=== PATIENT | female | born 1940 | race Caucasian/White ===

== ENCOUNTER → 2018-02-04 11:09 | Outpatient (CLI) | payer BC, SELFPAY ==
--- NOTE | 2018-02-04 | DI.MRI.S_ITS ---
PROCEDURE: MR SHOULDER LT WO CON INDICATIONS: LEFT SHOULDER ROTATOR CUFF INPINGEMENT SYNDROME TECHNIQUE: Noncontrast oblique coronal T2 fast spin echo with fat saturation, oblique sagittal T1 spin echo and T2 fast spin echo with fat saturation, axial T1 spin echo and T2 fast spin echo with fat saturation through the shoulder. COMPARISON: [facility], MR, SHOULDER WITHOUT CONTRAST, 10/30/2017, 13:04. FINDINGS: Image quality: Excellent. Rotator cuff: There is high-grade intrasubstance tearing of the anterior, mid, and posterior supraspinatus tendon extending from the humeral insertion site to the musculotendinous junction. Mild supraspinatus atrophy is present. Small scattered partial-thickness intrasubstance tears of the infraspinatus tendon anteriorly and posteriorly are present. Teres minor is intact. Subscapularis tendon demonstrates low-grade partial-thickness articular surface tears. Bones and bursae: No bone marrow contusions or fractures. No cyst formation within the bony glenoid is present. Moderate periarticular osteophyte formation at the glenohumeral joint is present. There is moderate acromioclavicular joint degeneration. The acromion demonstrates conventional anatomy, without an os acromiale. No pathologic subacromial-subdeltoid or subcoracoid bursal fluid is present. Capsule and soft tissues: Diffuse glenoid labral tearing is present. The long head of the biceps tendon demonstrates normal location and morphology. The rotator interval appears normal, without fibrosis. The coracohumeral ligament is normal in thickness. IMPRESSION: 1. Diffuse high-grade tearing of the supraspinatus tendon, associated with mild supraspinous atrophy. 2. Low-grade partial-thickness tears of the subscapularis and infraspinatus tendons. 3. Acromioclavicular joint osteoarthritis. 4. Glenohumeral joint osteoarthritis associated with diffuse glenoid labral tearing. Dictated by: Kay Garcia M.D. on 02/04/2018 at 13:04 Approved by: Kay Garcia M.D. on 02/04/2018 at 13:13
== END ==
PROVIDERS: PCP Family Medicine; Visit Provider Family Medicine
DX: M75.42 Impingement syndrome of left shoulder (principal); S46.812A Strain of other muscles, fascia and tendons at shoulder and upper arm level, left arm, initial encounter; M19.012 Primary osteoarthritis, left shoulder
CPT/HCPCS: 73221

== ENCOUNTER → 2019-07-29 12:11 | Outpatient (CLI) | payer BC, SELFPAY ==
--- NOTE | 2019-07-29 | DI.MRI.S_ITS ---
PROCEDURE: MR HEAD/BRAIN WO/W CON INDICATIONS: Trigeminal neuralgia TECHNIQUE: Noncontrast sagittal T1 spin echo, axial T2 fast spin echo, axial FLAIR, axial gradient echo, axial diffusion and ADC through the brain. Axial/sagittal/coronal 3-D CISS, thin-slice axial T1 spin echo with fat saturation through the skull base. After the administration of contrast, axial and coronal thin-slice T1 spin echo with fat saturation through the skull base, axial T1 spin echo with fat saturation through the brain. COMPARISON: None. FINDINGS: Image quality: Excellent. Trigeminal nerves: Cisternal segments of the trigeminal nerves are normal in appearance. No vascular loops noted adjacent to the cisternal segments of the trigeminal nerves. Trigeminal nerves have normal appearance and Meckel's cave. Cavernous sinus demonstrates normal postcontrast enhancement. No abnormal mass or abnormal postcontrast enhancement identified along the expected course of the trigeminal nerve divisions. CSF spaces: Ventricles are normal in size and shape. No extra-axial fluid collections. Basal cisterns are patent. Brain: No intracranial bleeds or mass effects. There is moderate, diffuse cerebral volume loss. There are mild periventricular and subcortical white matter chronic microvascular ischemic changes. No abnormal GRE weighted artifact identified in the brain parenchyma. No abnormal intracranial enhancement. Diffusion weighted images show no acute ischemic insults. Hernandez-white matter interface is intact. Brainstem is normal. Normal intravascular flow voids are present. Skull and face: Calvarial marrow signal is normal. Orbits appear normal. Sinuses: Mucosal thickening is noted in the maxillary sinuses bilaterally. The mastoids appear clear. IMPRESSION: 1. Trigeminal nerves and trigeminal nerve divisions are normal in appearance. No abnormal mass or suspicious postcontrast enhancement identified along the trigeminal nerves or the course of the trigeminal nerve divisions. 2. No abnormal intracranial mass or suspicious postcontrast enhancement. 3. Moderate, diffuse cerebral volume loss. 4. Mild periventricular and subcortical white matter chronic microvascular ischemic change. 5. Bilateral maxillary sinus mucosal thickening. Dictated by: Stacey Carter MD, PhD on 07/29/2019 at 15:59 Approved by: Stacey Carter MD, PhD on 07/29/2019 at 16:13
== END ==
PROVIDERS: PCP Family Medicine; Visit Provider Family Medicine
DX: G50.0 Trigeminal neuralgia (principal)
CPT/HCPCS: 70553; A9579

== ENCOUNTER → 2019-08-12 12:32 | Outpatient (CLI) | payer BC, SELFPAY ==
--- NOTE | 2019-08-12 | DI.MRI.S_ITS ---
PROCEDURE: MR CERVICAL SPINE WO CON INDICATIONS: Stricture of artery TECHNIQUE: Noncontrast sagittal T1 spin echo and T2 fast spin echo, sagittal STIR, foraminal oblique sagittal T2 fast spin echo, and axial gradient echo or T2 fast spin echo through the cervical spine. COMPARISON: None. FINDINGS: Image quality: Excellent. Alignment and Curvature: Loss of normal cervical lordosis. Mild grade 1 anterolisthesis of C3 on C4, C4 on C5, and C7 on T1. There is mild grade 1 retrolisthesis of C5 on C6. Bone Marrow: Marrow demonstrates normal overall signal. Mild reactive signal within the endplates adjacent to the C3-C4, C4-C5, C5-C6, C6-C7, and C7-T1 intervertebral discs. Spinal Cord: Visualized spinal cord has normal size and signal. No cerebellar tonsillar herniation. Paraspinous Soft Tissues: No paravertebral masses. Prevertebral soft tissues are normal in thickness. C2-C3: Moderate disc height loss and desiccation. Mild diffuse disc bulge. Mild facet hypertrophy bilaterally. Mild canal stenosis. Mild bilateral foraminal stenosis. C3-C4: Moderate disc height loss and desiccation. Mild diffuse disc bulge. Mild facet and uncovertebral hypertrophy bilaterally. Mild canal stenosis. Moderate bilateral foraminal stenosis. C4-C5: Mild disc height loss and desiccation. Mild diffuse disc bulge. Mild facet and uncovertebral hypertrophy bilaterally. Mild canal stenosis. Mild bilateral foraminal stenosis. C5-C6: Moderate disc height loss and desiccation. Mild diffuse disc bulge superimposed left far lateral broad-based protrusion. Mild facet and uncovertebral hypertrophy bilaterally. Moderate canal stenosis. Moderate right and severe left foraminal stenosis. Left C6 nerve root compression. C6-C7: Moderate disc height loss and desiccation. Mild diffuse disc bulge. Mild facet and uncovertebral hypertrophy bilaterally. Mild canal stenosis. Moderate left and mild right foraminal stenosis. C7-T1: Moderate disc height loss and desiccation. Mild diffuse disc bulge. Mild facet and uncovertebral hypertrophy bilaterally. Mild canal stenosis. Mild bilateral foraminal stenosis. IMPRESSION: 1. Multilevel degenerative disc and facet disease, as well as uncovertebral hypertrophy. 2. Multilevel canal stenoses, worst at C5-C6 where there is moderate canal stenosis. 3. Multilevel foraminal stenoses, worst on the left at C5-C6 where there is associated intraforaminal nerve root compression. Recommend correlation with clinical symptoms to ascertain relevance of this finding. Dictated by: Kay Garcia M.D. on 08/12/2019 at 13:21 Approved by: Kay Garcia M.D. on 08/12/2019 at 13:25
== END ==
PROVIDERS: PCP Family Medicine; Visit Provider Otolaryngology
DX: I77.1 Stricture of artery (principal); R42 Dizziness and giddiness; M50.31 Other cervical disc degeneration, high cervical region; M48.02 Spinal stenosis, cervical region
CPT/HCPCS: 72141

== ENCOUNTER → 2020-04-11 09:31 | Outpatient (CLI) | payer BC, SELFPAY ==
--- NOTE | 2020-04-11 09:34 | DI.RAD.S_ITS ---
PROCEDURE: XR CHEST 2V INDICATIONS: COUGH TECHNIQUE: 2 views of the chest were acquired. COMPARISON: [facility], , CHEST 2 VIEW, 10/30/2013, 12:27. FINDINGS: Surgical changes and devices: None. Lungs and pleura: Lungs are clear. No pleural effusions or pneumothorax. Mediastinum: Mediastinal contours are normal. Heart size is normal. Bones and chest wall: No suspicious bony abnormalities. Age-appropriate bony degenerative changes are seen. Accentuated thoracic kyphosis is seen. Soft tissues appear unremarkable. IMPRESSION: Unremarkable chest plain film study for age. Dictated by: Rell Oliver M.D. on 04/11/2020 at 9:19 Approved by: Rell Oliver M.D. on 04/11/2020 at 9:19
== END ==
PROVIDERS: PCP Family Medicine; Referring Provider Family Medicine; Visit Provider Family Medicine
DX: R05 Cough (principal)
CPT/HCPCS: 71046

== ENCOUNTER → 2020-11-03 08:57 | Outpatient (CLI) | payer BC, SELFPAY ==
[2020-11-03 10:18] LABS: Add Manual Diff / Slide Review NO; Basophils Absolute Auto 100 /uL (0-100); Basophils Percent Auto 1.5 % (0-2); Eosinophils Absolute Auto 600 /uL (0-450); Eosinophils Percent Auto 8.2 % (2-4); Hematocrit 41.5 % (36-46); Hemoglobin 14.2 g/dL (12.0-16.0); Lymphocytes Absolute Auto 2700 /uL (1100-4500); Lymphocytes Percent Auto 37.5 % (25-40); Mean Corpuscular HGB Conc 34.2 % (30-36); Mean Corpuscular Hemoglobin 31.3 PG (26-34); Mean Corpuscular Volume 91.5 fL (80-100); Monocytes Absolute Auto 500 /uL (0-900); Monocytes Percent Auto 7.3 % (3-14); Neutrophils Absolute Auto 3300 /uL (1500-7000); Neutrophils Percent Auto 45.5 % (50-75); Platelet Count 294 X10^3/uL (150-400); Red Blood Cell Count 4.53 X10^6/uL (4.0-5.2); Red Cell Distribution Width 13.2 % (11.6-14.8); White Blood Cell Count 7.2 X10^3/uL (4.5-11.0)
[2020-11-03 11:19] LABS: BUN Creatinine Ratio 15.2 (6-22); Blood Urea Nitrogen 10 mg/dL (7-17); Calcium 9.8 mg/dL (8.4-10.2); Carbon Dioxide 26 mmol/L (22-32); Chloride 99 mmol/L (98-107); Estimated Glomerular Filt Rate > 60.0 mL/min (>60); Glucose 82 mg/dL (80-110); Potassium 4.6 mmol/L (3.4-5.1); Sodium 133 mmol/L (137-145)
[2020-11-03 11:24] LABS: HEMOLYSIS 83 (0-50)
[2020-11-03 14:28] LABS: Hemoglobin A1C% w Est Avg Glu 5.1 % (4.0-6.0)
== END ==
PROVIDERS: PCP Family Medicine; Referring Provider Orthopaedic Surgery; Visit Provider Orthopaedic Surgery
DX: Z01.818 Encounter for other preprocedural examination (principal); M25.561 Pain in right knee; R73.9 Hyperglycemia, unspecified; Z01.812 Encounter for preprocedural laboratory examination
CPT/HCPCS: 36415; 80048; 83036; 85025; 93005

== ENCOUNTER 2020-11-07 11:40 | Day surgery (SDC) | payer BC, SELFPAY ==
[2020-11-07] VITALS (22 sets, daily range): BP systolic 68–134; BP diastolic 32–77; PULSE 43–86; RESP 8–20; TEMP 35.3–37.1; O2SAT 92–100; BMI 26.5
--- NOTE | 2020-11-07 12:00 | DI.RAD.S_ITS ---
PROCEDURE: XR KNEE RT 1TO2V INDICATIONS: post operative right knee TECHNIQUE: 2 view(s) of the knee acquired. COMPARISON: None. FINDINGS: Bones: Patient is status post knee joint arthroplasty. Hardware components are in expected positions. Visualized bony structures are intact. Soft tissues: Overlying postoperative changes are noted. IMPRESSION: Expected postoperative appearance Dictated by: Angus Landon M.D. on 11/07/2020 at 16:45 Approved by: Angus Landon M.D. on 11/07/2020 at 16:46
[2020-11-07] MEDS: PREGABALIN 75 MG CAPSULE PO (12:21)
[2020-11-07] MEDS: ACETAMINOPHEN 325 MG TABLET 975 MG PO (12:21)
[2020-11-07] MEDS: MELOXICAM 7.5 MG TABLET 15 MG PO (12:22)
--- NOTE | 2020-11-07 12:59 | PM.PREOP ---
Pre-operative Note COVID-19 COVID-19 status: Negative Result date/Date tested (Pos, Neg/Pending): 11/05/20 Interval Note History & Physical reviewed/Exam performed by Physician: Yes Changes to H&P: No
[2020-11-07] MEDS: CEFAZOLIN 2 GM/100 ML FROZ.PIGGY IV (14:10)
--- NOTE | 2020-11-07 14:34 | SUR.OPER ---
Supine on padded OR bed. Pillow under head, arms secured on padded armboards <90 degree abduction. Safety belt across torso. Non-operative leg secured with tape over blanket over lower leg. Operative leg secured in DeMayo/Bentley positioner. Foam padded brace at thigh of operative leg.
[2020-11-07] MEDS: MORPHINE 4 MG/ML INJ INJ (14:44)
[2020-11-07] MEDS: BUPIVACAINE 0.5% W/ EPI (PF) 30 ML VIAL INJ (14:46)
[2020-11-07] MEDS: SODIUM CHLORIDE 0.9% FLUSH 10 ML IV (14:47)
[2020-11-07] MEDS: BUPIVACAINE LIPOSOME 266 MG/20 ML VIAL INJ (14:47)
[2020-11-07] MEDS: TRANEXAMIC ACID 1,000 MG VIAL 1000 MG INJ ×2 (14:49→15:11)
--- NOTE | 2020-11-07 15:48 | PM.OP.1 ---
Operative Date/Time/Diagnoses Date of procedure: 11/07/20 Time of procedure: 15:48 Pre-op diagnosis: Right knee osteoarthritis Post-op diagnosis: same Procedure & Clinicians Procedure: Right total knee replacement Same procedure as scheduled: Yes Indications: The patient has had progressively worsening right knee pain with radiographic changes consistent with arthritis. Non-operative management has failed and the patient has requested total knee replacement. The risks, benefits and alternatives to surgery were discussed with the patient prior to proceeding. Risks discussed included, but were not limited to, failure to relieve pain, stiffness, infection, nerve damage, deep venous thrombosis, pulmonary embolism, stroke, coma, heart attack, permanent paralysis and , as well as the potential need for eventual revision of the prosthetic. Surgeon: Nash Gregorio [employer] Rater: Doug Miller Anesthesia Type: General, Spinal and Local Operative Notes Findings: Severe tricompartmental osteoarthritis with large osteophytes. Closure Type: primary Specimen(s): none sent Prosthetic devices, grafts, tissues, transplants, or devices: Implants used in this procedure were manufactured by the [employer] and [employer] and included the BCS II Journey total knee replacement with a size 4 right cobalt chromium femur, a size 3 right non porous tibial base plate, a 9 mm cross-linked polyethylene insert and a 32 mm oval Hodan II patella. Applied: implant(s) Estimated Blood Loss (mL): 25 Blood products transfused: none Tourniquet time (min): 51 Procedure in detail: The patient was seen in the pre-operative area, where the patient identified the right knee as the operative site and this was marked with my initials. The patient received pre-operative antibiotics, and was taken to the operating room and placed on the operative table in the supine position. After satisfactory anesthesia, a clinique counter manager out was performed. The right leg was encircled with a tourniquet about the proximal thigh, and the leg was prepared from the toes to the tourniquet with ChloroPrep in the usual fashion and draped through sterile drapes. The leg was elevated and exsanguinated with Eschmark bandage and the tourniquet inflated to [250] mmHg pressure. The knee was approached through an approximately 18 cm incision centered over the patella and carried into the knee through a medial parapatellar arthrotomy. The anterior osteophytes and soft tissues were removed. The rotational landmarks of [place]'s line and the transepicondylar axis were marked on the femur with electrocautery, and intramedullary guide holes for the femur and tibia were created. The distal femoral cut was made in 6 degrees of valgus using the intramedullary guide at the primary cut setting. The proximal tibial cut was then made using the intramedullary guide, taking 9 mm of bone off the less involved side. The extension gap was checked and the rotation of the femoral component confirmed with the gap balancing system. The anterior, posterior and chamfer cuts were then made. The posterior osteophytes and soft tissues were then removed. The posterior capsule was injected with part of a mixture of 50 ml 0.25% Marcaine mixed with 20 ml Exparel and 4 mg of morphine for post-operative pain control. The remainder of this mixture was injected into the capsule and subcutaneous tissues during cement curing. The tibia was prepared with the rotation set by an extra medullary guide. Trial tibial and femoral components were then placed and the intercondylar notch cut through the femoral trial. Range of motion was [], with good stability throughout the range. The patella was then cut to accommodate the patellar prosthetic. There was no need for a lateral release. The trials were then removed, and the femoral hole plugged with a bone plug. The bone was prepared with pulsatile lavage, and dried with a sponge. Cement was applied and the final prosthetics placed. Excess cement was removed during and after cement curing. After confirming there was no extruded cement posteriorly, the final tibial insert was placed. The knee was copiously irrigated and the tourniquet deflated. Hemostasis was obtained. The capsule was closed with interrupted # 2 polyester suture. The subcutaneous layer was closed with 3-0 Vicryl, and the skin with a running 3-0 V-Lock suture and Dermabond. An Aquacel Ag dressing was applied and the patient was taken to recovery having tolerated the procedure well. Complications: none Post-operative Condition: stable Disposition: PACU Plan for aftercare: The patient will be maintained on a standard total knee replacement protocol with weight bearing as tolerated. The patient will receive aspirin and sequential compression devices for DVT prophylaxis. The patient will be discharged home when safe for the home environment.
[2020-11-07] MEDS: LACTATED RINGERS 1,000 ML 100 ML IV ×2 (16:15→18:18)
--- NOTE | 2020-11-07 17:25 | SUR.PHASEI ---
Heart rate on admission in the 70's. At 1612, HR in the 40's with following BP 60's. Pt pale, c/o nausea. Dr Nava to bedside. Pt given a total of [address] Nava with return to baseline VS and nausea subsided. Please see EKG strips. Dr Nava aware of EKG changes. No new orders at this time. Pt denies SOB, chest pain, dizziness. Report given to WILL Patrick. Pt transferred to [facility]. VS on arrival to room.
[2020-11-07] MEDS: hydrOXYzine pamoate 25 MG CAPSULE PO (19:06)
[2020-11-07] MEDS: ONDANSETRON 4 MG/2 ML INJ IV (20:20)
[2020-11-07] MEDS: ACETAMINOPHEN 325 MG TABLET 650 MG PO (20:28)
[2020-11-07] MEDS: DOCUSATE 100 MG CAPSULE PO (20:29)
[2020-11-07] MEDS: ASPIRIN EC 81 MG TABLET PO (20:29)
[2020-11-07] MEDS: PANTOPRAZOLE 40 MG TABLET PO (20:29)
[2020-11-07] MEDS: diphenhydrAMINE 25 MG TABLET PO (20:51)
--- NOTE | 2020-11-07 22:12 | PC.NURSE ---
Addendum entered by Celina Heart R.N. 11/07/20 22:47: Patient voided 350cc this shift on bedpan. Original Note: Evening Shift Note Patient A&O, VSS, RA through out shift. At 1855 BP 88/52, 1902 BP 87/49 all other VSS, patient dizzy and itchy w/ mild nausea, no hives through out body. Patient R side lying w/ bed elevated 30 degrees, patient also pale in appearance. Patient repositioned supine with legs elevated on pillow. BP retaken after repositioning and at 1906 104/65, all other VSS, patient pink in appearance. MD Mota paged d/t previous hypotensive episode in recovery. New order for PRN Benadryl, no other new orders. Will continue to monitor and update assistant shift supervisor nurse. At 2207 patient bladder scanned and volume of 401. Patient currently on bedpan d/t to hypotensive episode. Will continue to monitor and straight cath in necessary per protocol.
[2020-11-08] MEDS: hydrOXYzine pamoate 25 MG CAPSULE PO ×2 (00:56→09:26)
--- NOTE | 2020-11-08 01:37 | PC.NURSE ---
2336: patient is alert and oriented. States she is seeing double which she states has improved since reports earlier was seeing 4 of everything. Breath sounds CTA with RA sat of 98%. HRR. BP trending low and, per evening RNMD was made aware. BP is currently 99/60 and patient states she does have some dizziness/ lightheadedness which has been present since I woke up. Denies nausea. BT hypoactive but patient states she has passed flatus. Was able to void on bedpan toward end of evening shift; denies dysuria. Turning self in bed. Due to low BP has not yet been out of bed so gait not assessed. Aquacel dressing covered with isrrael wrap to right knee is CDI. Denies pain but agreeable to having ice packs placed. States she has some numbness in left foot but was present pre-op. Feet cool to touch but has good sensation. Complains of itching and has had both Vistaril and Benadryl so lotion applied. Fall risk score at present time is low since patient has not yet been out of bed. Wearing bilateral calf SCD's.
[2020-11-08] MEDS: diphenhydrAMINE 25 MG TABLET PO (02:45)
[2020-11-08] MEDS: LACTATED RINGERS 1,000 ML 100 ML IV (02:46)
[2020-11-08 05:02] VITALS: BP 141/83; PULSE 63; RESP 16; TEMP 37; O2SAT 97
[2020-11-08 05:21] LABS: Hematocrit 30.9 % (36-46); Hemoglobin 10.4 g/dL (12.0-16.0)
--- NOTE | 2020-11-08 07:40 | PM.DS.1 ---
History of Present Illness History of Present Illness Date Patient Seen: 11/08/20 Time Patient Seen: 07:40 Chief complaint: OPB Narrative: Please refer to previously documented HPI and chart. Discharge Providers Provider Discharge Date: 11/08/20 Primary care physician: Roseann Dietrich MD Consults: 11/07/20 17:55 Consult to Discharge Planning Routine Comment: Consult to Physical Therapy Evaluate & Treat Comment: Physician Instructions: postop TKA protocol Discharge provider: Doug Miller PA-C Summary Hospital Course Discharge Diagnosis: Right knee osteoarthritis Status post right total knee arthroplasty Hospital Course: 80 year-old male who is appropriately consented for the above listed procedure and presented to OR undergoing procedure without difficulty or complication admitted to the hospital for rehabilitation overnight without issue. At the time of discharge the patient was able to mobilize appropriately with PT/OT. Pain was controlled with oral analgesics and ASA 81 mg PO BID. The patient was able to void without difficulty and appropriately discharge after favorable evaluation. He denied any significant fever, chills, chest pain, shortness of breath, intractable pain or related weakness numbness or tingling. The patient verbalized understanding all postoperative care instructions. Status at Discharge Cognitive/behavioral status at discharge: oriented Functional status at discharge: uses cane/walker Overall status at discharge: patient is progressing back to baseline Time Spent with Patient Time spent: Less than 30 minutes Exam Vital Signs (past 8 hours): - 11/07/20 23:41 11/08/20 05:02 Temperature 98.8 F 98.6 F Pulse Rate 71 63 Respiratory Rate 20 16 Blood Pressure 99/60 141/83 H Pulse Oximetry 98 97 Oxygen Delivery Method Room Air Oxygen Flow Rate 0 Narrative Exam Narrative: Lying in bed, no apparent distress, alert and oriented x3. Calves soft, compressible and nontender bilaterally. Distal fact did right lower extremity is functional with Nicole and plantar flexion and neurovascularly intact with gross sensation and 2+ pulses. The wound is clean dry and intact. Objective Labs Result Diagrams: 11/08/20 04:40 Labs: Laboratory Results - last 24 hr 11/08/20 04:40 Hgb 10.4 L Hct 30.9 L [facility] Medical History (Updated 11/02/20 @ 13:15 by Emma Stephens RN) Constipation Hearing loss in left ear Heartburn Insomnia Primary osteoarthritis of right knee Trigeminal neuralgia of left side of face (~11/2019) Surgical History (Updated 11/02/20 @ 13:17 by Emma Stephens RN) H/O bursectomy H/O repair of rotator cuff History of cholecystectomy History of hysterectomy History of knee surgery Social History household members: family Smoking Status: Former smoker alcohol intake: never Discharge Assessment & Plan Assessment and Plan Assessment: Right knee osteoarthritis Status post total right knee arthroplasty Plan of Treatment: The patient will be maintained on a standard total knee replacement protocol with weight bearing as tolerated. The patient will receive aspirin for DVT prophylaxis. The patient will be discharged home when safe for the home environment and follow-up for re-evaluation clinic in 2 weeks. Discharge Plan Discharge Plan Patient Disposition: Home Provider Discharge Comment: After PT/OT Discharge orders & Medications Discharge Orders: Discharge (Order); Ordered 11/08/20 Ordered By: Doug Miller Prescriptions: New aspirin 81 mg Tablet,Delayed Release (Dr/Ec) 81 mg PO BID Qty: 60 RF: 0 oxycodone 5 mg Tablet 5 mg PO Q4-5H PRN (Reason: Pain, Moderate (4-6)) Qty: 60 RF: 0 Continued omeprazole 40 mg Capsule,Delayed Release(Dr/Ec) 40 mg PO BID RF: 0 ferrous sulfate [Iron (ferrous sulfate)] 325 mg (65 mg iron) Tablet 325 mg PO Q OTHER DAY RF: 0 docusate sodium [Stool Softener] 100 mg Capsule 100 mg PO DAILY RF: 0 hydroxyzine HCl 25 mg Tablet 25 - 50 mg PO Q4H PRN (Reason: Itching) RF: 0 polyethylene glycol 3350 [Miralax] 17 gram/dose Powder 17 g PO DAILY RF: 0 duloxetine 30 mg Capsule,Delayed Release(Dr/Ec) 30 mg PO DAILY RF: 0 melatonin 10 mg Capsule 10 mg PO BEDTIME RF: 0 Follow up/Referrals: Roseann Dietrich MD [Primary Care Provider] - Nash Gregorio MD [Physician] - (2 weeks ) Diet/Activity/Treatments Diet: Diet as Tolerated Activity: The patient will be maintained on a standard total knee replacement protocol with weight bearing as tolerated. Cold/Heat Therapy: Ice 20 min every hour as tolerated Skin/Wound/Dressing Care Report to your healthcare provider any signs of infection, such as:: chills, fever, night sweats, increased pain, unusual drainage and unusual redness Dressing: Call if soiled or saturated. Visit Report/Discharge Packet Instructions: DI for Knee Replacement, Oxycodone Stand Alone Forms: Surgery Discharge Discharge Data Primary Care Provider: Roseann Dietrich Attending Provider: Nash Gregorio
[2020-11-08] MEDS: DOCUSATE 100 MG CAPSULE PO (08:03)
[2020-11-08] MEDS: ASPIRIN EC 81 MG TABLET PO (08:03)
[2020-11-08] MEDS: DULOXETINE 30 MG CAPSULE PO (08:03)
[2020-11-08] MEDS: ACETAMINOPHEN 325 MG TABLET 650 MG PO (08:03)
[2020-11-08] MEDS: PANTOPRAZOLE 40 MG TABLET PO (08:03)
[2020-11-08 08:07] VITALS: BP 104/50; PULSE 75; RESP 16; TEMP 37.1; O2SAT 95
--- NOTE | 2020-11-08 09:10 | CM.DANOTE ---
Addendum entered by Ingrid Kraus LPN 11/08/20 09:20: Met with pt as planned. Introduced self and role. Pt was just going out into the vizcaino with PT Dalia. She was using a fww and Dalia stated should would likely need this rather that using her own 4ww and she requested order for same. Pt agreeble to this in case she needs it. Dalia stated that an afternoon PT session would be advisable. Pt confirms her 29 year old granddaughter Yohana, who has been staying with her for 15 months and taking care of me will be helping her after d/c. Pt also confirms she has Medicare A in addition to her [employer] insurance. Original Note: Discharge Planning/Care Management DCP: assessment: case received, EMR reviewed. See that PT will see pt for first time today. Pt is a 80 year old female who admitted yesterday for a scheduled R TKA: surgeon: Dr. Gregorio. PCP: Shelbie Dietrich Payer: [facility] Admission status: in review. A d/c order is in place but anticipate this is pending PT clearance. Will discuss in Team Rounds and check in now with pt. She lives on [address]. Likely will need [facility] priority board: [facility] can facilitate this. CM Discharge Assessment Start: 11/08/20 09:09 Freq: Status: Active Protocol: Document 11/08/20 09:10 ITV (Rec: 11/08/20 09:10 IT [id number]) Discharge Planning Assessment Advance Directives? No History Provided By Medical Record Prior Living Arrangements House Household Members family Is patient alert and oriented? Yes Pre-Anesthesia Assessment Start: 11/02/20 09:51 Freq: Status: Complete Protocol: Document 11/02/20 09:51 J (Rec: 11/02/20 09:52 [facility] [id number]) Pre-Anesthesia Assessment Preferred Name Edrie E-Dree Patient Information Reviewed Via Phone Assessment Assessment Completed With Patient Diagnostic Results BMP/CMP,CBC,EKG,Other Comment Covid Primary Care Provider Roseann Dietrich Seen Specialist in Last 12 Months Yes Specialist Seen Orthopedist,Urologist,Other Comment GI - Yasmin Torres; Uro - Britany Gomez Primary Language Kittitian Preferred Language Kittitian Butter Wrapper Required No Height 160.02 cm Hearing Ability Hard of Hearing Visual Impairment No Limitations Dentition Type Teeth, Natural Present,Dental Implants Barriers to Learning Auditory Other Aids No Hx Anesthesia Reactions No Hx Family Anesthesia Reaction No Hx Malignant Hyperthermia No Hx Blood Transfusions No Hx Blood Transfusion Reaction No Anesthesia Review Requested No Cad Draftsman No alcohol intake never Smoking Status Former smoker Has it been 2 weeks or less since No patient quit smoking how long ago did patient quit smoking 1979 Substance Use Type does not use Pain Present Pain Reported Comment Right knee, back Musculoskeletal Symptoms Abnormal Gait,Back Pain, Difficulty Walking,Joint Pain, Joint Stiffness,Joint Swelling ,Limited Range of Motion,Neck Pain History of Falling (Recent or History of Yes ) Comment twice in past year Patient is completely paralyzed or No completely immobile Ambulatory Aid None/bed rest/nurse assist Gait/Transferring Impaired Mental Status Oriented to own ability Is patient on oxygen? No Does patient have SANTIZO/SOB No Hx Sleep Apnea No CPAP/BIPAP use not prescribed Will Bring CPAP/BIPAP DOS No Currently Taking a Beta Matias No Can You Climb a Flight of Stairs Without Yes SOB Hx Chest Pain No Hx SOB No Hx Syncope or Dizziness No Anti-Coagulant Therapy No Has a Ems Driver No Cardiac Testing Yes: Stress - was on statin 10 years ago, no problem since Hx Pacemaker/ICD No Cardiac Clearance Received Not Applicable Diet Type At Home Regular dysphagia No Gastrointestinal Symptoms Abdominal Pain,Constipation, Reflux Comment Lots of fresh produce; abd pain when constipated Bladder Pattern Nocturia Urinary Catheter Present No Hx Urinary Self Catheterization No Diabetes No Patient No Lactating No Hx Drug Resistant Organism No Presence of External or Internal Medical No Devices Have you had any close contact with No someone diagnosed with COVID-19? Are you experiencing any of these No symptoms symptoms? Evaluation/Screening for possible COVID- Yes 19 infection completed? Comment Muscle pain/weakness since Covid shot on 10/24/20; Covid test 11/04/20 [place] Marital Status Lives With family Prior Living Arrangements House Number of Floors (Floors) Two Floors Number of Stairs To Enter/Railing? Able to stay on main level post-op Has a ramp Support System Family Does the Patient Have Assistance After Yes Surgery Patient Discharge Plan Description Return Home Comment Granddaughter staying with her , son and daughter will be there at times Feels Safe in Current Environment Yes Been Physically Hurt or Threatened By a No Person in Current Environment Do you have thoughts of harming yourself None or others? Are you currently considering suicide? No Do you have a plan to hurt yourself or No Plan others? Do You Have Any Spiritual Beliefs That No May Affect Your HC Choices? Do You Have Any Cultural Practices That No May Affect Your HC Choices? Who Can We Speak to About Patient's Care Family & Friends Identifying Code for Release of Patient Declined Information Health Care Proxy/Next of Kin Granddaughter - Yohana Madrigal Health Care Proxy Emergency Contact Name Granddaughter - Yohana Madrigal Emergency Contact Advance Directives? No Power of Laborer [place] House No PAC Instructions Assistance for 24 hours post- op,Do not shave/clip surgical site,Durable medical equipment ,Medications to take/avoid, Nasal antibiotic,No ETOH/ petroleum product on skin DOS, NPO,Post-op transportation,Pre -op antibiotic,Pre-surgical wash,Sensory aids,Sturdy shoes /comfortable clothes,Do not bring valuables and remove jewelry
[2020-11-08] MEDS: OXYCODONE IR 5 MG TABLET PO (09:26)
[2020-11-08] MEDS: polyethylene glycoL 3350 17 GM POWD.PACK PO (09:26)
--- NOTE | 2020-11-08 09:35 | PT.IIE ---
Current Diagnoses Unilateral primary osteoarthritis, right knee (11/07/20) Surgery Performed Operation Date: 11/07/20 13:15 Actual Procedures p Total Knee Arthroplasty(Right) - Nash Gregorio MD Surgical History (Last Updated 11/02/20 @ 13:17 by Emma Stephens, RN) H/O bursectomy H/O repair of rotator cuff History of cholecystectomy History of hysterectomy History of knee surgery Medical History (Last Updated 11/02/20 @ 13:15 by Emma Stephens, RN) Constipation Hearing loss in left ear Heartburn Insomnia Primary osteoarthritis of right knee Trigeminal neuralgia of left side of face (~11/2019) Physical Therapy Inpatient Evaluation/Re-Eval M1 PT/OT-IP Prior Functional Status Start: 11/08/20 08:34 Freq: NEEDED Status: Active Protocol: Document 11/08/20 09:35 AW (Rec: 11/08/20 10:29 AW [id number]) Medical Review Prior Functional Status Medical History Reviewed Yes Communication WNL. Pt is an effective verbal communicator. Mobility and Gait Pt used a 4WW for much of the past year but has not used any device for the past month. She notes no particular time or distance limit to her walking or standing. Activities of Daily Living and IADL's Pt has required some assist to get in and out of the bathtub . She is otherwise independent with ADL's. She lives with her granddaughter who provides some assist with IADL's and showers. Social History Household Members family Living Arrangements House Number of Floors (Floors) Two Floors Number of Stairs To Enter/Railing? Pt has a ramped entry and stays on the main level. Home Environment High Toilet,Tub/Shower,Ramp, Bidet Home Equipment Four Wheel Walker,Quad Cane, Shower Seat without Backrest, Hand Held Shower Employment Status Retired Additional Social History Comment Pt has an adjustable bed. She uses a door to steady herself getting on and off the toilet. She lives on [address] with her granddaughter, Kia, who took two weeks off work to assist after surgery. Pt will be picked up by her friend, Leticia. M2 PT-IP Current Condition Start: 11/08/20 08:34 Freq: NEEDED Status: Active Protocol: Document 11/08/20 09:35 AW (Rec: 03/16/21 10:29 AW [id number]) Physical Therapy Current Condition Current Condition Evaluation Date 11/08/20 Treatment Diagnosis s/p R TKA Onset Date 11/07/20 Weight Bearing Status Weight Bearing Status Weight Bear as Tolerated M3 PT-IP Subjective Start: 11/08/20 08:34 Freq: NEEDED Status: Active Protocol: Document 11/08/20 09:35 AW (Rec: 11/08/20 10:29 AW [id number]) Subjective Physical Therapy Visit Type Type Initial Evaluation Visit Start Time 08:47 Visit Stop Time 09:35 Total Visit Minutes 48 Number of ARTIFICIAL PEARL MAKER Visits 0 Physical Therapy Visit Comments Patient Comments Pt is willing to participate with PT Patient Goals Pt wants to be on the [address] [place] [id number]. Therapy Pain Assessment Pain When Pain Assessed During Mobility Pain Present Pain Present Pain Reported Location R knee Intensity 7 Scale Used 4/10 at rest Pain Management Techniques Apply Cold,Distraction,Timing of Activity with Medications M4 PT-IP Mobility and Gait Start: 11/08/20 08:34 Freq: NEEDED Status: Active Protocol: Document 11/08/20 09:35 AW (Rec: 11/08/20 10:29 AW [id number]) PT-Bed Mobility Assessment Supine to Sit Supine to Sit Standby Assistance Sit to Supine Sit to Supine Standby Assistance Scooting Scooting to Edge of Bed Standby Assistance PT-Transfer Assessment Sit to and From Stand Sit to and from Stand Standby Assistance,Contact Guard Assistance,1 Person Assistance,Use of Upper Extremities Equipment Transfer Assistive Device Gait Belt,Front Wheeled Walker Orthotic/Prosthetic Devices or Brace: No Transfers Transfer Destination Chair,Bedside Commode Transfer Technique Stand Step Pivot Transfer Ability Level of Assist Standby Assistance,Use of Upper Extremities Comments Mobility Comments Pt was sitting EOB as PT arrived. She transferred sit < > supine SBA and then stood from the bed CGA with FWW which was her first time OOB since surgery. She ambulated to the bathroom where she transferred to and from the commode SBA and cues for RLE placement. BSC is similar height to toilet at home. Pt then stood SBA and ambulated with FWW SBA to the sink. She completed handwashing with good balance. She ambulated 110 feet total in the vizcaino and then transferred to the bedside chair SBA. Pt was left with call light and all needs in reach. LEATHER SHAVER provided fresh ice pack. Gait Assessment Gait Gait Assistance Required: Standby Assistance,Contact Guard Assist Distance (Feet) 110 Able to Maintain Weight Bearing Status Yes During Gait Assistive Devices Assistive Device Gait Belt,Front Wheeled Walker Orthotic/Prosthetic Devices or Brace: No Gait Deviations General Gait Pattern Antalgic,Decreased Stride Length,Decreased Feet Clearance,Flexed Trunk,Step-to Gait Factors Limiting Gait Function Factors Limiting Gait Function Decreased Activity Tolerance, Decreased Strength,Limited Range of Motion,Pain,Poor Balance Comments Gait Comments Pt required CGA with FWW first 40 feet and then no more than SBA as she gained confidence with the FWW. Stair Climbing Assessment Comments Stair Climbing Comments Not assessed. No stairs at home. PT-Balance Assessment Sitting Balance and Reactions Static Sitting Balance Ability Normal Dynamic Sitting Balance Ability Normal Standing Balance and Reactions Static Standing Balance Ability Good Dynamic Standing Balance Ability Good Device Used FWW M5 PT-IP Objective Assessments Start: 11/08/20 08:34 Freq: NEEDED Status: Active Protocol: Document 11/08/20 09:35 AW (Rec: 11/08/20 10:29 AW [id number]) Orientation Orientation/Cognition Level of Alertness Alert Orientation Name,Date,Day of Week,Place, Situation Language Function Ability No Deficits Noted Safety Awareness Understands Safety Issues Memory Description No Deficits Noted Gross Range of Motion Lower Extremity ROM Assessment Right Impaired Strength Lower Extremity Strength Assessment Right Impaired Hip 4-/5 Knee 3/5 Comments Strength Comments LLE grossly 4/5 Sensation Assessment Sensation Gross Sensation WNL Muscle Tone Muscle Tone WNL Yes M6 PT-IP Treatment Start: 11/08/20 08:34 Freq: NEEDED Status: Active Protocol: Document 11/08/20 09:35 AW (Rec: 11/08/20 10:29 AW [id number]) Physical Therapy Treatment Exercises Exercises Ankle Pumps,Quad Sets,Heel Slides,Passive Knee Extension Hang,Seated Knee Flexion/ Extension Knee ROM Measurement In sitting ~ 5-100 Education Education Provided Weight Bearing Status,Post-Op Packet,Safety Equipment Issued Equipment Type and Company youth-sized FWW from [employer] Other Treatments Other Treatment Performed Provided education on WB status, safe use of FWW, and recommendation for FWW at least until evaluated by outpatient PT. Pt agreed and PT dispensed and sized FWW. M7 PT-IP Assessment and Plan Start: 11/08/20 08:34 Freq: NEEDED Status: Active Protocol: Document 11/08/20 09:35 AW (Rec: 11/08/20 10:29 AW [id number]) PT Summary Assessment and Plan Potential Rehabilitation Potential Good Status of Condition at Evaluation Stable Summary Impairments Pain,ROM,Strength,Balance,Bed Mobility,Transfers,Gait, Activity Tolerance Assessment Summary Janny is a 80 yo woman seen for PT evaluation on POD1 following R TKA. She is modified independent at baseline with use of 4WW for most mobility. On evaluation, pt required CGA initially and then SBA as she gained confidence with FWW. Pt lives with her granddaughter, Kia, who has taken time off work to assist. She is safe to discharge when medically stable. Outpatient PT is already scheduled. Goals Bed Mobility Goal Independent Transfer Goal Standby Assistance,Front Wheeled Walker Gait Goal Standby Assistance,Front Wheel Walker Gait Distance 150 Days to Meet Goals 2 Frequency of Treatment Frequency Of Treatment Twice a Day Treatment Plan Physical Therapy Treatment Plan Bed Mobility Training,Transfer Training,Gait Training, Therapeutic Exercise,Balance Retraining,Post Op Education, Discharge Planning,Hot or Cold Pack Other Recommendations and Next Treatment gait training with FWW Focus Recommendations To Nursing Amount of Assist Needed 1 Person Assist Discharge Recommendations PT Discharge Recommendations Home with Assistance, Outpatient PT Equipment Needed for Home Before FWW - already dispensed Discharge Transportation Needs at Discharge Private Vehicle
--- NOTE | 2020-11-08 10:36 | PC.NURSE ---
Reviewed d/c packet and educational materials with pt. Reviewed medication regimen, next dose due, purpose/route/side effects. Reviewed post op knee teaching with emphasis on s/s post op wound infx. Instructed pt to notify MD if dsg is soiled/saturated. Instructed pt to call and schedule a post op appt within 2 weeks of today. Pt verbalizes understanding. Pain was well managed with PO oxy and vistaril. She was given a written rx for oxycodone as [place] PIV removed with cath tip intact. Pt was assisted to transfer to w/c and all belongings were gathered and sent with pt at 1040. Pt left in no distress.
== END 2020-11-08 10:40 | disposition home or self-care (01) ==
LOC: OR 11:44 → AC 11:44
PROVIDERS: PCP Family Medicine; Referring Provider Orthopaedic Surgery; Visit Provider Orthopaedic Surgery
PROC: 0SRC0JZ Replacement of Right Knee Joint with Synthetic Substitute, Open Approach (ICD-10-PCS; CPT 27447; principal; 2020-11-07 13:15)
DX: M17.11 Unilateral primary osteoarthritis, right knee (principal); K21.9 Gastro-esophageal reflux disease without esophagitis
CPT/HCPCS: 27447; 36415; 73560; 85014; 85018; 94762; 97116; 97161; C1776; C9290; J0690; J1100; J2250; J2270; J2274; J2405; J2704

== ENCOUNTER 2020-11-11 16:03 | Observation (INO) | payer BC, SELFPAY ==
[2020-11-07 19:08] VITALS: BMI 26.5
[2020-11-11] VITALS (17 sets, daily range): BP systolic 103–155; BP diastolic 55–66; PULSE 49–79; RESP 12–25; TEMP 36.5–36.7; O2SAT 94–98; BMI 28.0
--- NOTE | 2020-11-11 | DI.CT.S_ITS ---
PROCEDURE: CT ABDOMEN PELVIS W CON INDICATIONS: RECENT SURGERY, SYNCOPE, ABDOMINAL PAIN TECHNIQUE: After the administration of intravenous contrast, 5 mm thick sections acquired from the diaphragm to the symphysis. 5 mm coronal and sagittal reformats were acquired. For radiation dose reduction, the following was used: automated exposure control, adjustment of mA and/or kV according to patient size. COMPARISON: None. FINDINGS: Image quality: Excellent. ABDOMEN: Lung bases: Mild bibasilar linear scarring/atelectasis are seen. Heart size is normal. Solid organs: Liver is normal in size and enhancement. Gallbladder is surgically absent. Mild intrahepatic biliary ductal dilatation and common bile duct dilatation is seen with distal common bile duct measures up to 11 mm in diameter . Pancreas enhances normally. Spleen is normal in size and enhancement. No adrenal nodules. Kidneys demonstrate normal size and enhancement, without hydronephrosis. Peritoneum and bowel: Bowel loops demonstrate normal wall thickness and caliber. No free fluid or air. Moderate fecal stasis in the colon is seen with fecal matter distending rectum. Sigmoid diverticulosis is seen, no CT evidence of acute diverticulitis. No abscess collection. Nodes and vessels: No retroperitoneal or mesenteric adenopathy by size criteria. Aorta and inferior vena cava are normal in size. Miscellaneous: No ventral hernias. PELVIS: Genitourinary: Bladder wall thickness is normal. Miscellaneous: No inguinal hernias or adenopathy. Bones: No suspicious bony lesions. No vertebral body compression fractures. IMPRESSION: 1. Suggestion of mild constipation and moderate fecal impaction in the rectum. No abnormal bowel wall thickening. No free fluid or free air. No abscess collection. 2. Prior cholecystectomy . Mild intrahepatic biliary ductal dilatation and prominence of common bile duct most likely represent postsurgical dilatation of biliary ducts. Dictated by: Trenton Santiago M.D. on 11/11/2020 at 18:30 Approved by: Trenton Santiago M.D. on 11/11/2020 at 18:33
--- NOTE | 2020-11-11 17:06 | DI.RAD.S_ITS ---
PROCEDURE: XR ACUTE ABDOMEN SERIES INDICATIONS: recent surgery, abd pain, constipation TECHNIQUE: One view chest and two views of the abdomen were acquired. COMPARISON: None. FINDINGS: Surgical changes and devices: None. Chest: Lungs are clear. Heart size is normal. No pleural effusions. No pneumoperitoneum. Abdomen: A few mildly air distended small bowel loops are noted in upper to mid abdomen with a few air-fluid levels. Significant fecal stasis throughout the colon is seen extending to the rectum. No suspicious calcifications. Visualized solid organ contours appear normal. Bones: No suspicious bony lesions. IMPRESSION: Finding is consistent with constipation and fecal impaction. No gross free air. No acute cardiopulmonary pathology. Dictated by: Trenton Santiago M.D. on 11/11/2020 at 17:45 Approved by: Trenton Santiago M.D. on 11/11/2020 at 17:46
[2020-11-11] MEDS: SODIUM CHLORIDE 0.9% 1,000 ML 150 ML IV (17:16)
--- NOTE | 2020-11-11 17:20 | ED.SYNCOPE ---
HPI - Syncope <CHARLES Sanchez - Last Filed: 11/11/20 20:58> General Chief Complaint: Abdominal Pain Stated Complaint: total knee replacement-no BM for days Time Seen by Provider: 11/11/20 16:20 Source: patient Mode of arrival: EMS Limitations: no limitations History of Present Illness HPI narrative: This is a 80 year old female former smoker, who has past medical history significant for right total knee replacement 5 days ago 4 days ago on 11/06/[address] Gregorio presents to ED by air ambulance from [facility] with chief complain of no bowel movements for 6 days and abdominal discomfort. Patient had experience near-syncope while walking to the bathroom when [facility] was at the patient's home with symptoms of weakness, dizziness, and cold sweats. Patient states she had not received any IV medications from [facility] at that time. Patient has been taking oxycodone 5 mg q.4 hours along Tylenol and Motrin according to patient's granddaughter Yohana (over the phone). He had taken 1 dose of MiraLax today has been taking stool softener at least twice a day daily. Patient denies fever, chills, vomiting but nausea and slightly decreased appetite. Patient has history of constipation but usually has bowel movements daily. Patient denies known history of bradycardia and has remote history of hysterectomy. Patient states she has been using a walker to ambulate to the bathroom at home. Patient denies breathing short of breath, dyspnea or chest pain. Patient reports intact sensation distally in right foot and is able to move her toes without difficulty. She denies right calf pain. Related Data Home Medications Medication Instructions Recorded Confirmed docusate sodium [Stool Softener] 100 mg PO DAILY 11/02/20 11/11/20 duloxetine 30 mg PO DAILY 11/02/20 11/11/20 ferrous sulfate [Iron (ferrous 325 mg PO Q OTHER DAY 11/02/20 11/11/20 sulfate)] hydroxyzine HCl 25 - 50 mg PO Q4H PRN 11/02/20 11/11/20 melatonin 10 mg PO BEDTIME 11/02/20 11/11/20 omeprazole 40 mg PO BID 11/02/20 11/11/20 polyethylene glycol 3350 [Miralax] 17 g PO DAILY 11/02/20 11/11/20 Previous Rx's Medication Instructions Recorded aspirin 81 mg PO BID #60 tab 11/08/20 oxycodone 5 mg PO Q4-5H PRN #60 tab 11/08/20 Allergies Allergy/AdvReac Type Severity Reaction Status Date / Time Phenothiazines Allergy Severe THROAT Verified 11/07/20 12:09 [PHENOTHIAZINES] SWELLS SHUT codeine [CODEINE] Allergy Intermediate ITCHING-OK Verified 11/07/20 12:09 if takes benadryl with it latex Allergy Facial Verified 11/07/20 12:09 swelling Review of Systems <CHARLES Sanchez - Last Filed: 11/11/20 20:58> Review of Systems Narrative: General: Denies fever, chills, (+) fatigue, malaise, sweats. HEENT: Denies sinus pain, ear pain, sore throat, difficulty swallowing, (+) dizziness. Respiratory: Denies dyspnea, cough, wheezing, hemoptysis, sputum. Cardiovascular: Denies chest pain, palpitations, orthopnea, edema. Gastrointestinal: See HPI : Denies dysuria, frequency, incontinence, hematuria, urinary retention. Musculoskeletal: See HPI Skin: Denies rash, skin lesions, or other. Neurologic: Denies (+) weakness, headache, numbness, change in speech, confusion, seizures, incoordination. Psychiatric: No concerning psychosocial issues. 12-point review of systems is negative except for those stated above. Patient History <CHARLES Sanchez - Last Filed: 11/11/20 20:58> Medical History (Updated 11/11/20 @ 22:23 by CHARLES Mane) Constipation Depression Hearing loss in left ear Heartburn Insomnia Primary osteoarthritis of right knee Trigeminal neuralgia of left side of face (~11/2019) Surgical History (Updated 11/11/20 @ 22:29 by CHARLES Mane) H/O bursectomy H/O repair of rotator cuff History of cholecystectomy History of hysterectomy History of knee surgery Family History (Updated 11/11/20 @ 22:04 by CHARLES Mane) Mother Old age Father Myocardial infarction Social History household members: family Smoking Status: Former smoker alcohol intake: never Smoking Status: Former smoker Substance Use Type: does not use Exam <Tye CHARLES Michelle - Last Filed: 11/11/20 20:58> Narrative Exam Narrative: GEN: Alert, oriented x 3, well appearing and nourished, and in no acute distress. Head: Normal cephalic, atraumatic. No scalp or temporal tenderness, palpable mass or rash. EYES: Pupils are equal, round, and reactive to light and accommodation. Extraocular muscles are intact bilaterally. There is no subconjunctival hemorrhage, exudate and sclera non-icteric. ENT: Hearing grossly intact. Airway patent. Neck: Trachea in midline. No JVD, non-tender without lymphadenopathy. No masses or thyroid megaly. Supple, non-tender and no meningeal signs. CARDIAC: Normal regular rate and rhythm without murmurs, gallops, or rubs. No chest wall tenderness. No peripheral edema, cyanosis or pallor. Capillary refill is less than 2 seconds. RESPIRATORY: Lungs are clear to auscultate bilaterally. No cough, wheezes, rales, or rhonchi. No stridor, respiratory distress, increase work of breathing, or accessary muscle used. ABD: Abdomen soft, tender to palpate in right lower, left lower, epigastric region. No guarding. Bowel sounds are normal in all 4 quadrants. There is no palpable masses or organomegaly. EXT: Right knee surgical site covered with post-op dressing and acewrap. Ecchymosis distal to surgical site on the anterior barrow. No loss of sensation, effusion or edema to bilateral leg. Pedal pulse in right foot intact with brisk cap refill. SKIN: Warm, dry, pale. No erythema, lesions or rash over visible areas. BACK: Nontender without deformity or crepitance. No flank tenderness. NEUROLOGICAL: Alert and oriented to place, time and person. Sensation and motor function intact bilaterally. No facial droops, dysphasia. PSYCHIATRIC: Good judgement and reason, without hallucinations, abnormal affect or abnormal behaviors during the examination. Patient is not suicidal. Initial Vital Signs Initial Vital Signs: Vital Signs Temperature 97.7 F 11/11/20 16:07 Pulse Rate 51 L 11/11/20 16:07 Respiratory Rate 12 11/11/20 16:07 Blood Pressure 139/64 11/11/20 16:07 Pulse Oximetry 97 11/11/20 16:07 <Da Garcia DO - Last Filed: 11/12/20 07:36> Initial Vital Signs Initial Vital Signs: Vital Signs Temperature 97.7 F 11/11/20 16:07 Pulse Rate 51 L 11/11/20 16:07 Respiratory Rate 12 11/11/20 16:07 Blood Pressure 139/64 11/11/20 16:07 Pulse Oximetry 97 11/11/20 16:07 Scores <Tye LockeSirishaCHARLES Dallas - Last Filed: 11/11/20 20:58> GCS [place] coma scale eye opening: Spontaneous [place] coma scale verbal response: Orientated Dianelys coma scale motor response: Obey commands Dianelys coma scale total score: 15 HEART Score Heart Score history: Moderately Suspicious Heart Score EKG: Non-Specific repolarization disturbance Heart Score Age: > or = 65 years old Heart Score risk factors: 1-2 risk factors Heart Score troponin: < or = to normal limit Heart Score Total: 5 PERC Score Age greater than or equal to 50 years: Yes Heart rate greater than or equal to 100 bpm: No Room Air O2 Sat less than 95%: No Unilateral leg swelling: No Recent trauma or surgery: Yes Hemoptysis: No Prior PE or DVT: No Hormone Use: No Total PERC Score: 2 Wells' Criteria for PE Clinical signs and symptoms of DVT: No PE is #1 Dx or equally likely: Yes Heart rate > 100: No Immobilization at least 3 days or surg in previous 4 weeks: Yes History of PE or DVT: No Hemoptysis: No Malignancy w/Treatment within 6 months or palliative: No Wells' PE Score total: 4.5 Course <CHARLES Sanchez - Last Filed: 11/11/20 20:58> Orders Ordered: Acetaminophen (Acetaminophen 325 Mg Tablet) 650 mg PO Q4HR PRN PRN Reason: Fever/Mild Pain (1-3) Hydrocodone Bitart/Acetaminophen (Hydrocodone/Acet 5/325 Tablet) 1 tab PO Q4HR PRN PRN Reason: Pain, Moderate (4-6) Last Admin: 11/12/20 04:25 Dose: 1 tab Documented by: ORACIO Aspirin (Aspirin Ec 81 Mg Tablet) 81 mg PO BID RUTH Last Admin: 11/11/20 21:13 Dose: 81 mg Documented by: INDIRA Bisacodyl (Bisacodyl 10 Mg Supp) 10 mg [place] DAILY PRN PRN Reason: Constipation Diphenhydramine HCl (Diphenhydramine 25 Mg Tablet) 25 mg PO Q4H PRN PRN Reason: Itching Duloxetine HCl (Duloxetine 30 Mg Capsule) 30 mg PO DAILY [facility] Ferrous Sulfate (Ferrous Sulfate 325 Mg Tablet) 325 mg PO Q2D@0900 [facility] Sodium Chloride (Normal Saline 0.9%) 1,000 mls @ 100 mls/hr IV CONT [facility] Last Admin: 11/12/20 05:48 Dose: 100 mls/hr Documented by: Infusion: 11/12/20 05:48 Dose: 100 mls/hr Documented by: Admin: 11/11/20 21:14 Dose: 100 mls/hr Documented by: INDIRA Melatonin (Melatonin 3 Mg Tablet) 9 mg PO BEDTIME [facility] Last Admin: 11/11/20 21:13 Dose: 9 mg Documented by: INDIRA Naloxone HCl (Naloxone 0.4 Mg/Ml Vial) 0.2 mg IV Q2MIN PRN PRN Reason: Opiate Reversal Ondansetron HCl (Ondansetron 4 Mg/2 Ml Inj) 4 mg IV Q6HR PRN PRN Reason: Nausea And Vomiting Pantoprazole Sodium (Pantoprazole 40 Mg Tablet) 40 mg PO 0700 [facility] Last Admin: 11/12/20 06:40 Dose: 40 mg Documented by: ORACIO Polyethylene Glycol (Polyethylene Glycol 3350 17 Gm Powd.Pack) 17 gm PO DAILY [facility] Sennosides (Sennosides 8.6 Mg Tablet) 17.2 mg PO BID [facility] Last Admin: 11/11/20 22:36 Dose: 17.2 mg Documented by: GPEREZ Sodium Biphosphate/Sodium Phosphate (Fleets Enema) 1 each WA PRN PRN PRN Reason: Constipation Discontinued Medications Docusate Sodium (Docusate 100 Mg Capsule) 100 mg PO BID [facility] Last Admin: 11/11/20 21:13 Dose: 100 mg Documented by: INDIRA Sodium Chloride (Normal Saline 0.9%) 1,000 mls @ 150 mls/hr IV CONT [facility] Last Infusion: 11/11/20 19:45 Dose: 0 mls/hr Documented by: Admin: 11/11/20 17:16 Dose: 150 mls/hr Documented by: PERCY Mineral Oil (Mineral Oil 1 Each Enema) 1 each WA NOW ONE Stop: 11/11/20 19:47 Last Admin: 11/11/20 21:16 Dose: Not Given Documented by: INDIRA Morphine Sulfate (Morphine 4 Mg/Ml Inj) 4 mg IV NOW ONE Stop: 11/11/20 18:34 Last Admin: 11/11/20 18:39 Dose: 4 mg Documented by: PERCY Sodium Biphosphate/Sodium Phosphate (Fleets Enema) 1 each WA NOW ONE Stop: 11/11/20 18:55 Last Admin: 11/11/20 19:48 Dose: Not Given Documented by: GISELE Reevaluation(s) Reevaluation #1: Rectal exam appreciated soft stool high in rectum which unable to break into pieces or to extricate. Enema ordered. Time: 19:13 Consultations Consultation #1: Dr. Mon consulted with CT finding and HPI, he reviewed the images and recommended enema for constipation but no SBO or other acute findings. Time: 18:45 Consultation #2: Dr. Louise consulted, he recommended monitor patient overnight for bradycardia and symptomatic bradycardia. No pacemaker is require the patient's heart rate decreased to 30's and he suggested different analgesics since oxycodone can cause bradycardia and prolonged QT. He recommended TSH check as well. Time: 19:05 Consultation #3: Hospitalist MOOK Landon kindly accepted patient's care under observation for symptomatic bradycardia to continue with cardiac monitoring overnight and plan to change pain management with other medication or decreasing frequency with oxycodone. Time: 19:40 Vital Signs Vital signs: Vital Signs - 8 hr 11/11/20 16:07 11/11/20 16:09 11/11/20 16:22 Temperature 97.7 F Pulse Rate 51 L 49 L Respiratory Rate 12 18 Blood Pressure 139/64 139/64 Pulse Oximetry 97 98 11/11/20 16:30 11/11/20 17:00 11/11/20 17:35 Temperature Pulse Rate 54 L 79 55 L Respiratory Rate 17 16 25 H Blood Pressure Pulse Oximetry 97 96 11/11/20 17:53 11/11/20 18:00 11/11/20 18:30 Temperature Pulse Rate 50 L 49 L 52 L Respiratory Rate 15 15 15 Blood Pressure 142/66 H 140/63 Pulse Oximetry 97 97 95 11/11/20 18:31 11/11/20 19:00 11/11/20 19:01 Temperature Pulse Rate 52 L 50 L 50 L Respiratory Rate 12 13 13 Blood Pressure 155/64 H 117/57 L Pulse Oximetry 95 94 94 11/11/20 19:30 11/11/20 19:31 Temperature Pulse Rate 50 L 50 L Respiratory Rate 14 13 Blood Pressure 125/60 Pulse Oximetry 97 96 <Da Jose, DO - Last Filed: 11/12/20 07:36> Orders Ordered: Acetaminophen (Acetaminophen 325 Mg Tablet) 650 mg PO Q4HR PRN PRN Reason: Fever/Mild Pain (1-3) Hydrocodone Bitart/Acetaminophen (Hydrocodone/Acet 5/325 Tablet) 1 tab PO Q4HR PRN PRN Reason: Pain, Moderate (4-6) Last Admin: 11/12/20 04:25 Dose: 1 tab Documented by: ORACIO Aspirin (Aspirin Ec 81 Mg Tablet) 81 mg PO BID [facility] Last Admin: 11/11/20 21:13 Dose: 81 mg Documented by: INDIRA Bisacodyl (Bisacodyl 10 Mg Supp) 10 mg [place] DAILY PRN PRN Reason: Constipation Diphenhydramine HCl (Diphenhydramine 25 Mg Tablet) 25 mg PO Q4H PRN PRN Reason: Itching Duloxetine HCl (Duloxetine 30 Mg Capsule) 30 mg PO DAILY [facility] Ferrous Sulfate (Ferrous Sulfate 325 Mg Tablet) 325 mg PO Q2D@0900 [facility] Sodium Chloride (Normal Saline 0.9%) 1,000 mls @ 100 mls/hr IV CONT [facility] Last Admin: 11/12/20 05:48 Dose: 100 mls/hr Documented by: Infusion: 11/12/20 05:48 Dose: 100 mls/hr Documented by: Admin: 11/11/20 21:14 Dose: 100 mls/hr Documented by: INDIRA Melatonin (Melatonin 3 Mg Tablet) 9 mg PO BEDTIME [facility] Last Admin: 11/11/20 21:13 Dose: 9 mg Documented by: INDIRA Naloxone HCl (Naloxone 0.4 Mg/Ml Vial) 0.2 mg IV Q2MIN PRN PRN Reason: Opiate Reversal Ondansetron HCl (Ondansetron 4 Mg/2 Ml Inj) 4 mg IV Q6HR PRN PRN Reason: Nausea And Vomiting Pantoprazole Sodium (Pantoprazole 40 Mg Tablet) 40 mg PO 0700 [facility] Last Admin: 11/12/20 06:40 Dose: 40 mg Documented by: ORACIO Polyethylene Glycol (Polyethylene Glycol 3350 17 Gm Powd.Pack) 17 gm PO DAILY [facility] Sennosides (Sennosides 8.6 Mg Tablet) 17.2 mg PO BID [facility] Last Admin: 11/11/20 22:36 Dose: 17.2 mg Documented by: GPEREZ Sodium Biphosphate/Sodium Phosphate (Fleets Enema) 1 each [place] PRN PRN PRN Reason: Constipation Discontinued Medications Docusate Sodium (Docusate 100 Mg Capsule) 100 mg PO BID [facility] Last Admin: 11/11/20 21:13 Dose: 100 mg Documented by: INDIRA Sodium Chloride (Normal Saline 0.9%) 1,000 mls @ 150 mls/hr IV CONT [facility] Last Infusion: 11/11/20 19:45 Dose: 0 mls/hr Documented by: Admin: 11/11/20 17:16 Dose: 150 mls/hr Documented by: PERCY Mineral Oil (Mineral Oil 1 Each Enema) 1 each WA NOW ONE Stop: 11/11/20 19:47 Last Admin: 11/11/20 21:16 Dose: Not Given Documented by: INDIRA Morphine Sulfate (Morphine 4 Mg/Ml Inj) 4 mg IV NOW ONE Stop: 11/11/20 18:34 Last Admin: 11/11/20 18:39 Dose: 4 mg Documented by: PERCY Sodium Biphosphate/Sodium Phosphate (Fleets Enema) 1 each WA NOW ONE Stop: 11/11/20 18:55 Last Admin: 11/11/20 19:48 Dose: Not Given Documented by: GISELE Vital Signs Vital signs: Vital Signs - 8 hr 11/11/20 16:07 11/11/20 16:09 11/11/20 16:22 Temperature 97.7 F Pulse Rate 51 L 49 L Respiratory Rate 12 18 Blood Pressure 139/64 139/64 Pulse Oximetry 97 98 11/11/20 16:30 11/11/20 17:00 11/11/20 17:35 Temperature Pulse Rate 54 L 79 55 L Respiratory Rate 17 16 25 H Blood Pressure Pulse Oximetry 97 96 11/11/20 17:53 11/11/20 18:00 11/11/20 18:30 Temperature Pulse Rate 50 L 49 L 52 L Respiratory Rate 15 15 15 Blood Pressure 142/66 H 140/63 Pulse Oximetry 97 97 95 11/11/20 18:31 11/11/20 19:00 11/11/20 19:01 Temperature Pulse Rate 52 L 50 L 50 L Respiratory Rate 12 13 13 Blood Pressure 155/64 H 117/57 L Pulse Oximetry 95 94 94 11/11/20 19:30 11/11/20 19:31 Temperature Pulse Rate 50 L 50 L Respiratory Rate 14 13 Blood Pressure 125/60 Pulse Oximetry 97 96 MDM - Syncope <Tye MichelleVIVEKP - Last Filed: 11/11/20 20:58> Differential Diagnosis Differential diagnosis: Likely vasovagal syncope Medical Records Attestation: I reviewed the patient's medical records. Lab Data Attestation: I reviewed the patient's lab results. Result diagrams: 11/12/20 06:30 11/12/20 06:30 Labs: Lab Results 11/11/20 11/11/20 11/11/20 Range/Units 17:19 17:19 17:19 WBC 9.6 (4.5-11.0) X10^3/uL RBC 3.36 L (4.0-5.2) X10^6/uL Hgb 10.5 L (12.0-16.0) g/dL Hct 30.8 L (36-46) % MCV 91.9 (80-100) fL MCH 31.3 (26-34) PG MCHC 34.0 (30-36) % RDW 13.0 (11.6-14.8) % Plt Count 293 (150-400) X10^3/uL Neut % (Auto) 70.7 (50-75) % Lymph % (Auto) 16.7 L (25-40) % [place] % (Auto) 8.4 (3-14) % Eos % (Auto) 3.6 (2-4) % Baso % (Auto) 0.6 (0-2) % Neut # (Auto) 6800 (0844-5063) /uL Lymph # (Auto) 1600 (1481-9729) /uL [place] # (Auto) 800 (0-900) /uL Eos # (Auto) 300 (0-450) /uL Baso # (Auto) 100 (0-100) /uL PT 11.8 (10.1-12.7) SECONDS INR 1.0 (0.9-1.3) APTT 36 (26.4-36.2) SECONDS Sodium 131 L (137-145) mmol/L Potassium 4.4 (3.4-5.1) mmol/L Chloride 97 L (98-107) mmol/L Carbon Dioxide 27 (22-32) mmol/L BUN 12 (7-17) mg/dL Creatinine 0.74 (0.52-1.04) mg/dL Estimated GFR > 60.0 (>60) mL/min BUN/Creatinine Ratio 16.2 (6-22) Glucose 93 (80-110) mg/dL Calcium 9.0 (8.4-10.2) mg/dL Magnesium (1.6-2.3) mg/dL Total Bilirubin 0.8 (0.2-1.3) mg/dL AST 36 (14-36) IU/L ALT 35 H (<35) IU/L Alkaline Phosphatase 123 (38-126) U/L Total Creatine Kinase 99 (30-135) U/L CK-MB (CK-2) TNP CK-MB (CK-2) Rel Index TNP Troponin I < 0.012 (0.01-0.034) ng/mL Total Protein 6.3 (6.3-8.2) g/dL Albumin 3.5 (3.5-5.0) g/dL Globulin 2.8 (1.7-4.1) g/dL Albumin/Globulin Ratio 1.3 (1.0-2.8) Lipase 15 L (23-300) U/L TSH (0.47-4.68) uIU/mL SARS-CoV-2 (PCR) (Negative) 11/11/20 11/11/20 11/11/20 Range/Units 17:19 17:19 18:42 WBC (4.5-11.0) X10^3/uL RBC (4.0-5.2) X10^6/uL Hgb (12.0-16.0) g/dL Hct (36-46) % MCV (80-100) fL MCH (26-34) PG MCHC (30-36) % RDW (11.6-14.8) % Plt Count (150-400) X10^3/uL Neut % (Auto) (50-75) % Lymph % (Auto) (25-40) % [place] % (Auto) (3-14) % Eos % (Auto) (2-4) % Baso % (Auto) (0-2) % Neut # (Auto) (3822-5667) /uL Lymph # (Auto) (3248-8091) /uL [place] # (Auto) (0-900) /uL Eos # (Auto) (0-450) /uL Baso # (Auto) (0-100) /uL PT (10.1-12.7) SECONDS INR (0.9-1.3) APTT (26.4-36.2) SECONDS Sodium (137-145) mmol/L Potassium (3.4-5.1) mmol/L Chloride (98-107) mmol/L Carbon Dioxide (22-32) mmol/L BUN (7-17) mg/dL Creatinine (0.52-1.04) mg/dL Estimated GFR (>60) mL/min BUN/Creatinine Ratio (6-22) Glucose (80-110) mg/dL Calcium (8.4-10.2) mg/dL Magnesium 1.8 (1.6-2.3) mg/dL Total Bilirubin (0.2-1.3) mg/dL AST (14-36) IU/L ALT (<35) IU/L Alkaline Phosphatase (38-126) U/L Total Creatine Kinase (30-135) U/L CK-MB (CK-2) CK-MB (CK-2) Rel Index Troponin I (0.01-0.034) ng/mL Total Protein (6.3-8.2) g/dL Albumin (3.5-5.0) g/dL Globulin (1.7-4.1) g/dL Albumin/Globulin Ratio (1.0-2.8) Lipase (23-300) U/L TSH 2.96 (0.47-4.68) uIU/mL SARS-CoV-2 (PCR) Negative (Negative) Urine Dip Bedside Urine Glucose Negative Bedside Urine Bilirubin - Negative Bedside Urine Ketone - Negative Urine Specific [place] 1.015 Bedside Urine Occult Blood - Negative Bedside Urine pH 6 Bedside Urine Protein - Negative Bedside Urine Urobilinogen - Negative Bedside Urine Nitrite - Negative Bedside Urine Leukocytes - Negative Esterase Imaging Data XR-AAS: Radiologist's Impression: [address] [id number] ReportSigned Patient: Janny Madrigal LMR#: [id number]: [id number]:[id number]/Sex: 80 / FDate of Service: 11/11/20Loc: EDAccession Number: [id number] Procedure: XR acute abdomen series Ordering Provider: Tye Michelle PROCEDURE: XR ACUTE ABDOMEN SERIES INDICATIONS: recent surgery, abd pain, constipation TECHNIQUE: One view chest and two views of the abdomen were acquired. COMPARISON: None. FINDINGS: Surgical changes and devices: None. Chest: Lungs are clear. Heart size is normal. No pleural effusions. No pneumoperitoneum. Abdomen: A few mildly air distended small bowel loops are noted in upper to mid abdomen with a few air-fluid levels. Significant fecal stasis throughout the colon is seen extending to the rectum. No suspicious calcifications. Visualized solid organ contours appear normal. Bones: No suspicious bony lesions. IMPRESSION: Finding is consistent with constipation and fecal impaction. No gross free air. No acute cardiopulmonary pathology. Dictated by: Trenton Santiago M.D. on 11/11/2020 at 17:45 Approved by: Trenton Santiago M.D. on 11/11/2020 at 17:46 CT-PE: Radiologist's Impression: [address] [id number] Scan ReportSigned Patient: Janny Madrigal LMR#: [id number]: [id number]/Sex: 80 / FDate of Service: 11/11/20Loc: EDAccession Number: [id number] Procedure: CT angio chest PE protocol Ordering Provider: Tye Michelle [employer] PROCEDURE: CT ANGIO CHEST PE PROTOCOL INDICATIONS: recent surgery, near syncope, abd pain, r/o PE and abd etiol TECHNIQUE: After the administration of intravenous contrast, 2 mm thick sections acquired from the pulmonary apices to the posterior costophrenic angles. 3-dimensional maximum intensity projection (MIP) coronal and sagittal reformats were then acquired through the thorax. For radiation dose reduction, the following was used: automated exposure control, adjustment of mA and/or kV according to patient size. COMPARISON: None. FINDINGS: Image quality: Excellent. Pulmonary arteries: Pulmonary arteries are normal in size, and demonstrate no intraluminal filling defects to suggest central pulmonary embolism. Lungs and pleura: There is [id number] centrilobular emphysema with scattered interstitial thickening throughout periphery of bilateral lung garcia suggestive of chronic interstitial lung parenchymal disease and pulmonary fibrosis. Linear scarring/atelectasis in posterior and lateral aspect of bilateral mid to lower lung zones are seen. No acute airspace opacity. No pleural effusions or pneumothorax. Central and peripheral airways are patent. Mediastinum: Heart size is normal, without pericardial effusion. Mildly prominent mediastinal lymph nodes are seen measures up to 1.1 cm in short axis diameter in right paratracheal space and up to 9 mm in short axis diameter in subcarinal space. Mild atherosclerotic calcifications are noted in coronary vessels and thoracic aorta. Thoracic aorta is normal in caliber and enhancement. Esophagus is normal in caliber, with a small hiatal hernia. Bones and chest wall: No suspicious bony lesions. No acute compression fracture or spondylolisthesis in thoracic spine. Mild degenerative disc disease throughout thoracic spine is seen. Thyroid gland is within normal limits No axillary or supraclavicular adenopathy. Abdomen: Visualized upper abdominal solid organs appear normal in the early arterial phase of enhancement. IMPRESSION: 1. No evidence of pulmonary embolism. No thoracic aortic aneurysm or dissection. 2. Ynef-wi-wfgxhjsw centrilobular emphysema and chronic interstitial lung disease with suggestion of interstitial pulmonary fibrosis. Scarring/atelectasis also noted in posterior lateral periphery of bilateral mid to lower lung zones. No acute airspace opacity. No pleural effusion or pneumothorax. Airway is patent. 3. Mildly prominent mediastinal lymph nodes and may represent mild reactive inflammatory lymphadenopathy. 4. Small hiatal hernia. Dictated by: Trenton Santiago M.D. on 11/11/2020 at 18:25 Approved by: Trenton Santiago M.D. on 11/11/2020 at 18:30 CT-Abd/pelvis: Radiologist's Impression: [address] [id number] Scan ReportSigned Patient: Janny Madrigal LMR#: [id number]: [id number]:[id number]/Sex: 80 / FDate of Service: 11/11/20Loc: EDAccession Number: [id number] Procedure: CT abdomen pelvis w con Ordering Provider: Tye Michelle PROCEDURE: CT ABDOMEN PELVIS W CON INDICATIONS: RECENT SURGERY, SYNCOPE, ABDOMINAL PAIN TECHNIQUE: After the administration of intravenous contrast, 5 mm thick sections acquired from the diaphragm to the symphysis. 5 mm coronal and sagittal reformats were acquired. For radiation dose reduction, the following was used: automated exposure control, adjustment of mA and/or kV according to patient size. COMPARISON: None. FINDINGS: Image quality: Excellent. ABDOMEN: Lung bases: Mild bibasilar linear scarring/atelectasis are seen. Heart size is normal. Solid organs: Liver is normal in size and enhancement. Gallbladder is surgically absent. Mild intrahepatic biliary ductal dilatation and common bile duct dilatation is seen with distal common bile duct measures up to 11 mm in diameter . Pancreas enhances normally. Spleen is normal in size and enhancement. No adrenal nodules. Kidneys demonstrate normal size and enhancement, without hydronephrosis. Peritoneum and bowel: Bowel loops demonstrate normal wall thickness and caliber. No free fluid or air. Moderate fecal stasis in the colon is seen with fecal matter distending rectum. Sigmoid diverticulosis is seen, no CT evidence of acute diverticulitis. No abscess collection. Nodes and vessels: No retroperitoneal or mesenteric adenopathy by size criteria. Aorta and inferior vena cava are normal in size. Miscellaneous: No ventral hernias. PELVIS: Genitourinary: Bladder wall thickness is normal. Miscellaneous: No inguinal hernias or adenopathy. Bones: No suspicious bony lesions. No vertebral body compression fractures. IMPRESSION: 1. Suggestion of mild constipation and moderate fecal impaction in the rectum. No abnormal bowel wall thickening. No free fluid or free air. No abscess collection. 2. Prior cholecystectomy . Mild intrahepatic biliary ductal dilatation and prominence of common bile duct most likely represent postsurgical dilatation of biliary ducts. Dictated by: Trenton Santiago M.D. on 11/11/2020 at 18:30 Approved by: Trenton Santiago M.D. on 11/11/2020 at 18:33 ECG Data Attestation: I personally reviewed and interpreted this ECG as follows: Prior ECG tracings: available for review Interpretation: Sinus bradycardia with first-degree AV block and right bundle branch block rate at 50. Left axis deviation WA interval 212, QRS duration 122, QT/QTc 546/[address] changes Septal infarct age undetermined Previous EKG on 11/03/2020-sinus rhythm with first-degree AV block and right bundle-branch block rate at 71. MDM Narrative Medical decision making narrative: This is a 80 year female who has past medical history significant for hiatal hernia, constipation, depression, right knee total replacement 4 days ago presents to ED from [facility] via air ambulance with chief of constipation for 6 days and near-syncope with lightheadedness, dizziness, weakness while she was ambulating to bathroom this afternoon. According to air medics, noted to have bradycardia. Patient has no known bradycardia except a couple of times during hospitalization according to granddaughter. Patient denies short of breath but discomfort in chest and abdomen with nausea. EKG shows sinus bradycardia rate in 50 with first-degree AV block, right bundle-branch block, prolonged QTC of 497. Abdomen was tender to palpate in bilateral lower and epigastric region. Concerned for bowel obstruction given patient has a history of hysterectomy, AAS ordered and cardiac work up initiated. X-ray test shows a few mildly air distended small bowel loops in upper and mid abdomen with a few air-fluid level and indications for constipation and fecal impaction. Heart score 5 and Well's criteria for PE score 4.5 and PERC score 2 with recent surgery and age. Preceded with PE CT test and abdomen/pelvis CT test which were negative for acute findings. Consulted Dr. Louise (crozer operator) and he recommended change pain management from oxycodone the this could cause prolonged QT and bradycardia. CT abdomen/pelvis shows mild constipation and moderate fecal impaction at the rectum. Rectal exam appreciated soft stool in uppper rectum which was unable to removed by digitally. No indications for bowel obstructions. Cardiac enzymes were negative. Anemic with H/H of 10.5/30.8 which is the patient's post-op baseline. Previous H/H preoperatively 14.2/41.5. No leukocytosis. Normal platelet count and coag results. Mild hyponatremia of 131 and chloride of 97. Normal kidney function and liver function test. Normal lipase. Normal magnesium of 1.8. Normal TSH. Patient's pain managed with IV morphine while in ED. patient received gentle IV hydration with normal saline in ED. Fleet enema ordered in ED. Discussed patient's case with hospitalist MOOK Landon and she kindly accepted the patient's care. <Da Gracia, DO - Last Filed: 11/12/20 07:36> Lab Data Labs: Lab Results 11/11/20 11/11/20 11/11/20 Range/Units 17:19 17:19 17:19 WBC 9.6 (4.5-11.0) X10^3/uL RBC 3.36 L (4.0-5.2) X10^6/uL Hgb 10.5 L (12.0-16.0) g/dL Hct 30.8 L (36-46) % MCV 91.9 (80-100) fL MCH 31.3 (26-34) PG MCHC 34.0 (30-36) % RDW 13.0 (11.6-14.8) % Plt Count 293 (150-400) X10^3/uL Neut % (Auto) 70.7 (50-75) % Lymph % (Auto) 16.7 L (25-40) % [place] % (Auto) 8.4 (3-14) % Eos % (Auto) 3.6 (2-4) % Baso % (Auto) 0.6 (0-2) % Neut # (Auto) 6800 (2012-3587) /uL Lymph # (Auto) 1600 (9804-8143) /uL [place] # (Auto) 800 (0-900) /uL Eos # (Auto) 300 (0-450) /uL Baso # (Auto) 100 (0-100) /uL PT 11.8 (10.1-12.7) SECONDS INR 1.0 (0.9-1.3) APTT 36 (26.4-36.2) SECONDS Sodium 131 L (137-145) mmol/L Potassium 4.4 (3.4-5.1) mmol/L Chloride 97 L (98-107) mmol/L Carbon Dioxide 27 (22-32) mmol/L BUN 12 (7-17) mg/dL Creatinine 0.74 (0.52-1.04) mg/dL Estimated GFR > 60.0 (>60) mL/min BUN/Creatinine Ratio 16.2 (6-22) Glucose 93 (80-110) mg/dL Calcium 9.0 (8.4-10.2) mg/dL Magnesium (1.6-2.3) mg/dL Total Bilirubin 0.8 (0.2-1.3) mg/dL AST 36 (14-36) IU/L ALT 35 H (<35) IU/L Alkaline Phosphatase 123 (38-126) U/L Total Creatine Kinase 99 (30-135) U/L CK-MB (CK-2) TNP CK-MB (CK-2) Rel Index TNP Troponin I < 0.012 (0.01-0.034) ng/mL Total Protein 6.3 (6.3-8.2) g/dL Albumin 3.5 (3.5-5.0) g/dL Globulin 2.8 (1.7-4.1) g/dL Albumin/Globulin Ratio 1.3 (1.0-2.8) Lipase 15 L (23-300) U/L TSH (0.47-4.68) uIU/mL SARS-CoV-2 (PCR) (Negative) 11/11/20 11/11/20 11/11/20 Range/Units 17:19 17:19 18:42 WBC (4.5-11.0) X10^3/uL RBC (4.0-5.2) X10^6/uL Hgb (12.0-16.0) g/dL Hct (36-46) % MCV (80-100) fL MCH (26-34) PG MCHC (30-36) % RDW (11.6-14.8) % Plt Count (150-400) X10^3/uL Neut % (Auto) (50-75) % Lymph % (Auto) (25-40) % [place] % (Auto) (3-14) % Eos % (Auto) (2-4) % Baso % (Auto) (0-2) % Neut # (Auto) (3931-3766) /uL Lymph # (Auto) (3497-0709) /uL [place] # (Auto) (0-900) /uL Eos # (Auto) (0-450) /uL Baso # (Auto) (0-100) /uL PT (10.1-12.7) SECONDS INR (0.9-1.3) APTT (26.4-36.2) SECONDS Sodium (137-145) mmol/L Potassium (3.4-5.1) mmol/L Chloride (98-107) mmol/L Carbon Dioxide (22-32) mmol/L BUN (7-17) mg/dL Creatinine (0.52-1.04) mg/dL Estimated GFR (>60) mL/min BUN/Creatinine Ratio (6-22) Glucose (80-110) mg/dL Calcium (8.4-10.2) mg/dL Magnesium 1.8 (1.6-2.3) mg/dL Total Bilirubin (0.2-1.3) mg/dL AST (14-36) IU/L ALT (<35) IU/L Alkaline Phosphatase (38-126) U/L Total Creatine Kinase (30-135) U/L CK-MB (CK-2) CK-MB (CK-2) Rel Index Troponin I (0.01-0.034) ng/mL Total Protein (6.3-8.2) g/dL Albumin (3.5-5.0) g/dL Globulin (1.7-4.1) g/dL Albumin/Globulin Ratio (1.0-2.8) Lipase (23-300) U/L TSH 2.96 (0.47-4.68) uIU/mL SARS-CoV-2 (PCR) Negative (Negative) Urine Dip Bedside Urine Glucose Negative Bedside Urine Bilirubin - Negative Bedside Urine Ketone - Negative Urine Specific [place] 1.015 Bedside Urine Occult Blood - Negative Bedside Urine pH 6 Bedside Urine Protein - Negative Bedside Urine Urobilinogen - Negative Bedside Urine Nitrite - Negative Bedside Urine Leukocytes - Negative Esterase Discharge Plan Departure Patient Disposition: Admitted as Observation Clinical Impression: Symptomatic bradycardia, Constipation due to opioid therapy Admit Date/Time: 11/11/20 19:40 Admit Provider: Eusebia Landon <Da Garcia, DO - Last Filed: 11/12/20 07:36> Cosign ED Attending Cosignature Attestation: Dr Garcia Co-Sign Statement: I was available for consultation during this patient's emergency department visit. This chart is signed by myself for administrative purposes only. I did not have direct contact with this patient during this visit. They were seen independently by the APC.
[2020-11-11 17:25] LABS: Add Manual Diff / Slide Review NO; Basophils Absolute Auto 100 /uL (0-100); Basophils Percent Auto 0.6 % (0-2); Eosinophils Absolute Auto 300 /uL (0-450); Eosinophils Percent Auto 3.6 % (2-4); Hematocrit 30.8 % (36-46); Hemoglobin 10.5 g/dL (12.0-16.0); Lymphocytes Absolute Auto 1600 /uL (1100-4500); Lymphocytes Percent Auto 16.7 % (25-40); Mean Corpuscular Hemoglobin 31.3 PG (26-34); Mean Corpuscular Volume 91.9 fL (80-100); Monocytes Absolute Auto 800 /uL (0-900); Monocytes Percent Auto 8.4 % (3-14); Neutrophils Absolute Auto 6800 /uL (1500-7000); Neutrophils Percent Auto 70.7 % (50-75); Platelet Count 293 X10^3/uL (150-400); Red Blood Cell Count 3.36 X10^6/uL (4.0-5.2); White Blood Cell Count 9.6 X10^3/uL (4.5-11.0)
[2020-11-11 17:35] LABS: Prothrombin Time 11.8 SECONDS (10.1-12.7)
[2020-11-11 17:38] LABS: PTT Partial Thromboplastin Tim 36 SECONDS (26.4-36.2)
[2020-11-11 17:40] LABS: Alanine Aminotransferase 35 IU/L (<35); Albumin 3.5 g/dL (3.5-5.0); Albumin Globulin Ratio 1.3 (1.0-2.8); Alkaline Phosphatase 123 U/L (38-126); Aspartate Aminotransferase 36 IU/L (14-36); BUN Creatinine Ratio 16.2 (6-22); Bilirubin Total 0.8 mg/dL (0.2-1.3); Blood Urea Nitrogen 12 mg/dL (7-17); Carbon Dioxide 27 mmol/L (22-32); Chloride 97 mmol/L (98-107); Creatine Kinase 99 U/L (30-135); Estimated Glomerular Filt Rate > 60.0 mL/min (>60); Globulin 2.8 g/dL (1.7-4.1); Glucose 93 mg/dL (80-110); HEMOLYSIS < 15 (0-50); Lipase 15 U/L (23-300); Potassium 4.4 mmol/L (3.4-5.1); Sodium 131 mmol/L (137-145); Total Protein 6.3 g/dL (6.3-8.2)
[2020-11-11 17:51] LABS: Troponin I < 0.012 ng/mL (0.01-0.034)
--- NOTE | 2020-11-11 17:51 | DI.CT.S_ITS ---
PROCEDURE: CT ANGIO CHEST PE PROTOCOL INDICATIONS: recent surgery, near syncope, abd pain, r/o PE and abd etiol TECHNIQUE: After the administration of intravenous contrast, 2 mm thick sections acquired from the pulmonary apices to the posterior costophrenic angles. 3-dimensional maximum intensity projection (MIP) coronal and sagittal reformats were then acquired through the thorax. For radiation dose reduction, the following was used: automated exposure control, adjustment of mA and/or kV according to patient size. COMPARISON: None. FINDINGS: Image quality: Excellent. Pulmonary arteries: Pulmonary arteries are normal in size, and demonstrate no intraluminal filling defects to suggest central pulmonary embolism. Lungs and pleura: There is [id number] centrilobular emphysema with scattered interstitial thickening throughout periphery of bilateral lung garcia suggestive of chronic interstitial lung parenchymal disease and pulmonary fibrosis. Linear scarring/atelectasis in posterior and lateral aspect of bilateral mid to lower lung zones are seen. No acute airspace opacity. No pleural effusions or pneumothorax. Central and peripheral airways are patent. Mediastinum: Heart size is normal, without pericardial effusion. Mildly prominent mediastinal lymph nodes are seen measures up to 1.1 cm in short axis diameter in right paratracheal space and up to 9 mm in short axis diameter in subcarinal space. Mild atherosclerotic calcifications are noted in coronary vessels and thoracic aorta. Thoracic aorta is normal in caliber and enhancement. Esophagus is normal in caliber, with a small hiatal hernia. Bones and chest wall: No suspicious bony lesions. No acute compression fracture or spondylolisthesis in thoracic spine. Mild degenerative disc disease throughout thoracic spine is seen. Thyroid gland is within normal limits No axillary or supraclavicular adenopathy. Abdomen: Visualized upper abdominal solid organs appear normal in the early arterial phase of enhancement. IMPRESSION: 1. No evidence of pulmonary embolism. No thoracic aortic aneurysm or dissection. 2. [id number] centrilobular emphysema and chronic interstitial lung disease with suggestion of interstitial pulmonary fibrosis. Scarring/atelectasis also noted in posterior lateral periphery of bilateral mid to lower lung zones. No acute airspace opacity. No pleural effusion or pneumothorax. Airway is patent. 3. Mildly prominent mediastinal lymph nodes and may represent mild reactive inflammatory lymphadenopathy. 4. Small hiatal hernia. Dictated by: Trenton Santiago M.D. on 11/11/2020 at 18:25 Approved by: Trenton Santiago M.D. on 11/11/2020 at 18:30
[2020-11-11] MEDS: MORPHINE 4 MG/ML INJ IV (18:39)
[2020-11-11 19:08] LABS: COVID19 -Nasal RAPID Negative (Negative)
[2020-11-11 19:31] LABS: Magnesium 1.8 mg/dL (1.6-2.3)
[2020-11-11 20:02] LABS: TSH w/ Reflex to FT4 2.96 uIU/mL (0.47-4.68)
--- NOTE | 2020-11-11 20:15 | PC.NURSE ---
Admit note: Received patient from ED, awake, alert, and oriented. Up OOB to BSC with 1 PA FWW to void upon arrival. Aquacel to right knee with Acewrap. Large bruise to inner mid right thigh, healing. IVF started on arrival and placed on Tele. Patient states feeling mild dizziness at rest and worse with movement. Oriented to room, environment, and plan of care. High fall risk precautions initiated. Call light within reach.
[2020-11-11] MEDS: DOCUSATE 100 MG CAPSULE PO (21:13)
[2020-11-11] MEDS: ASPIRIN EC 81 MG TABLET PO (21:13)
[2020-11-11] MEDS: MELATONIN 3 MG TABLET 9 MG PO (21:13)
[2020-11-11] MEDS: SODIUM CHLORIDE 0.9% 1,000 ML 100 ML IV (21:14)
--- NOTE | 2020-11-11 21:36 | PM.HP.1 ---
History of Present Illness History of Present Illness Date Patient Seen: 11/11/20 Time Patient Seen: 20:30 Chief complaint: total knee replacement-no BM for days Narrative: Janny Madrigal is a 80 y.o. female who just underwent left sided total knee replacement on this past SaturdayNovember 07. She lives over on [address] [place] [address] and was at home and attempting to ambulate with her walker and became quite lightheaded. She also has not had a bowel movement since being discharged from the hospital this past Saturday. She takes a stool softener as well as oxycodone q.4 hours, Tylenol, and Motrin. She states she has been a little bit nauseous and not really eating much. She denies abdominal pain, dysuria, chest pain or shortness of breath. She has a stated history of nocturnal urticaria. Emergency department requested that we place her under observation for symptomatic bradycardia as her heart rate has been in the 40s and 50s. Patient is afebrile, blood pressure 130/57 heart rate is 52, respiratory rate 17, oxygen saturation 96% on room air she weighs 69.4 kg with a BMI of 28. She is mildly anemic at 10.5 and 30.8, mildly hyponatremic at 1:31 a.m. with a chloride of 97, COVID-19 PCR is negative. Abdominal KUB indicated fecal obstipation, CT angio of the chest ruled out PE. Nilo, her granddaughter is her caregiver and informed me she has a diagnosis of depression, memory impairment since taking pain medications, had previously been taking gabapentin for trigeminal neuralgia, but discontinued it earlier this year. Patient History Medical History (Updated 11/11/20 @ 22:23 by CHARLES Mane) Constipation Depression Hearing loss in left ear Heartburn Insomnia Primary osteoarthritis of right knee Trigeminal neuralgia of left side of face (~11/2019) Surgical History (Updated 11/11/20 @ 22:29 by CHARLES Mane) H/O bursectomy H/O repair of rotator cuff History of cholecystectomy History of hysterectomy History of knee surgery Family & Social History Family History (Updated 11/11/20 @ 22:03 by CHARLES Mane) Mother Old age Father Myocardial infarction Social History: household members family Safety & Behavioral: Feels Safe in Current Yes Environment Been Physically Hurt or No Threatened By a Person Tobacco & Substance use: Smoking Status Former smoker quit 1979 alcohol intake quit 2018 Substance Use Type does not use Meds Home Medications and Allergies Home Medications Medication Instructions Recorded Confirmed Type docusate sodium [Stool Softener] 100 mg PO DAILY 11/02/20 11/11/20 History duloxetine 30 mg PO DAILY 11/02/20 11/11/20 History ferrous sulfate [Iron (ferrous 325 mg PO Q OTHER DAY 11/02/20 11/11/20 History sulfate)] hydroxyzine HCl 25 - 50 mg PO Q4H PRN 11/02/20 11/11/20 History melatonin 10 mg PO BEDTIME 11/02/20 11/11/20 History omeprazole 40 mg PO BID 11/02/20 11/11/20 History polyethylene glycol 3350 [Miralax] 17 g PO DAILY 11/02/20 11/11/20 History aspirin 81 mg PO BID #60 tab 11/08/20 11/11/20 Rx oxycodone 5 mg PO Q4-5H PRN #60 tab 11/08/20 11/11/20 Rx Allergies Allergy/AdvReac Type Severity Reaction Status Date / Time Phenothiazines Allergy Severe THROAT Verified 11/07/20 12:09 [PHENOTHIAZINES] SWELLS SHUT codeine [CODEINE] Allergy Intermediate ITCHING-OK Verified 11/07/20 12:09 if takes benadryl with it latex Allergy Facial Verified 11/07/20 12:09 swelling Review of Systems Review of Systems ROS: Yes All systems reviewed with the patient and are negative except as otherwise documented Exam Vital Signs (past 8 hours): - 11/11/20 16:07 11/11/20 16:09 11/11/20 16:22 Temperature 97.7 F Pulse Rate 51 L 49 L Respiratory Rate 12 18 Blood Pressure 139/64 139/64 Pulse Oximetry 97 98 11/11/20 16:30 11/11/20 17:00 11/11/20 17:35 Temperature Pulse Rate 54 L 79 55 L Respiratory Rate 17 16 25 H Blood Pressure Pulse Oximetry 97 96 11/11/20 17:53 11/11/20 18:00 11/11/20 18:30 Temperature Pulse Rate 50 L 49 L 52 L Respiratory Rate 15 15 15 Blood Pressure 142/66 H 140/63 Pulse Oximetry 97 97 95 11/11/20 18:31 11/11/20 19:00 11/11/20 19:01 Temperature Pulse Rate 52 L 50 L 50 L Respiratory Rate 12 13 13 Blood Pressure 155/64 H 117/57 L Pulse Oximetry 95 94 94 11/11/20 19:30 11/11/20 19:31 11/11/20 20:46 Temperature 98.1 F Pulse Rate 50 L 50 L 52 L Respiratory Rate 14 13 17 Blood Pressure 125/60 130/57 L Pulse Oximetry 97 96 96 Oxygen Delivery Method Room Air Oxygen Flow Rate 0 Narrative Exam Narrative: Gen: Mildly confused, well-developed 80 y.o. female, lethargic HEENT: normocephalic, atraumatic, conjunctiva clear, sclera non-icteric, oral mucosa dry Neck: supple, full ROM, no JVD, trachea is midline Resp: Lungs CTA, non-labored breathing CV: RRR, no murmur or rubs Abd: soft, non-tender, Hypoactive BTs Skin: no lesions or rashes, dry and intact Neuro: Has difficulty recalling dates, oriented X 2 w/no focal deficits. Soft spoken Speech. Extremities: moves all 4 extremities, is ambulatory, negative Shelly?s sign Psyche: normal mood and affect. Objective Labs Result Diagrams: 11/11/20 17:19 11/11/20 17:19 Labs: Laboratory Results - last 24 hr 11/11/20 11/11/20 11/11/20 17:19 17:19 17:19 WBC 9.6 RBC 3.36 L Hgb 10.5 L Hct 30.8 L MCV 91.9 MCH 31.3 MCHC 34.0 RDW 13.0 Plt Count 293 Neut % (Auto) 70.7 Lymph % (Auto) 16.7 L [place] % (Auto) 8.4 Eos % (Auto) 3.6 Baso % (Auto) 0.6 Neut # (Auto) 6800 Lymph # (Auto) 1600 [place] # (Auto) 800 Eos # (Auto) 300 Baso # (Auto) 100 PT 11.8 INR 1.0 APTT 36 Sodium 131 L Potassium 4.4 Chloride 97 L Carbon Dioxide 27 BUN 12 Creatinine 0.74 Estimated GFR > 60.0 BUN/Creatinine Ratio 16.2 Glucose 93 Calcium 9.0 Magnesium Total Bilirubin 0.8 AST 36 ALT 35 H Alkaline Phosphatase 123 Total Creatine Kinase 99 CK-MB (CK-2) TNP CK-MB (CK-2) Rel Index TNP Troponin I < 0.012 Total Protein 6.3 Albumin 3.5 Globulin 2.8 Albumin/Globulin Ratio 1.3 Lipase 15 L TSH SARS-CoV-2 (PCR) 11/11/20 11/11/20 11/11/20 17:19 17:19 18:42 WBC RBC Hgb Hct MCV MCH MCHC RDW Plt Count Neut % (Auto) Lymph % (Auto) [place] % (Auto) Eos % (Auto) Baso % (Auto) Neut # (Auto) Lymph # (Auto) [place] # (Auto) Eos # (Auto) Baso # (Auto) PT INR APTT Sodium Potassium Chloride Carbon Dioxide BUN Creatinine Estimated GFR BUN/Creatinine Ratio Glucose Calcium Magnesium 1.8 Total Bilirubin AST ALT Alkaline Phosphatase Total Creatine Kinase CK-MB (CK-2) CK-MB (CK-2) Rel Index Troponin I Total Protein Albumin Globulin Albumin/Globulin Ratio Lipase TSH 2.96 SARS-CoV-2 (PCR) Negative Assessment & Plan Assessment & Plan narrative: Janny Madrigal will be placed into observation to treat opioid associated constipation and symptomatic bradycardia. Symptomatic bradycardia, acute and present on admission - Cardiac telemetry - Try to tapor down doses of opioid narcotics for pain relief - Oxycodone to be discontinue in favor or hydrocodone/apap for pain control Right total knee replacement POD #5 - She is anticoagulted on ASA 81 mg po bid - PT is ordered Opioid induced constipation - Mineral oil fleets enema prn - start scheduled Senna - miralax prn Depression - Continue home dose of duloxatine 30 mg po daily - Continue melatonin 9 mg po at bedtime for sleep VTE prophylaxis: Wells risk score: 1.5 she was recently discharged on Asprin 81 mg bid and will continue this and bilateral SCDs Consults: none Patient is observation status as her stay is not likely to exceed 2 midnights. FEN: NS at 100 ml/hour, General diet, BMP and magnesium in the am. Dispo: eventual discharge to home Code Status: Full as discussed with patient and Nilo, her caregiver and granddaughter Scores Wells' Criteria for PE Clinical signs and symptoms of DVT: No PE is #1 Dx or equally likely: No Heart rate > 100: No Immobilization at least 3 days or surg in previous 4 weeks: Yes History of PE or DVT: No Hemoptysis: No Malignancy w/Treatment within 6 months or palliative: No Wells' PE Score total: 1.5 Quality MIPS - Admit Advanced Care Plan / Current Medications Measures: #47 ? Advanced Care Plan Clinician documentation instruction: document at admission. X I confirmed that the patient's Advance Care Plan is present, code status is documented, or surrogate decision maker is listed in the patient?s medical record. If Yes, Stop Here [] The patient?s Advance Care plan is not present because: (select) [MIPS PERFORMANCE EXCEPTION/EXCLUSION] [] I confirmed today that the patient does not wish or was not able to name a surrogate decision maker or provide an Advance Care Plan. [] Hospice care is currently being provided or has been provided this calendar year [] I did NOT confirm today the presence of an Advance Care Plan or surrogate decision maker documented within the patient's medical record. [DOES NOT SATISFY MIPS PERFORMANCE] #130 - Documentation of Current Medications in the Medical Record Clinician documentation instruction: use macro the first time you see a patient. X I have utilized all available immediate resources to obtain, update, or review the patient?s current medications. If Yes, Stop Here [] The patient is not eligible for medication reconciliation; the patient is in an emergent medical situation where delaying treatment would jeopardize the patient?s health. [MIPS PERFORMANCE EXCEPTION/EXCLUSION] [] I did NOT confirm, update or review the patient's current list of medications today. [DOES NOT SATISFY MIPS PERFORMANCE] MIPS - CL Central Venous Catheter Placement Measure: #76 ? Prevention of Central Venous Catheter (CVC) ? Related Bloodstream Infection Clinician documentation instruction: use macro every time you place a central line. [] All elements of Maximal Sterile Barrier Technique, including hand hygiene, skin prep, and sterile ultrasound technique (if used) were followed. [SATISFIES MIPS PERFORMANCE] If Yes, Stop Here [] If ?No?, the medical reason all elements were NOT used for medical reason [] (ex. emergent condition). [] Maximal Sterile Barrier Technique was not followed, no reason provided [DOES NOT SATISFY MIPS PERFORMANCE] MIPS - DC Heart Failure Measures: #5 - Heart Failure (HF): Angiotensin-Converting Enzyme (BASSAM) Inhibitor or Angiotensin Receptor Matias (ARB) Therapy for Left Ventricular Systolic Dysfunction (LVSD) and #8 - Heart Failure (HF): Beta-Matias Therapy for Left Ventricular Systolic Dysfunction (LVSD) Clinician documentation instruction: use macro at every CHF discharge. [] The patient has current or prior documentation of left ventricular ejection fraction (LVEF) less than 40%, or moderate or severely depressed left ventricular systolic function. Answer both: [SATISFIES MIPS PERFORMANCE] [] The patient was prescribed or already taking an Angiotensin-Converting Enzyme (BASSAM) Inhibitor, or Angiotensin Receptor Matias (ARB). [] The patient was prescribed or already taking a beta-matias. If Yes to Both, Stop Here [] Patient not prescribed/taking: [MIPS PERFORMANCE EXCEPTION/EXCLUSION] [] BASSAM or ARB for medical/patient/system reason(s) including [] (ex. allergy, intolerance, contraindication) [] Beta-matias for medical/patient/system reason(s) including [] (ex. allergy, intolerance, contraindication) [] Patient not prescribed/taking: [DOES NOT SATISFY MIPS PERFORMANCE] [] BASSAM or ARB, no reason given [] Beta-matisa, no reason given
[2020-11-11] MEDS: SENNOSIDES 8.6 MG TABLET 17.2 MG PO (22:36)
[2020-11-12] VITALS (7 sets, daily range): BP systolic 124–146; BP diastolic 42–98; PULSE 50–61; RESP 16–17; TEMP 36.4–37.1; O2SAT 93–97
[2020-11-12] MEDS: HYDROCODONE/ACET 5/325 TABLET 1 TAB PO ×4 (04:25→21:00)
[2020-11-12] MEDS: SODIUM CHLORIDE 0.9% 1,000 ML 100 ML IV (05:48)
[2020-11-12] MEDS: PANTOPRAZOLE 40 MG TABLET PO (06:40)
[2020-11-12 06:44] LABS: Add Manual Diff / Slide Review NO; Basophils Absolute Auto 100 /uL (0-100); Basophils Percent Auto 0.8 % (0-2); Eosinophils Absolute Auto 600 /uL (0-450); Eosinophils Percent Auto 6.4 % (2-4); Hematocrit 28.1 % (36-46); Hemoglobin 9.7 g/dL (12.0-16.0); Lymphocytes Absolute Auto 2300 /uL (1100-4500); Lymphocytes Percent Auto 25.8 % (25-40); Mean Corpuscular HGB Conc 34.5 % (30-36); Mean Corpuscular Hemoglobin 31.8 PG (26-34); Mean Corpuscular Volume 92.1 fL (80-100); Monocytes Absolute Auto 1000 /uL (0-900); Monocytes Percent Auto 10.9 % (3-14); Neutrophils Absolute Auto 4900 /uL (1500-7000); Neutrophils Percent Auto 56.1 % (50-75); Platelet Count 275 X10^3/uL (150-400); Red Blood Cell Count 3.04 X10^6/uL (4.0-5.2); Red Cell Distribution Width 13.3 % (11.6-14.8); White Blood Cell Count 8.8 X10^3/uL (4.5-11.0)
[2020-11-12 07:00] LABS: BUN Creatinine Ratio 14.5 (6-22); Blood Urea Nitrogen 9 mg/dL (7-17); Calcium 8.6 mg/dL (8.4-10.2); Carbon Dioxide 22 mmol/L (22-32); Chloride 102 mmol/L (98-107); Estimated Glomerular Filt Rate > 60.0 mL/min (>60); Glucose 98 mg/dL (80-110); HEMOLYSIS < 15 (0-50); Magnesium 1.8 mg/dL (1.6-2.3); Potassium 4.2 mmol/L (3.4-5.1); Sodium 131 mmol/L (137-145)
[2020-11-12] MEDS: SENNOSIDES 8.6 MG TABLET 17.2 MG PO ×2 (08:28→21:00)
[2020-11-12] MEDS: ASPIRIN EC 81 MG TABLET PO ×2 (08:28→21:00)
[2020-11-12] MEDS: DULOXETINE 30 MG CAPSULE PO (08:29)
[2020-11-12] MEDS: polyethylene glycoL 3350 17 GM POWD.PACK PO (08:29)
--- NOTE | 2020-11-12 09:15 | DI.ECHO.S_ITS ---
[facility]---------+ [facility] +---------+ : : [address] : [place] : : : : [id number] : : : : Phone: [phone]+ Echocardiogram Report + + :Name: SHEKHAR ALBA Study Date: 11/13/2020 Height: 62 in : :[facility] ReadingLocation: Weight: 153 lb : : Gender: Female BSA: 1.7 m2 : :: 1940 Age: 80 yrs BP: 106/43 mmHg: :Reason For Study: SYSTOLIC EJECTION MURMUR, BRADYCARDIA : :Ordering Physician: TREVON, : :INDIGO Performed By: Galina Carbone : :Referring: INDIGO LESTER MD : + + Interpretation Summary 1) Normal left ventricular thickness, size, wall motion, and systolic function (EF 60-65%). 2) Normal right ventricular size and function. 3) There is mild aortic stenosis (valve area 1.8cm2, mean gradient 7mmHg, severity ratio 0.64). 4) No prior Echo available for comparison. Procedure: A two-dimensional transthoracic echocardiogram with color flow and Doppler was performed. The study quality was technically adequate. There is no prior echocardiogram noted for this patient. The patient was in sinus bradycardia with heart rates between 49-57 bpm during the exam. Left Ventricle: The left ventricle is normal in size and wall thickness. The ejection fraction is estimated to be 60-65%. Left ventricular systolic function appears normal without focal wall motion abnormalities. Right Ventricle: The right ventricle is normal in size and function. Atria: The left atrium is moderately dilated. Right atrial size is normal. There is no Doppler evidence for an interatrial shunt. Mitral Valve: The mitral valve leaflets appear mildly thickened, but open well. There is mild mitral annular calcification. There is mild mitral regurgitation. Aortic Valve: The aortic valve is trileaflet. The aortic valve opens well. The aortic valve is slightly calcified. There is mild aortic valve sclerosis. There is mild aortic stenosis. There is trace aortic regurgitation. Tricuspid Valve: The tricuspid valve is normal in structure and function. There is mild tricuspid regurgitation. Pulmonary artery pressures cannot be estimated because of the lack of a measurable TR jet velocity but the IVC suggests a CVP of around 3 mmHg. Pulmonic Valve: The pulmonic valve leaflets are thin and pliable; valve motion is normal. There is no pulmonic valvular regurgitation. Great Vessels: The aortic root is normal size. The dimensions of the ascending aorta are normal. The IVC is of normal diameter and collapses greater than 50% with a sniff. This suggests a low right atrial pressure of 3 mm Hg. Pericardium/ Pleura There is no pericardial effusion. There is no pleural effusion. MMode/2D Measurements & Calculations LVIDd: 4.2 cm LVOT diam: 1.9 cm LVIDs: 2.6 cm Ao root diam: 2.7 cm FS: 38.1 % asc Aorta Diam: 2.8 cm EPSS: 0.31 cm Ao Arch Diam (Prox Trans): 2.2 cm IVSd: 1.0 cm LVPWd: 0.70 cm LV colon. diameter/BSA (cm/m^2): 2.5 LV sys. diameter/BSA (cm/m^2): 1.5 LA A2 area: 22.5 cm2 RA long axis: 4.6 cm LA A4 area: 20.7 cm2 RA area: 12.4 cm2 LA length (vol): 5.1 cm RA vol: 28.5 ml LA vol: 77.1 ml RA : 16.7 ml/m2 LA vol index: 45.2 ml/m2 IVC diam: 1.5 cm RVD1 (basal): 3.0 cm TAPSE: 2.3 cm Doppler Measurements & Calculations Ao V2 max: 190.9 cm/sec LVOT Max Garrick: 108.9 cm/sec Ao V2 mean: 123.7 cm/sec LV V1 max P.7 mmHg Ao max P.6 mmHg LV V1 VTI: 26.5 cm Ao mean P.9 mmHg GERMAN(I,D): 1.8 cm2 Ao V2 VTI: 41.7 cm GERMAN(V,D): 1.6 cm2 sev ratio: 0.64 GERMAN indexed to BSA (cm^2/m^2): 1.1 MV E max garrick: 161.1 cm/sec PA pr(Accel): 5.4 mmHg MV A max garrick: 79.5 cm/sec MV E/A: 2.0 Med Peak E' Garrick: 18.4 cm/sec E/E' med: 8.8 Lat Peak E' Garrick: 18.5 cm/sec E/E' lat: 8.7 E/e' average: 8.7 MV dec time: 0.23 sec SVLVOT): 76.2 ml Reading Physician:01:08 PM
--- NOTE | 2020-11-12 10:10 | PT.IIE ---
Surgical History (Last Reviewed 11/11/20 @ 22:02 by CHARLES Mane) H/O bursectomy H/O repair of rotator cuff History of cholecystectomy History of hysterectomy History of knee surgery Medical History (Last Updated 11/11/20 @ 22:19 by CHARLES Mane) Constipation Depression Hearing loss in left ear Heartburn Insomnia Primary osteoarthritis of right knee Trigeminal neuralgia of left side of face (~11/2019) Physical Therapy Inpatient Evaluation/Re-Eval M1 PT/OT-IP Prior Functional Status Start: 11/12/20 11:37 Freq: NEEDED Status: Active Protocol: Document 11/12/20 10:10 AB (Rec: 11/12/20 12:00 AB [id number]) Medical Review Prior Functional Status Medical History Reviewed Yes Communication able to make needs known Mobility and Gait per pt: prior to R TKA: ambulated using FWW for 4 weeks but able to ambulate without AD a few weeks prior to surgery after R TKA: pt d/c'd home but has not been doing much due to c/o not feeling well and has just stayed in bed but able to get up and use the toilet using FWW by herself Social History Household Members family Living Arrangements House Number of Floors (Floors) Two Floors Home Environment High Toilet,Tub/Shower,Ramp Home Equipment Front Wheel Walker,Shower Seat without Backrest,Hand Held Shower,Grab Bars In Shower Additional Social History Comment pt stated that her grand daughter lives with her and assists her but is concerned that she will not assist her as much as she needs pt has an adjustable bed M2 PT-IP Current Condition Start: 11/12/20 11:37 Freq: NEEDED Status: Active Protocol: Document 11/12/20 10:10 AB (Rec: 11/12/20 12:00 AB [id number]) Physical Therapy Current Condition Current Condition Evaluation Date 11/12/20 Treatment Diagnosis bradycardia; R TKA(11/07/20); difficulty in walking Onset Date 11/11/20 M3 PT-IP Subjective Start: 11/12/20 11:37 Freq: NEEDED Status: Active Protocol: Document 11/12/20 10:10 AB (Rec: 11/12/20 12:00 AB [id number]) Subjective Physical Therapy Visit Type Type Initial Evaluation Visit Start Time 10:10 Visit Stop Time 10:51 Total Visit Minutes 41 Number of INSULATION NOZZLEMAN Visits 0 Physical Therapy Visit Comments Patient Comments pt is agreeable to do PT Therapy Pain Assessment Pain When Pain Assessed During Mobility Pain Present Pain Present Pain Reported Location R knee Scale Used pain scale not stated Pain Behaviors Facial Grimacing,Guarding, Wincing Pain Management Techniques Apply Cold,Distraction, Modification of Treatment,Re- positioning,Timing of Activity with Medications M4 PT-IP Mobility and Gait Start: 11/12/20 11:37 Freq: NEEDED Status: Active Protocol: Document 11/12/20 10:10 AB (Rec: 11/12/20 12:00 AB [id number]) PT-Bed Mobility Assessment Supine to Sit Supine to Sit Minimal Assistance,1 Person Assistance Sit to Supine Sit to Supine Standby Assistance PT-Transfer Assessment Sit to and From Stand Sit to and from Stand Contact Guard Assistance,1 Person Assistance,Use of Upper Extremities Equipment Transfer Assistive Device Gait Belt,Front Wheeled Walker Orthotic/Prosthetic Devices or Brace: No Transfers Transfer Destination Chair Transfer Technique ambulated using FWW Transfer Ability Level of Assist Contact Guard Assistance Comments Mobility Comments pt just transferred with nurse from bedside commode to the bed. completed sit to supine SBA. obtained PLOF and home set up. pt agreed to get up again. completed supine to sit min A with RLE. pt was able to sit on EOB SBA. HR resting and with activity 51- 55 bpm. O2 sat 95-97% pt ocmpleted sit to stand CGA and ambulated ~ 5 ft using FWW CGA and agreed to sit up on chair. positioned on chair. call light and table placed within reach. Gait Assessment Gait Gait Assistance Required: Contact Guard Assist Distance (Feet) 5 Assistive Devices Assistive Device Gait Belt,Front Wheeled Walker Orthotic/Prosthetic Devices or Brace: No Gait Deviations General Gait Pattern Antalgic,Decreased Stride Length,Decreased Feet Clearance,Step-to Gait Factors Limiting Gait Function Factors Limiting Gait Function Decreased Activity Tolerance, Decreased Strength,Difficulty Following Directions,Limited Range of Motion,Pain,Poor Balance,Poor Safety Awareness, Respiratory Distress Comments Gait Comments presents with antalgic gait with decrease RLE elevation during ambulation PT-Balance Assessment Sitting Balance and Reactions Static Sitting Balance Ability Good Dynamic Sitting Balance Ability Good Standing Balance and Reactions Static Standing Balance Ability Fair Dynamic Standing Balance Ability Fair Device Used FWW M5 PT-IP Objective Assessments Start: 11/12/20 11:37 Freq: NEEDED Status: Active Protocol: Document 11/12/20 10:10 AB (Rec: 11/12/20 12:00 AB [id number]) Orientation Orientation/Cognition Level of Alertness Alert Orientation Name,Place,Situation Language Function Ability Hard of Hearing Safety Awareness Decreased Safety Awareness Gross Range of Motion Lower Extremity ROM Assessment Right Impaired Impairments R knee flexion: ~ 50 degrees Strength Lower Extremity Strength Assessment Right Impaired Hip 4-/5 Knee 3+/5 Muscle Tone Muscle Tone WNL Yes M6 PT-IP Treatment Start: 11/12/20 11:37 Freq: NEEDED Status: Active Protocol: Document 11/12/20 10:10 AB (Rec: 11/12/20 12:00 AB [id number]) Physical Therapy Treatment Exercises Exercises Heel Slides Education Education Provided Safety M7 PT-IP Assessment and Plan Start: 11/12/20 11:37 Freq: NEEDED Status: Active Protocol: Document 11/12/20 10:10 AB (Rec: 11/12/20 12:00 AB [id number]) PT Summary Assessment and Plan Potential Rehabilitation Potential Good Status of Condition at Evaluation Evolving Summary Impairments Pain,ROM,Strength,Balance, Coordination,Sensation,Tone, Cognition,Bed Mobility, Transfers,Gait,Activity Tolerance Assessment Summary pt requiring CGA to min A and cues with mobility. unable to tolerate much activity due to c/o pain and generalized weakness. pt is concerned about her grand daughter being able to assist her and informed pt regarding caregiver training if needed. will continue to assess progress but at this time will need SNF rehab. Goals Bed Mobility Goal Standby Assistance Transfer Goal Standby Assistance,Front Wheeled Walker Gait Goal Standby Assistance,Front Wheel Walker Gait Distance 100 Other Goals improve ambulation using FWW 200 ft SBA Days to Meet Goals 5 Frequency of Treatment Frequency Of Treatment Twice a Day Treatment Plan Physical Therapy Treatment Plan Bed Mobility Training,Transfer Training,Gait Training, Therapeutic Exercise,Balance Retraining,Post Op Education, Discharge Planning,Hot or Cold Pack,Neuromuscular Re-ed, Coordination Retraining,Manual Therapy Precautions Other Precautions HR Recommendations To Nursing Amount of Assist Needed 1 Person Assist Discharge Recommendations PT Discharge Recommendations Home with 24/7 Assist Available,Home Health,SNF Rehab Other Discharge Recommendations depending on progress: SNF vs home with 24/7 and HHPT Transportation Needs at Discharge Private Vehicle,Wheelchair/ Cabulance
--- NOTE | 2020-11-12 14:10 | CM.DANOTE ---
Patient is a 80 year old female READMIT on 11/11/20 for Dizziness/constipation. Pt has BX FED and MCR A for insurance and her PCP is Dr. Roseann Dietrich. EMR was reviewed. Per MD, pt is a few days out from planned Ortho knee replacement on 11/07/20 and returns with bradycardia and constipation and getting bolus fluids and bowel regimen with possible d/c tomorrow if stable. Per PT, pt seems to have declined in her ambulation since last admission as she had been SBA after knee surgery and recommendation was home with assist and outpt PT. But pt discharged home and states she wasn't feeling well so basically was in bed for 5 days and only up for the bathroom. Pt now only ambulated about 5 feet. PT will complete CG training [facility] tomorrow and this will determine recommendation of home with assist and HH vs SNF. SW met bedside with pt and explained role and pt confirms her preference would be home and she is agreeable to HH. SW discussed that only HH agency that covers [facility] is [facility] and pt is agreeable with SW making HH referral to determine if her insurance is contracted with [facility]. Pt all[facility] as pt feels she could use more assist from [facility] but does not seem to be verbally communicating this to [facility]. Therefore CG training with PT will be helpful in determining [facility]'s ability/willingness to assist pt at d/c. SAMUEL called [facility] with new referral and to determine if they can accept her insurance and they will review clinicals and insurance and confirm if they can accept. SW faxed clinicals and facesheet to review. Plan: SW to follow for pt progress with PT and hopeful CG training with [facility] towards plan of home with HH. SW to follow to confirm [facility] can accept. F2F and orders will be needed if home. BRENNAN El[place] Discharge Planning/Care Management Advanced directive, confirm from FAMILY Start: 11/11/20 20:07 Freq: Q24H Status: Active Protocol: Document 11/11/20 20:08 EM (Rec: 11/11/20 20:09 EM [id number]) Advance Directive, confirm on record Time 20:08 Person contacted Edrie Copy received No CM Discharge Assessment Start: 11/12/20 14:02 Freq: Status: Active Protocol: Document 11/12/20 14:02 BF (Rec: 11/12/20 14:10 BF [id number]) Discharge Planning Assessment Assigned Director Career BRENNAN [place]/Assigned Designee Name edgard Suarez Contact Information [phone] Advance Directives? No Advance Directives on File No History Provided By Patient,Medical Record Has Patient been admitted in last 30 Yes days? Comment Recent admission for planned Ortho surg, readmit after d/c home Prior Living Arrangements House Household Members family Type of transporation used prior to Relies on Others admit Independent with ADL's Yes Is patient alert and oriented? Yes Needs Assistance With Home Chores / Shopping Caregiver for Another No Community Services used prior to Physical Therapy admission: DME Already Rented / Owned FWW / Walker Patient/Family Preference Home with Home Health Barriers to Discharge No Discharge Plan Home with Home Health Transportation Arrangement Malka Muller can transport home and stays with pt for assist. Referrals Initiated Home Health Medicare Choice List Provided Yes SNF/HH Preference [facility] only agency goes to [facility] Has Agency SNF been contacted Yes Whiteboard Updated in Patient Room with Yes name and ext. # of Director Career Review Status In Process Please Provide Date Initial DC 11/12/20 Assessment Was Performed Next Review Type Continued Stay Review
--- NOTE | 2020-11-12 14:37 | PM.PN.1 ---
Subjective Subjective Date Patient Seen: 11/12/20 Time Patient Seen: 11:00 Interval history: Still feels poorly today. Dizzy when getting out of bed. Still constipated, had small lumpy BM this AM. Orthostatics were positive when taken this AM Exam Vital Signs (past 8 hours): - 11/12/20 07:00 11/12/20 07:45 11/12/20 08:00 Temperature 97.5 F L Pulse Rate 61 50 L Respiratory Rate 16 Blood Pressure 146/98 H 131/42 L Pulse Oximetry 93 94 Oxygen Delivery Method Room Air Oxygen Flow Rate 0 Narrative Exam Narrative: Gen: no acute distress HEENT: normocephalic, atraumatic, conjunctiva clear, sclera non-icteric, oral mucosa dry Neck: supple, full ROM, no JVD, trachea is midline Resp: Lungs CTA, non-labored breathing CV: bradycardic, 3/6 systolic ejection murmur Abd: soft, non-tender, Hypoactive BTs Skin: no lesions or rashes, dry and intact Neuro: awake alert and oriented. Soft spoken Speech. Extremities: moves all 4 extremities, is ambulatory, negative Shelly?s sign Psyche: normal mood and affect. Objective Labs Result Diagrams: 11/12/20 06:30 11/12/20 06:30 Labs: Laboratory Results - last 24 hr 11/11/20 11/11/20 11/11/20 17:19 17:19 17:19 WBC 9.6 RBC 3.36 L Hgb 10.5 L Hct 30.8 L MCV 91.9 MCH 31.3 MCHC 34.0 RDW 13.0 Plt Count 293 Neut % (Auto) 70.7 Lymph % (Auto) 16.7 L [place] % (Auto) 8.4 Eos % (Auto) 3.6 Baso % (Auto) 0.6 Neut # (Auto) 6800 Lymph # (Auto) 1600 [place] # (Auto) 800 Eos # (Auto) 300 Baso # (Auto) 100 PT 11.8 INR 1.0 APTT 36 Sodium 131 L Potassium 4.4 Chloride 97 L Carbon Dioxide 27 BUN 12 Creatinine 0.74 Estimated GFR > 60.0 BUN/Creatinine Ratio 16.2 Glucose 93 Calcium 9.0 Magnesium Total Bilirubin 0.8 AST 36 ALT 35 H Alkaline Phosphatase 123 Total Creatine Kinase 99 CK-MB (CK-2) TNP CK-MB (CK-2) Rel Index TNP Troponin I < 0.012 Total Protein 6.3 Albumin 3.5 Globulin 2.8 Albumin/Globulin Ratio 1.3 Lipase 15 L TSH SARS-CoV-2 (PCR) 11/11/20 11/11/20 11/11/20 17:19 17:19 18:42 WBC RBC Hgb Hct MCV MCH MCHC RDW Plt Count Neut % (Auto) Lymph % (Auto) [place] % (Auto) Eos % (Auto) Baso % (Auto) Neut # (Auto) Lymph # (Auto) [place] # (Auto) Eos # (Auto) Baso # (Auto) PT INR APTT Sodium Potassium Chloride Carbon Dioxide BUN Creatinine Estimated GFR BUN/Creatinine Ratio Glucose Calcium Magnesium 1.8 Total Bilirubin AST ALT Alkaline Phosphatase Total Creatine Kinase CK-MB (CK-2) CK-MB (CK-2) Rel Index Troponin I Total Protein Albumin Globulin Albumin/Globulin Ratio Lipase TSH 2.96 SARS-CoV-2 (PCR) Negative 11/12/20 11/12/20 06:30 06:30 WBC 8.8 RBC 3.04 L Hgb 9.7 L Hct 28.1 L MCV 92.1 MCH 31.8 MCHC 34.5 RDW 13.3 Plt Count 275 Neut % (Auto) 56.1 Lymph % (Auto) 25.8 [place] % (Auto) 10.9 Eos % (Auto) 6.4 H Baso % (Auto) 0.8 Neut # (Auto) 4900 Lymph # (Auto) 2300 [place] # (Auto) 1000 H Eos # (Auto) 600 H Baso # (Auto) 100 PT INR APTT Sodium 131 L Potassium 4.2 Chloride 102 Carbon Dioxide 22 BUN 9 Creatinine 0.62 Estimated GFR > 60.0 BUN/Creatinine Ratio 14.5 Glucose 98 Calcium 8.6 Magnesium 1.8 Total Bilirubin AST ALT Alkaline Phosphatase Total Creatine Kinase CK-MB (CK-2) CK-MB (CK-2) Rel Index Troponin I Total Protein Albumin Globulin Albumin/Globulin Ratio Lipase TSH SARS-CoV-2 (PCR) [facility] Medical History (Updated 11/11/20 @ 22:23 by CHARLES Mane) Constipation Depression Hearing loss in left ear Heartburn Insomnia Primary osteoarthritis of right knee Trigeminal neuralgia of left side of face (~11/2019) Surgical History (Updated 11/11/20 @ 22:29 by CHARLES Mane) H/O bursectomy H/O repair of rotator cuff History of cholecystectomy History of hysterectomy History of knee surgery Family History (Updated 11/11/20 @ 22:04 by CHARLES Mane) Mother Old age Father Myocardial infarction Social History household members: family Smoking Status: Former smoker alcohol intake: never Assessment & Plan Assessment & Plan narrative: Sinus bradycardia, acute and present on admission, symptoms of dizziness and lightheaded. TSH negative - Cardiac telemetry - Try to taper down doses of opioid narcotics for pain relief with switch from oxycodone to hydrocodone Orthostatic hypotension, feels dizzy when getting up to ambulate - stopped maintenance fluids and bolused patient, plan for repeat orthostatics Blood loss anemia, from recent surgery - Hgb 9.7 this morning, prior to surgery was 14 - continue to monitor and if drops may need transfusion Systolic ejection murmur - ordered for ECHO also given bradycardia Right total knee replacement POD #5 - She is anticoagulted on ASA 81 mg po bid - PT is ordered Opioid induced constipation - Mineral oil fleets enema prn - start scheduled Senna - miralax, dulcolax prn - encourage ambulation Depression - Continue home dose of duloxatine 30 mg po daily - Continue melatonin 9 mg po at bedtime for sleep VTE prophylaxis: Wells risk score: 1.5 she was recently discharged on Asprin 81 mg bid and will continue this and left leg SCDs Consults: none Patient is observation status as her stay is not likely to exceed 2 midnights. FEN: General diet. Dispo: eventual discharge to home, possible HH PT pending eval Code Status: Full as previously discussed with patient Quality MIPS - Admit Advanced Care Plan / Current Medications Measures: #47 ? Advanced Care Plan Clinician documentation instruction: document at admission. [] I confirmed that the patient's Advance Care Plan is present, code status is documented, or surrogate decision maker is listed in the patient?s medical record. [SATISFIES MIPS PERFORMANCE] If Yes, Stop Here [] The patient?s Advance Care plan is not present because: (select) [MIPS PERFORMANCE EXCEPTION/EXCLUSION] [] I confirmed today that the patient does not wish or was not able to name a surrogate decision maker or provide an Advance Care Plan. [] Hospice care is currently being provided or has been provided this calendar year [] I did NOT confirm today the presence of an Advance Care Plan or surrogate decision maker documented within the patient's medical record. [DOES NOT SATISFY MIPS PERFORMANCE] #130 - Documentation of Current Medications in the Medical Record Clinician documentation instruction: use macro the first time you see a patient. [] I have utilized all available immediate resources to obtain, update, or review the patient?s current medications. [SATISFIES MIPS PERFORMANCE] If Yes, Stop Here [] The patient is not eligible for medication reconciliation; the patient is in an emergent medical situation where delaying treatment would jeopardize the patient?s health. [MIPS PERFORMANCE EXCEPTION/EXCLUSION] [] I did NOT confirm, update or review the patient's current list of medications today. [DOES NOT SATISFY MIPS PERFORMANCE] MIPS - CL Central Venous Catheter Placement Measure: #76 ? Prevention of Central Venous Catheter (CVC) ? Related Bloodstream Infection Clinician documentation instruction: use macro every time you place a central line. [] All elements of Maximal Sterile Barrier Technique, including hand hygiene, skin prep, and sterile ultrasound technique (if used) were followed. [SATISFIES MIPS PERFORMANCE] If Yes, Stop Here [] If ?No?, the medical reason all elements were NOT used for medical reason [] (ex. emergent condition). [] Maximal Sterile Barrier Technique was not followed, no reason provided [DOES NOT SATISFY MIPS PERFORMANCE] MIPS - DC Heart Failure Measures: #5 - Heart Failure (HF): Angiotensin-Converting Enzyme (BASSAM) Inhibitor or Angiotensin Receptor Matias (ARB) Therapy for Left Ventricular Systolic Dysfunction (LVSD) and #8 - Heart Failure (HF): Beta-Matias Therapy for Left Ventricular Systolic Dysfunction (LVSD) Clinician documentation instruction: use macro at every CHF discharge. [] The patient has current or prior documentation of left ventricular ejection fraction (LVEF) less than 40%, or moderate or severely depressed left ventricular systolic function. Answer both: [SATISFIES MIPS PERFORMANCE] [] The patient was prescribed or already taking an Angiotensin-Converting Enzyme (BASSAM) Inhibitor, or Angiotensin Receptor Matias (ARB). [] The patient was prescribed or already taking a beta-matias. If Yes to Both, Stop Here [] Patient not prescribed/taking: [MIPS PERFORMANCE EXCEPTION/EXCLUSION] [] BASSAM or ARB for medical/patient/system reason(s) including [] (ex. allergy, intolerance, contraindication) [] Beta-matias for medical/patient/system reason(s) including [] (ex. allergy, intolerance, contraindication) [] Patient not prescribed/taking: [DOES NOT SATISFY MIPS PERFORMANCE] [] BASSAM or ARB, no reason given [] Beta-matias, no reason given
--- NOTE | 2020-11-12 15:18 | PT.IPTN ---
Physical Therapy Treatment Note M2 PT-IP Current Condition Start: 11/12/20 11:37 Freq: NEEDED Status: Active Protocol: Document 11/12/20 10:10 AB (Rec: 11/12/20 12:00 AB [id number]) Physical Therapy Current Condition Current Condition Evaluation Date 11/12/20 Treatment Diagnosis bradycardia; R TKA(11/07/20); difficulty in walking Onset Date 11/11/20 M3 PT-IP Subjective Start: 11/12/20 11:37 Freq: NEEDED Status: Active Protocol: Document 11/12/20 15:18 AB (Rec: 11/12/20 16:09 AB [id number]) Subjective Physical Therapy Visit Type Type Treatment Note Visit Start Time 15:18 Visit Stop Time 15:40 Total Visit Minutes 22 Number of RN EMERGENCY Visits 0 Physical Therapy Visit Comments Patient Comments checked on pt after lunch but refused PT. stated that she has to rest. checked on pt again and pt sitting up on chair. stated that she feels better and agreed to do PT. Therapy Pain Assessment Pain When Pain Assessed During Mobility Pain Present Pain Present Pain Reported Location R knee Scale Used scale not stated Pain Management Techniques Distraction,Modification of Treatment,Re-positioning, Timing of Activity with Medications M4 PT-IP Mobility and Gait Start: 11/12/20 11:37 Freq: NEEDED Status: Active Protocol: Document 11/12/20 15:18 AB (Rec: 11/12/20 16:09 AB [id number]) PT-Transfer Assessment Sit to and From Stand Sit to and from Stand Standby Assistance Equipment Transfer Assistive Device Gait Belt,Front Wheeled Walker Orthotic/Prosthetic Devices or Brace: No Comments Mobility Comments pt completed sit to stand from chair SBA and ambulated in room using FWW SBA ~ 40 ft. presents with antalgic gait with decrease RLE elevation and step length. pt sat on chair to rest. completed heel slides in sitting with 5-10 sec hold on end range of flexion. pt c/o pain with guarding but educated on importance of ROM. pt was able to tolerate activity and agreed to ambulate again after heel slides. completed another 40 ft using FWW SBA. pt requested to rest afterwards. positioned on chair. call light and table placed within reach. educated pt on HEP and to do ROM on R knee later on today and pt agreed. Gait Assessment Gait Gait Assistance Required: Standby Assistance Distance (Feet) 40 Able to Maintain Weight Bearing Status Yes During Gait Assistive Devices Assistive Device Gait Belt,Front Wheeled Walker Orthotic/Prosthetic Devices or Brace: No Gait Deviations General Gait Pattern Antalgic,Decreased Stride Length,Decreased Feet Clearance,Step-to Gait Factors Limiting Gait Function Factors Limiting Gait Function Decreased Activity Tolerance, Decreased Strength,Limited Range of Motion,Pain,Poor Balance,Poor Safety Awareness Comments Gait Comments pls refer to mobility section for details M5 PT-IP Objective Assessments Start: 11/12/20 11:37 Freq: NEEDED Status: Active Protocol: Document 11/12/20 10:10 AB (Rec: 11/12/20 12:00 AB [id number]) Orientation Orientation/Cognition Level of Alertness Alert Orientation Name,Place,Situation Language Function Ability Hard of Hearing Safety Awareness Decreased Safety Awareness Gross Range of Motion Lower Extremity ROM Assessment Right Impaired Impairments R knee flexion: ~ 50 degrees Strength Lower Extremity Strength Assessment Right Impaired Hip 4-/5 Knee 3+/5 Muscle Tone Muscle Tone WNL Yes M6 PT-IP Treatment Start: 11/12/20 11:37 Freq: NEEDED Status: Active Protocol: Document 11/12/20 15:18 AB (Rec: 11/12/20 16:09 AB [id number]) Physical Therapy Treatment Education Education Provided Safety M7 PT-IP Assessment and Plan Start: 11/12/20 11:37 Freq: NEEDED Status: Active Protocol: Document 11/12/20 15:18 AB (Rec: 11/12/20 16:09 AB [id number]) PT Summary Assessment and Plan Potential Rehabilitation Potential Good Summary Impairments Pain,ROM,Strength,Balance, Coordination,Tone,Cognition, Bed Mobility,Transfers,Gait, Activity Tolerance Progress Towards Goals Slow Progress due to Pain,Slow Progress due to Activity Tolerance Assessment Summary pt requiring SBA with mobility but continues to have decrease activity tolerance. pt is worried that her grand daughter might not be able to assist and encourage her to mobilize at home. informed pt that PT can do caregiver training when needed. informed disease case manager regarding pt's concern and also HHPT needed for d/c home. will continue to assess progress. Goals Bed Mobility Goal Standby Assistance Transfer Goal Standby Assistance,Front Wheeled Walker Gait Goal Standby Assistance,Front Wheel Walker Gait Distance 100 Other Goals improve ambulation using FWW 200 ft SBA Days to Meet Goals 5 Frequency of Treatment Frequency Of Treatment Twice a Day Treatment Plan Physical Therapy Treatment Plan Bed Mobility Training,Transfer Training,Gait Training, Therapeutic Exercise,Balance Retraining,Post Op Education, Discharge Planning,Hot or Cold Pack,Neuromuscular Re-ed, Coordination Retraining,Manual Therapy Precautions Other Precautions HR Recommendations To Nursing Amount of Assist Needed 1 Person Assist Discharge Recommendations PT Discharge Recommendations Home with 18/03 Assist Available,Home Health Transportation Needs at Discharge Private Vehicle,Wheelchair/ Cabulance
[2020-11-12] MEDS: BISACODYL 5 MG TABLET PO (21:00)
[2020-11-12] MEDS: MELATONIN 3 MG TABLET 9 MG PO (21:01)
[2020-11-12] MEDS: HYDROCORTISONE 25 MG SUPP PR (21:03)
[2020-11-13 00:20] VITALS: BP 106/43; PULSE 51; RESP 15; TEMP 36.3; O2SAT 96
[2020-11-13 03:20] VITALS: BP 129/59; PULSE 54; RESP 17; TEMP 36.7; O2SAT 94
[2020-11-13] MEDS: PANTOPRAZOLE 40 MG TABLET PO (06:05)
[2020-11-13 06:12] LABS: Hematocrit 27.3 % (36-46); Hemoglobin 9.4 g/dL (12.0-16.0); Mean Corpuscular HGB Conc 34.4 % (30-36); Mean Corpuscular Hemoglobin 31.8 PG (26-34); Mean Corpuscular Volume 92.3 fL (80-100); Platelet Count 301 X10^3/uL (150-400); Red Blood Cell Count 2.95 X10^6/uL (4.0-5.2); Red Cell Distribution Width 13.3 % (11.6-14.8); White Blood Cell Count 8.7 X10^3/uL (4.5-11.0)
[2020-11-13 06:19] LABS: BUN Creatinine Ratio 13.3 (6-22); Blood Urea Nitrogen 8 mg/dL (7-17); Calcium 8.7 mg/dL (8.4-10.2); Carbon Dioxide 25 mmol/L (22-32); Chloride 104 mmol/L (98-107); Estimated Glomerular Filt Rate > 60.0 mL/min (>60); Glucose 111 mg/dL (80-110); HEMOLYSIS < 15 (0-50); Sodium 135 mmol/L (137-145)
[2020-11-13 07:50] VITALS: BP 119/66; PULSE 52; RESP 16; TEMP 36.4; O2SAT 98
[2020-11-13 08:00] VITALS: O2SAT 98
[2020-11-13] MEDS: polyethylene glycoL 3350 17 GM POWD.PACK PO (08:45)
[2020-11-13] MEDS: DULOXETINE 30 MG CAPSULE PO (08:46)
[2020-11-13] MEDS: SENNOSIDES 8.6 MG TABLET 17.2 MG PO (08:46)
[2020-11-13] MEDS: ASPIRIN EC 81 MG TABLET PO (08:46)
[2020-11-13] MEDS: FERROUS SULFATE 325 MG TABLET PO (08:50)
[2020-11-13] MEDS: HYDROCODONE/ACET 5/325 TABLET 1 TAB PO ×2 (09:08→13:33)
--- NOTE | 2020-11-13 10:26 | CM.DPC ---
DCP Discharge Home with HH Per MD, pt is medically stable to d/c home later today with family assist and HH and signed the F2F. Per PT yesterday, recommending CG training prior to d/c and HH. SW met bedside with pt and RN and explained role again and pt confirms that she is agreeable with d/c home today and Dtr (not granddtr like anticipated) would be providing transport home and catching the 1220 ferry to [place] and hoping to get on the 1530 ferry back. SAMUEL discussed benefit of CG training with Dtr and PT and pt agreeable but feels there may not be much time due to ferry schedule. SAMUEL updated PT who will attempt to at least meet bedside with Dtr and pt prior to d/c and hopefully do some CG training. SAMUEL contacted [facility] with update on d/c home today and faxed F2F amd MD orders and will fax d/c summary when available. Plan: Patient to d/c home via Dtr POV today back to [facility] and [facility] referral to start pt to service after discharge. Eliane Gonzalez MSW
[2020-11-13] MEDS: BISACODYL 5 MG TABLET PO (10:32)
--- NOTE | 2020-11-13 12:21 | PT.IPTN ---
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); difficulty in walking Onset Date 11/11/20 M3 PT-IP Subjective Start: 11/12/20 11:37 Freq: NEEDED Status: Active Protocol: Document 11/13/20 11:14 AW (Rec: 11/13/20 12:21 AW [id number]) Subjective Physical Therapy Visit Type Type Treatment Note Visit Start Time 10:47 Visit Stop Time 11:14 Total Visit Minutes 27 Number of CARTRIDGE GAUGER Visits 0 Physical Therapy Visit Comments Patient Comments Pt willing to participate with PT Therapy Pain Assessment Pain When Pain Assessed During Mobility Pain Present Pain Present Pain Reported Location R knee Intensity 12 Scale Used Numeric (0 - 10) Pain Management Techniques Apply Cold,Distraction, Modification of Treatment,Re- positioning,Timing of Activity with Medications M4 PT-IP Mobility and Gait Start: 11/12/20 11:37 Freq: NEEDED Status: Active Protocol: Document 11/13/20 11:14 AW (Rec: 11/13/20 12:21 AW [id number]) PT-Bed Mobility Assessment Supine to Sit Supine to Sit Standby Assistance Scooting Scooting to Edge of Bed Standby Assistance PT-Transfer Assessment Sit to and From Stand Sit to and from Stand Contact Guard Assistance,Use of Upper Extremities Equipment Transfer Assistive Device Gait Belt,Front Wheeled Walker Orthotic/Prosthetic Devices or Brace: No Transfers Transfer Destination Bed,Chair,Toilet Transfer Technique ambulated using FWW Transfer Ability Level of Assist Standby Assistance,Contact Guard Assistance Comments Mobility Comments Pt was lying in the bed as PT arrived. She completed supine to sit SBA and then stood from the bed CGA. She ambulated 15 feet to the toilet and transferred to and from CGA. She then ambulated to the sink and completed handwashing. She donned her mask and walked toward the hallway but needed to turn around and sit on the near side of the bed due to reported 12/10 knee pain vs abdomen pain. After a brief rest period, pt stood [facility] and ambulated to the chair ~15 feet. She sat and was positioned on the chair with ice pack and blankets, call light and all needs in reach. Gait Assessment Gait Gait Assistance Required: Standby Assistance Distance (Feet) 15 Able to Maintain Weight Bearing Status Yes During Gait Assistive Devices Assistive Device Gait Belt,Front Wheeled Walker Orthotic/Prosthetic Devices or Brace: No Gait Deviations General Gait Pattern Antalgic,Decreased Stride Length,Decreased Feet Clearance,Step-to Gait Factors Limiting Gait Function Factors Limiting Gait Function Decreased Activity Tolerance, Decreased Strength,Limited Range of Motion,Pain,Poor Balance,Poor Safety Awareness Comments Gait Comments pls refer to mobility section for details PT-Balance Assessment Sitting Balance and Reactions Static Sitting Balance Ability Good Dynamic Sitting Balance Ability Good Standing Balance and Reactions Static Standing Balance Ability Fair Dynamic Standing Balance Ability Fair Device Used FWW M5 PT-IP Objective Assessments Start: 11/12/20 11:37 Freq: NEEDED Status: Active Protocol: Document 11/12/20 10:10 AB (Rec: 11/12/20 12:00 AB [id number]) Orientation Orientation/Cognition Level of Alertness Alert Orientation Name,Place,Situation Language Function Ability Hard of Hearing Safety Awareness Decreased Safety Awareness Gross Range of Motion Lower Extremity ROM Assessment Right Impaired Impairments R knee flexion: ~ 50 degrees Strength Lower Extremity Strength Assessment Right Impaired Hip 4-/5 Knee 3+/5 Muscle Tone Muscle Tone WNL Yes M6 PT-IP Treatment Start: 11/12/20 11:37 Freq: NEEDED Status: Active Protocol: Document 11/13/20 11:14 AW (Rec: 11/13/20 12:21 AW [id number]) Physical Therapy Treatment Exercises Exercises Seated Knee Flexion/Extension Education Education Provided Safety Other Treatments Other Treatment Performed Discussed level of assist needed for successful transition back to home. M7 PT-IP Assessment and Plan Start: 11/12/20 11:37 Freq: NEEDED Status: Active Protocol: Document 11/13/20 11:14 AW (Rec: 11/13/20 12:21 AW [id number]) PT Summary Assessment and Plan Potential Rehabilitation Potential Good Summary Impairments Pain,ROM,Strength,Balance, Coordination,Tone,Cognition, Bed Mobility,Transfers,Gait, Activity Tolerance Progress Towards Goals Slow Progress due to Pain,Slow Progress due to Activity Tolerance Assessment Summary Pt required SBA to CGA with all mobility this session. She expressed concern about needing more assist than she might have at home. Pt's daughter, Jennifer, will pharmacy picking technician pt this PM. Will conduct training with daughter who will then be able to train pt' s granddaughter who lives with her. Home health will be needed to progress pt's mobility independence. Goals Bed Mobility Goal Standby Assistance Transfer Goal Standby Assistance,Front Wheeled Walker Gait Goal Standby Assistance,Front Wheel Walker Gait Distance 100 Other Goals improve ambulation using FWW 200 ft SBA Days to Meet Goals 5 Frequency of Treatment Frequency Of Treatment Twice a Day Treatment Plan Physical Therapy Treatment Plan Bed Mobility Training,Transfer Training,Gait Training, Therapeutic Exercise,Balance Retraining,Post Op Education, Discharge Planning,Hot or Cold Pack,Neuromuscular Re-ed, Coordination Retraining,Manual Therapy Precautions Other Precautions HR Recommendations To Nursing Amount of Assist Needed Standby Assistance Discharge Recommendations PT Discharge Recommendations Home with 24/ Assist Available,Home Health Transportation Needs at Discharge Private Vehicle,Wheelchair/ Cabulance
[2020-11-13 12:36] VITALS: BP 133/61; PULSE 50; RESP 16; TEMP 36.6; O2SAT 98
--- NOTE | 2020-11-13 13:45 | PT.IPTN ---
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); difficulty in walking Onset Date 11/11/20 M3 PT-IP Subjective Start: 11/12/20 11:37 Freq: NEEDED Status: Discharge Protocol: Document 11/13/20 13:45 AW (Rec: 11/13/20 14:43 AW [id number]) Subjective Physical Therapy Visit Type Type Treatment Note Visit Start Time 13:28 Visit Stop Time 13:45 Total Visit Minutes 17 Number of EXECUTIVE COMMUNICATIONS MANAGER Visits 0 Physical Therapy Visit Comments Patient Comments Pt willing to participate with PT Therapy Pain Assessment Pain When Pain Assessed During Mobility Pain Present Pain Present Pain Reported M4 PT-IP Mobility and Gait Start: 11/12/20 11:37 Freq: NEEDED Status: Discharge Protocol: Document 11/13/20 13:45 AW (Rec: 11/13/20 14:43 AW [id number]) PT-Transfer Assessment Sit to and From Stand Sit to and from Stand Standby Assistance,1 Person Assistance,Use of Upper Extremities Equipment Transfer Assistive Device Gait Belt,Front Wheeled Walker Orthotic/Prosthetic Devices or Brace: No Transfers Transfer Destination Chair,Toilet Transfer Technique ambulated using FWW Transfer Ability Level of Assist Standby Assistance,Contact Guard Assistance Comments Mobility Comments Pt was sitting up in the chair visiting with her daughter as PT arrived. She completed sit to stand SBA and used the FWW to ambulate to the bathroom. Instructed daughter in use of gait belt. Daughter has left side RC injury. Advised daughter she could assist by standing on left side of pt and using her right arm. Daughter assisted with toilet transfer SBA and provided assist as pt ambulated to the sink and back to the chair. Pt moved slowly but safely with FWW. Gait Assessment Gait Gait Assistance Required: Standby Assistance Distance (Feet) 15 Able to Maintain Weight Bearing Status Yes During Gait Assistive Devices Assistive Device Gait Belt,Front Wheeled Walker Orthotic/Prosthetic Devices or Brace: No Gait Deviations General Gait Pattern Antalgic,Decreased Stride Length,Decreased Feet Clearance,Step-to Gait Factors Limiting Gait Function Factors Limiting Gait Function Decreased Activity Tolerance, Decreased Strength,Limited Range of Motion,Pain,Poor Balance,Poor Safety Awareness Comments Gait Comments pls refer to mobility section for details M5 PT-IP Objective Assessments Start: 11/12/20 11:37 Freq: NEEDED Status: Discharge Protocol: Document 11/12/20 10:10 AB (Rec: 11/12/20 12:00 AB [id number]) Orientation Orientation/Cognition Level of Alertness Alert Orientation Name,Place,Situation Language Function Ability Hard of Hearing Safety Awareness Decreased Safety Awareness Gross Range of Motion Lower Extremity ROM Assessment Right Impaired Impairments R knee flexion: ~ 50 degrees Strength Lower Extremity Strength Assessment Right Impaired Hip 4-/5 Knee 3+/5 Muscle Tone Muscle Tone WNL Yes M6 PT-IP Treatment Start: 11/12/20 11:37 Freq: NEEDED Status: Discharge Protocol: Document 11/13/20 13:45 AW (Rec: 11/13/20 14:43 AW [id number]) Physical Therapy Treatment Exercises Exercises Seated Knee Flexion/Extension Education Education Provided Safety Other Treatments Other Treatment Performed Educated pt and her daughter on importance of ROM during initial phase of rehab. Also instructed daughter to provide encouragement for pt to mobilize at home. M7 PT-IP Assessment and Plan Start: 11/12/20 11:37 Freq: NEEDED Status: Discharge Protocol: Document 11/13/20 13:45 AW (Rec: 11/13/20 14:43 AW [id number]) PT Summary Assessment and Plan Potential Rehabilitation Potential Good Summary Impairments Pain,ROM,Strength,Balance, Coordination,Tone,Cognition, Bed Mobility,Transfers,Gait, Activity Tolerance Progress Towards Goals Slow Progress due to Pain,Slow Progress due to Activity Tolerance Assessment Summary Pt's daughter was able to provide appropriate level of assist and cues. Daughter states she will be able to teach pt's granddaughter to provide same. Encouraged pt to vocalize her needs. Pt is safe for discharge home with assist and home health therapy to progress her mobility and strength. Goals Bed Mobility Goal Standby Assistance Transfer Goal Standby Assistance,Front Wheeled Walker Gait Goal Standby Assistance,Front Wheel Walker Gait Distance 100 Other Goals improve ambulation using FWW 200 ft SBA Days to Meet Goals 5 Frequency of Treatment Frequency Of Treatment Twice a Day Treatment Plan Physical Therapy Treatment Plan Bed Mobility Training,Transfer Training,Gait Training, Therapeutic Exercise,Balance Retraining,Post Op Education, Discharge Planning,Hot or Cold Pack,Neuromuscular Re-ed, Coordination Retraining,Manual Therapy Precautions Other Precautions HR Recommendations To Nursing Amount of Assist Needed Standby Assistance Discharge Recommendations PT Discharge Recommendations Home with 18/03 Assist Available,Home Health Transportation Needs at Discharge Private Vehicle,Wheelchair/ Cabulance
--- NOTE | 2020-11-13 13:45 | PM.DS.1 ---
History of Present Illness History of Present Illness Chief complaint: total knee replacement-no BM for days Narrative: Per Eusebia Landon H and P: Janny Madrigal is a 80 y.o. female who just underwent left sided total knee replacement on this past SaturdayNovember 07. She lives over on [address] [facility] and was at home and attempting to ambulate with her walker and became quite lightheaded. She also has not had a bowel movement since being discharged from the hospital this past Saturday. She takes a stool softener as well as oxycodone q.4 hours, Tylenol, and Motrin. She states she has been a little bit nauseous and not really eating much. She denies abdominal pain, dysuria, chest pain or shortness of breath. She has a stated history of nocturnal urticaria. Emergency department requested that we place her under observation for symptomatic bradycardia as her heart rate has been in the 40s and 50s. Patient is afebrile, blood pressure 130/57 heart rate is 52, respiratory rate 17, oxygen saturation 96% on room air she weighs 69.4 kg with a BMI of 28. She is mildly anemic at 10.5 and 30.8, mildly hyponatremic at 1:31 a.m. with a chloride of 97, COVID-19 PCR is negative. Abdominal KUB indicated fecal obstipation, CT angio of the chest ruled out PE. Nilo, her granddaughter is her caregiver and informed me she has a diagnosis of depression, memory impairment since taking pain medications, had previously been taking gabapentin for trigeminal neuralgia, but discontinued it earlier this year. Discharge Providers Provider Date of admission: 11/11/20 19:40 Discharge Date: 11/13/20 Primary care physician: Roseann Dietrich MD Consults: 11/11/20 20:50 Consult to Physical Therapy Evaluate & Treat Comment: Right TKR Physician Instructions: Evaluate and Treat 11/13/20 10:25 Consult to Home Health Routine Comment: knee replacement, constipation Reason For Exam: Set up RN/PT for discharge home today 11/13/20 Discharge provider: Harjeet Augustine MD Summary Hospital Course Discharge Diagnosis: 1. Fecal impaction/constipation 2. Anemia from blood loss from recent orthopedic surgery 3. Sinus Bradycardia 4. Mild aortic stenosis 5. Orthostatic hypotension 6. Depression Hospital Course: Ms. Madrigal was admitted with symptoms of dizziness and lightheadedness. Her hemoglobin after surgery was between 9-10 and prior to surgery earlier in the week was 14. She had no acute bleeding and did not require transfusion. She was noted to be orthostatic hypotension with symptoms which improved with IV fluids. In addition she was noted to have sinus bradycardia. Workup showed normal TSH, no evidence of high degree block or other concerning findings. It was likely that this was related to her opioids used after surgery as she did not have this before. She was also noted to have some symptoms of dizziness while straining and a new systolic ejection murmur. ECHO showed mild aortic stenosis with preserved EF. It is likely that her constipation, low volume status, and aortic stenosis contributed a propensity to vagal while straining. She was encouraged to keep pain under control with medications and then to mobilize to improve her constipation. In addition she was prescribed bowel regimen here, she seemed to respond especially well to miralax. She was recommended sitz baths as well. Discharge time: 35 minutes Status at Discharge Cognitive/behavioral status at discharge: oriented Functional status at discharge: uses cane/walker Overall status at discharge: patient is back to baseline Time Spent with Patient Time spent: Greater than 30 minutes Exam Vital Signs (past 8 hours): - 11/13/20 07:50 11/13/20 08:00 11/13/20 12:36 Temperature 97.5 F L 97.9 F Pulse Rate 52 L 50 L Respiratory Rate 16 16 Blood Pressure 119/66 133/61 Pulse Oximetry 98 98 98 Oxygen Delivery Method Room Air Oxygen Flow Rate 0 Narrative Exam Narrative: Gen: no acute distress HEENT: normocephalic, atraumatic, conjunctiva clear, sclera non-icteric, oral mucosa dry Neck: supple, full ROM, no JVD, trachea is midline Resp: Lungs CTA, non-labored breathing CV: bradycardic, 2/6 systolic ejection murmur Abd: soft, non-tender, Hypoactive BTs Skin: no lesions or rashes, dry and intact Neuro: awake alert and oriented. Soft spoken Speech. Extremities: moves all 4 extremities, is ambulatory, negative Shelly?s sign Psyche: normal mood and affect. Objective Labs Result Diagrams: 11/13/20 05:43 11/13/20 05:43 Labs: Laboratory Results - last 24 hr 11/13/20 11/13/20 05:43 05:43 WBC 8.7 RBC 2.95 L Hgb 9.4 L Hct 27.3 L MCV 92.3 MCH 31.8 MCHC 34.4 RDW 13.3 Plt Count 301 Sodium 135 L Potassium 4.0 Chloride 104 Carbon Dioxide 25 BUN 8 Creatinine 0.60 Estimated GFR > 60.0 BUN/Creatinine Ratio 13.3 Glucose 111 H Calcium 8.7 PFSH Medical History (Updated 11/11/20 @ 22:23 by CHARLES Mane) Constipation Depression Hearing loss in left ear Heartburn Insomnia Primary osteoarthritis of right knee Trigeminal neuralgia of left side of face (~11/2019) Surgical History (Updated 11/11/20 @ 22:29 by CHARLES Mane) H/O bursectomy H/O repair of rotator cuff History of cholecystectomy History of hysterectomy History of knee surgery Family History (Updated 11/11/20 @ 22:04 by CHARLES Mane) Mother Old age Father Myocardial infarction Social History household members: family Smoking Status: Former smoker alcohol intake: never Discharge Plan Discharge Plan Patient Disposition: Home Health Service Provider Discharge Comment: Ms. Madrigal came in with dizziness and constipation. She was found to have a slow heart rate (sinus bradycardia). Her final report for her ECHO showed a normal ejection fraction and mild aortic stenosis. She was given a bowel regimen and was able to use the bathroom more consistently. She will be prescribed a laxative and suppository and should take these daily while on pain medications. She can use daily hydrocortisone cream for rectal discomfort, and she can take warm sitz baths for discomfort as well. She will be referred to get physical therapy at home. She should follow up with her PCP within 2 weeks. Discharge orders & Medications Prescriptions: New sennosides [senna] 8.6 mg Tablet 17.2 mg PO BID Qty: 30 RF: 0 bisacodyl 10 mg suppository 10 mg [place] DAILY PRN (Reason: constipation) Qty: 30 RF: 0 hydrocortisone 1 % cream with perineal applicator 1 applic [place] DAILY Qty: 28.4 RF: 0 Continued omeprazole 40 mg Capsule,Delayed Release(Dr/Ec) 40 mg PO BID RF: 0 ferrous sulfate [Iron (ferrous sulfate)] 325 mg (65 mg iron) Tablet 325 mg PO Q OTHER DAY RF: 0 docusate sodium [Stool Softener] 100 mg Capsule 100 mg PO DAILY RF: 0 hydroxyzine HCl 25 mg Tablet 25 - 50 mg PO Q4H PRN (Reason: Itching) RF: 0 polyethylene glycol 3350 [Miralax] 17 gram/dose Powder 17 g PO DAILY RF: 0 duloxetine 30 mg Capsule,Delayed Release(Dr/Ec) 30 mg PO DAILY RF: 0 melatonin 10 mg Capsule 10 mg PO BEDTIME RF: 0 aspirin 81 mg Tablet,Delayed Release (Dr/Ec) 81 mg PO BID Qty: 60 RF: 0 Changed oxycodone 5 mg Tablet 5 mg PO Q6HR Qty: 60 RF: 0 Follow up/Referrals: Roseann Dietrich MD [Primary Care Provider] - Diet/Activity/Treatments Diet: Diet as Tolerated Visit Report/Discharge Packet Instructions: DI for Prescription Opioid Use, Senna, Bisacodyl Rectal Discharge Data Primary Care Provider: Roseann Dietrich Attending Provider: Eusebia Landon [facility] - Admit Advanced Care Plan / Current Medications Measures: #47 ? Advanced Care Plan Clinician documentation instruction: document at admission. [] I confirmed that the patient's Advance Care Plan is present, code status is documented, or surrogate decision maker is listed in the patient?s medical record. [SATISFIES MIPS PERFORMANCE] If Yes, Stop Here [] The patient?s Advance Care plan is not present because: (select) [MIPS PERFORMANCE EXCEPTION/EXCLUSION] [] I confirmed today that the patient does not wish or was not able to name a surrogate decision maker or provide an Advance Care Plan. [] Hospice care is currently being provided or has been provided this calendar year [] I did NOT confirm today the presence of an Advance Care Plan or surrogate decision maker documented within the patient's medical record. [DOES NOT SATISFY MIPS PERFORMANCE] #130 - Documentation of Current Medications in the Medical Record Clinician documentation instruction: use macro the first time you see a patient. [] I have utilized all available immediate resources to obtain, update, or review the patient?s current medications. [SATISFIES MIPS PERFORMANCE] If Yes, Stop Here [] The patient is not eligible for medication reconciliation; the patient is in an emergent medical situation where delaying treatment would jeopardize the patient?s health. [MIPS PERFORMANCE EXCEPTION/EXCLUSION] [] I did NOT confirm, update or review the patient's current list of medications today. [DOES NOT SATISFY MIPS PERFORMANCE] MIPS - CL Central Venous Catheter Placement Measure: #76 ? Prevention of Central Venous Catheter (CVC) ? Related Bloodstream Infection Clinician documentation instruction: use macro every time you place a central line. [] All elements of Maximal Sterile Barrier Technique, including hand hygiene, skin prep, and sterile ultrasound technique (if used) were followed. [SATISFIES MIPS PERFORMANCE] If Yes, Stop Here [] If ?No?, the medical reason all elements were NOT used for medical reason [] (ex. emergent condition). [] Maximal Sterile Barrier Technique was not followed, no reason provided [DOES NOT SATISFY MIPS PERFORMANCE] MIPS - DC Heart Failure Measures: #5 - Heart Failure (HF): Angiotensin-Converting Enzyme (BASSAM) Inhibitor or Angiotensin Receptor Matias (ARB) Therapy for Left Ventricular Systolic Dysfunction (LVSD) and #8 - Heart Failure (HF): Beta-Matias Therapy for Left Ventricular Systolic Dysfunction (LVSD) Clinician documentation instruction: use macro at every CHF discharge. [] The patient has current or prior documentation of left ventricular ejection fraction (LVEF) less than 40%, or moderate or severely depressed left ventricular systolic function. Answer both: [SATISFIES MIPS PERFORMANCE] [] The patient was prescribed or already taking an Angiotensin-Converting Enzyme (BASSAM) Inhibitor, or Angiotensin Receptor Matias (ARB). [] The patient was prescribed or already taking a beta-matias. If Yes to Both, Stop Here [] Patient not prescribed/taking: [MIPS PERFORMANCE EXCEPTION/EXCLUSION] [] BASSAM or ARB for medical/patient/system reason(s) including [] (ex. allergy, intolerance, contraindication) [] Beta-matias for medical/patient/system reason(s) including [] (ex. allergy, intolerance, contraindication) [] Patient not prescribed/taking: [DOES NOT SATISFY MIPS PERFORMANCE] [] BASSAM or ARB, no reason given [] Beta-matias, no reason given
--- NOTE | 2020-11-13 13:57 | PC.NURSE ---
Discharge instructions given to pt and daughter, discussed- medication use and it's safety, worsening s/s, reasons to seek medical attention, f/u appts, s/s of stroke. Verified personal phone number for provider to contact with echo results, given to PROFILE TRIMMER to input into chart. IV removed, intact, tolerated well. Tele removed, SALON ASSISTANT informed. All questions answered. All belongings packed, pt left via w/c accompanied by daughter and BILLING SUPERVISOR to POV at ER entrance.
== END 2020-11-13 14:01 | disposition home health service (06) ==
LOC: ED 19:34 → AC 19:42
PROVIDERS: Internal Medicine; Admitting Provider Nurse Practitioner Family; Emergency Provider Nurse Practitioner Family; PCP Family Medicine; Referring Provider Nurse Practitioner Family; Visit Provider Nurse Practitioner Family
DX: K56.41 Fecal impaction (principal); Z96.651 Presence of right artificial knee joint; D50.0 Iron deficiency anemia secondary to blood loss (chronic); R00.1 Bradycardia, unspecified; I95.1 Orthostatic hypotension; I35.0 Nonrheumatic aortic (valve) stenosis; F32.9 Major depressive disorder, single episode, unspecified; Z20.822 Contact with and (suspected) exposure to COVID-19
CPT/HCPCS: 36415; 71275; 74022; 74177; 80048; 80053; 81003; 82550; 83690; 83735; 84443; 84484; 85025; 85027; 85610; 85730; 87635; 93005; 93010; 93306; 96361; 96374; 97116; 97162; 97530; 99284; C9803; G0378; J2270; Q9967

== ENCOUNTER 2020-11-18 14:33 | Emergency (ER) | payer BC, SELFPAY ==
[2020-11-11 20:00] VITALS: BMI 28.0
[2020-11-18] VITALS (28 sets, daily range): BP systolic 144–200; BP diastolic 64–112; PULSE 42–60; RESP 11–29; TEMP 36.5; O2SAT 91–100
--- NOTE | 2020-11-18 14:58 | DI.RAD.S_ITS ---
PROCEDURE: XR CHEST 1V INDICATIONS: chest pain TECHNIQUE: One view of the chest was acquired. COMPARISON: [facility], CT, CT ANGIO CHEST PE PROTOCOL, 11/11/2020, 18:05. [facility], CR, XR CHEST 2V, 04/11/2020, 8:45. [facility], CR, CHEST 2 VIEW, 10/30/2013, 12:27. FINDINGS: Surgical changes and devices: None. Lungs and pleura: Mild patchy airspace opacity bilaterally, right greater than left. Emphysematous change. Suspect pulmonary fibrosis. No pleural effusions or pneumothorax. Mediastinum: Mediastinal contours appear normal. Heart size is normal. Bones and chest wall: No suspicious bony lesions. Overlying soft tissues appear unremarkable. IMPRESSION: Mild patchy airspace opacity bilaterally. Findings could be seen in atypical pneumonia. Dictated by: Triston Cabello M.D. on 11/18/2020 at 15:45 Approved by: Triston Cabello M.D. on 11/18/2020 at 15:48
[2020-11-18 16:17] LABS: Add Manual Diff / Slide Review NO; Basophils Absolute Auto 100 /uL (0-100); Basophils Percent Auto 1.2 % (0-2); Eosinophils Absolute Auto 400 /uL (0-450); Hematocrit 29.1 % (36-46); Hemoglobin 9.9 g/dL (12.0-16.0); Lymphocytes Absolute Auto 2700 /uL (1100-4500); Lymphocytes Percent Auto 31.4 % (25-40); Mean Corpuscular HGB Conc 34.1 % (30-36); Mean Corpuscular Hemoglobin 31.9 PG (26-34); Mean Corpuscular Volume 93.4 fL (80-100); Monocytes Absolute Auto 800 /uL (0-900); Monocytes Percent Auto 9.5 % (3-14); Neutrophils Absolute Auto 4600 /uL (1500-7000); Neutrophils Percent Auto 52.9 % (50-75); Platelet Count 476 X10^3/uL (150-400); Red Blood Cell Count 3.11 X10^6/uL (4.0-5.2); Red Cell Distribution Width 14.2 % (11.6-14.8); White Blood Cell Count 8.6 X10^3/uL (4.5-11.0)
[2020-11-18 16:22] LABS: INR 1.1 (0.9-1.3)
[2020-11-18 16:24] LABS: PTT Partial Thromboplastin Tim 38 SECONDS (26.4-36.2)
[2020-11-18 16:31] LABS: Alanine Aminotransferase 14 IU/L (<35); Albumin 3.7 g/dL (3.5-5.0); Albumin Globulin Ratio 1.3 (1.0-2.8); Alkaline Phosphatase 97 U/L (38-126); Aspartate Aminotransferase 25 IU/L (14-36); BUN Creatinine Ratio 13.3 (6-22); Bilirubin Total 0.5 mg/dL (0.2-1.3); Blood Urea Nitrogen 8 mg/dL (7-17); Calcium 9.3 mg/dL (8.4-10.2); Carbon Dioxide 25 mmol/L (22-32); Chloride 105 mmol/L (98-107); Creatine Kinase 35 U/L (30-135); Estimated Glomerular Filt Rate > 60.0 mL/min (>60); Globulin 2.8 g/dL (1.7-4.1); Glucose 80 mg/dL (80-110); HEMOLYSIS < 15 (0-50); Lipase 17 U/L (23-300); Potassium 4.1 mmol/L (3.4-5.1); Sodium 136 mmol/L (137-145); Total Protein 6.5 g/dL (6.3-8.2)
[2020-11-18 16:42] LABS: Troponin I < 0.012 ng/mL (0.01-0.034)
[2020-11-18 18:11] LABS: COVID19 -Nasal RAPID Negative (Negative)
--- NOTE | 2020-11-18 18:20 | ED_ITS ---
HPI - General Adult General Chief complaint: Weakness Stated complaint: heart rate is 'not good',sodium low Time Seen by Provider: 11/18/20 17:04 Source: patient Mode of arrival: Wheelchair Limitations: no limitations History of Present Illness HPI narrative: Patient is a 80-year-old female who approximately 2 weeks ago underwent a right total knee arthroplasty. Since that time she had been readmitted to the hospital for issues with constipation. During hospital stay she was told that her heart rate was low. She had an echocardiogram that was performed. She was instructed that she needed to follow-up with her primary doctor to have a referral to see Cardiology. Since she was discharged from the hospital earlier this week she has felt very fatigued. States that he gets short of breath with exertion. His lightheaded. She has had low sodium in the past and she is concerned about that. She went to see her primary doctor on [facility] who sent her to the emergency department for further evaluation. Related Data Home Medications Medication Instructions Recorded Confirmed docusate sodium [Stool Softener] 100 mg PO DAILY 11/02/20 11/11/20 duloxetine 30 mg PO DAILY 11/02/20 11/11/20 ferrous sulfate [Iron (ferrous 325 mg PO Q OTHER DAY 11/02/20 11/11/20 sulfate)] hydroxyzine HCl 25 - 50 mg PO Q4H PRN 11/02/20 11/11/20 melatonin 10 mg PO BEDTIME 11/02/20 11/11/20 omeprazole 40 mg PO BID 11/02/20 11/11/20 polyethylene glycol 3350 [Miralax] 17 g PO DAILY 11/02/20 11/11/20 Previous Rx's Medication Instructions Recorded aspirin 81 mg PO BID #60 tab 11/08/20 bisacodyl 10 mg NE DAILY PRN #30 ea 11/13/20 hydrocortisone 1 applic NE DAILY #28.4 g 11/13/20 oxycodone 5 mg PO Q6HR #60 tab 11/13/20 sennosides [senna] 17.2 mg PO BID #30 tab 11/13/20 Allergies Allergy/AdvReac Type Severity Reaction Status Date / Time Phenothiazines Allergy Severe THROAT Verified 11/18/20 14:56 [PHENOTHIAZINES] SWELLS SHUT codeine [CODEINE] Allergy Intermediate ITCHING-OK Verified 11/18/20 14:56 if takes benadryl with it latex Allergy Facial Verified 11/18/20 14:56 swelling Review of Systems Constitutional Constitutional: Reports fatigue, Denies fever(s), Reports lethargy, Reports malaise and Reports weakness ENT Ears, Nose, Mouth, and Throat: Reports disequilibrium Cardiovascular Cardiovascular: Denies chest pain, Denies syncope and Reports dyspnea on exertion Comments: Slow heart rate Respiratory Respiratory: Reports dyspnea on exertion Gastrointestinal Gastrointestinal: Reports constipation Musculoskeletal Comments: Right knee pain Integumentary/Breasts Skin/Breast: Denies rash Neurologic Neurologic: Denies syncope, Reports disequilibrium and Reports weakness Endocrine Endocrine: Reports fatigue Hematologic/Lymphatic On Anticoagulants: No Allergic/Immunologic Allergic/Immunologic: Denies urticaria Patient History Medical History Constipation Depression Hearing loss in left ear Heartburn Insomnia Primary osteoarthritis of right knee Trigeminal neuralgia of left side of face (~11/2019) Surgical History (Updated 11/11/20 @ 22:29 by CHARLES Mane) H/O bursectomy H/O repair of rotator cuff History of cholecystectomy History of hysterectomy History of knee surgery Family History (Updated 11/11/20 @ 22:04 by CHARLES Mane) Mother Old age Father Myocardial infarction Social History household members: family Smoking Status: Former smoker alcohol intake: never Smoking Status: Former smoker Substance Use Type: does not use Exam Initial Vital Signs Initial Vital Signs: Vital Signs Temperature 97.7 F 11/18/20 14:54 Pulse Rate 46 L 11/18/20 14:54 Respiratory Rate 16 11/18/20 14:54 Blood Pressure 168/70 H 11/18/20 14:54 Pulse Oximetry 98 11/18/20 14:54 Const General: cooperative and comfortable Limitations: mental status not altered HENMT Head: normal to inspection and normocephalic Resp Effort & Inspection: normal respiratory effort Auscultation: clear to auscultation bilaterally Cardio Rate: bradycardic Rhythm: regular rhythm GI Inspection: non-distended Skin Other: Bruising/ecchymosis around her right knee consistent with her stated history of knee replacement Neuro General: patient alert, patient awake and patient oriented x3 Cognition: normal cognition Speech: speech normal Extrem General: normal to inspection and capillary refill normal Psych Appearance: grossly normal and well kempt Scores GCS Dianelys coma scale eye opening: Spontaneous Dianelys coma scale verbal response: Orientated [place] coma scale motor response: Obey commands Dianelys coma scale total score: 15 Course Orders Ordered: Discontinued Medications Oxycodone/Acetaminophen (Oxycodone/Acetaminophen 5/325 Tablet) 1 tab PO NOW ONE Stop: 11/18/20 18:22 Last Admin: 11/18/20 19:12 Dose: Not Given Documented by: RAFAELTONLisy Oxycodone/Acetaminophen (Oxycodone/Acetaminophen 5/325 Tablet) 1 tab PO NOW ONE Stop: 11/18/20 19:04 Last Admin: 11/18/20 19:05 Dose: 1 tab Documented by: PERCY Oxycodone/Acetaminophen (Oxycodone/Apap 5/325 Prepack) 1 bottle MISC SEEINSTR ONE Stop: 11/18/20 21:45 Last Admin: 11/18/20 21:54 Dose: 1 bottle Documented by: ERNIE Vital Signs Vital signs: Vital Signs - 8 hr 11/18/20 21:27 11/18/20 21:30 Pulse Rate 46 L 47 L Respiratory Rate 22 15 Blood Pressure 144/86 H Pulse Oximetry 97 97 Medical Decision Making Lab Data Lab results reviewed: Yes I reviewed the patient's lab results. Result diagrams: 11/18/20 16:05 11/18/20 16:05 Labs: Lab Results 11/18/20 11/18/20 11/18/20 Range/Units 16:05 16:05 16:05 WBC 8.6 (4.5-11.0) X10^3/uL RBC 3.11 L (4.0-5.2) X10^6/uL Hgb 9.9 L (12.0-16.0) g/dL Hct 29.1 L (36-46) % MCV 93.4 (80-100) fL MCH 31.9 (26-34) PG MCHC 34.1 (30-36) % RDW 14.2 (11.6-14.8) % Plt Count 476 H (150-400) X10^3/uL Neut % (Auto) 52.9 (50-75) % Lymph % (Auto) 31.4 (25-40) % [place] % (Auto) 9.5 (3-14) % Eos % (Auto) 5.0 H (2-4) % Baso % (Auto) 1.2 (0-2) % Neut # (Auto) 4600 (6467-4702) /uL Lymph # (Auto) 2700 (3464-0342) /uL [place] # (Auto) 800 (0-900) /uL Eos # (Auto) 400 (0-450) /uL Baso # (Auto) 100 (0-100) /uL PT 12.0 (10.1-12.7) SECONDS INR 1.1 (0.9-1.3) APTT 38 H (26.4-36.2) SECONDS Sodium 136 L (137-145) mmol/L Potassium 4.1 (3.4-5.1) mmol/L Chloride 105 (98-107) mmol/L Carbon Dioxide 25 (22-32) mmol/L BUN 8 (7-17) mg/dL Creatinine 0.60 (0.52-1.04) mg/dL Estimated GFR > 60.0 (>60) mL/min BUN/Creatinine Ratio 13.3 (6-22) Glucose 80 (80-110) mg/dL Calcium 9.3 (8.4-10.2) mg/dL Total Bilirubin 0.5 (0.2-1.3) mg/dL AST 25 (14-36) IU/L ALT 14 (<35) IU/L Alkaline Phosphatase 97 (38-126) U/L Total Creatine Kinase 35 (30-135) U/L CK-MB (CK-2) TNP CK-MB (CK-2) Rel Index TNP Troponin I < 0.012 (0.01-0.034) ng/mL Total Protein 6.5 (6.3-8.2) g/dL Albumin 3.7 (3.5-5.0) g/dL Globulin 2.8 (1.7-4.1) g/dL Albumin/Globulin Ratio 1.3 (1.0-2.8) Lipase 17 L (23-300) U/L TSH (0.47-4.68) uIU/mL Free T4 (0.78-2.19) ng/dL Free T3 (2.77-5.27) pg/mL SARS-CoV-2 (PCR) (Negative) 11/18/20 11/18/20 11/18/20 Range/Units 16:05 16:05 17:42 WBC (4.5-11.0) X10^3/uL RBC (4.0-5.2) X10^6/uL Hgb (12.0-16.0) g/dL Hct (36-46) % MCV (80-100) fL MCH (26-34) PG MCHC (30-36) % RDW (11.6-14.8) % Plt Count (150-400) X10^3/uL Neut % (Auto) (50-75) % Lymph % (Auto) (25-40) % [place] % (Auto) (3-14) % Eos % (Auto) (2-4) % Baso % (Auto) (0-2) % Neut # (Auto) (4695-9589) /uL Lymph # (Auto) (6637-9015) /uL [place] # (Auto) (0-900) /uL Eos # (Auto) (0-450) /uL Baso # (Auto) (0-100) /uL PT (10.1-12.7) SECONDS INR (0.9-1.3) APTT (26.4-36.2) SECONDS Sodium (137-145) mmol/L Potassium (3.4-5.1) mmol/L Chloride (98-107) mmol/L Carbon Dioxide (22-32) mmol/L BUN (7-17) mg/dL Creatinine (0.52-1.04) mg/dL Estimated GFR (>60) mL/min BUN/Creatinine Ratio (6-22) Glucose (80-110) mg/dL Calcium (8.4-10.2) mg/dL Total Bilirubin (0.2-1.3) mg/dL AST (14-36) IU/L ALT (<35) IU/L Alkaline Phosphatase (38-126) U/L Total Creatine Kinase (30-135) U/L CK-MB (CK-2) CK-MB (CK-2) Rel Index Troponin I (0.01-0.034) ng/mL Total Protein (6.3-8.2) g/dL Albumin (3.5-5.0) g/dL Globulin (1.7-4.1) g/dL Albumin/Globulin Ratio (1.0-2.8) Lipase (23-300) U/L TSH 8.80 H (0.47-4.68) uIU/mL Free T4 1.10 (0.78-2.19) ng/dL Free T3 2.98 (2.77-5.27) pg/mL SARS-CoV-2 (PCR) Negative (Negative) Imaging Data Chest x-ray: Radiologist's Impression: [address] [id number] ReportSigned Patient: Janny Madrigal LMR#: [id number]: [id number]:[id number]/Sex: 80 / FDate of Service: 11/18/20Loc: EDAccession Number: [id number] Procedure: XR chest 1V Ordering Provider: Rubi Garcia D.O. PROCEDURE: XR CHEST 1V INDICATIONS: chest pain TECHNIQUE: One view of the chest was acquired. COMPARISON: [facility], CT, CT ANGIO CHEST PE PROTOCOL, 11/11/2020, 18:05. [facility], CR, XR CHEST 2V, 04/11/2020, 8:45. [facility], CR, CHEST 2 VIEW, 10/30/2013, 12:27. FINDINGS: Surgical changes and devices: None. Lungs and pleura: Mild patchy airspace opacity bilaterally, right greater than left. Emphysematous change. Suspect pulmonary fibrosis. No pleural effusions or pneumothorax. Mediastinum: Mediastinal contours appear normal. Heart size is normal. Bones and chest wall: No suspicious bony lesions. Overlying soft tissues appear unremarkable. IMPRESSION: Mild patchy airspace opacity bilaterally. Findings could be seen in atypical pneumonia. Dictated by: Triston Cabello M.D. on 11/18/2020 at 15:45 Approved by: Triston Cabello M.D. on 11/18/2020 at 15:48 ECG Data Attestation: I personally reviewed and interpreted this ECG as follows: Prior ECG tracings: available for review Interpretation: Sinus bradycardia Ventricular rate of 43 2:1 Mobitz block Normal axis MDM Narrative Medical decision making narrative: Patient is well-appearing. The findings surrounding her right knee are expected for her current postoperative state. She has been on pain medication. The echocardiogram that was performed during her last stay is relatively unremarkable. She was bradycardic during that time. She has had some lightheadedness. Some dyspnea on exertion and generally not feeling very well. Her EKG does show a 2-1 AV block. This could potentially be Mobitz type 1 or type 2. I did discuss the case with Dr. Louise who is on-call for Cardiology. I did send copy the EKG to him who agrees with this. He states that unless the patient is passing out or is on stable cardiology would not consider putting in an emergent pacemaker. Patient is not on any wilman blocking agents but she is on opioid pain medication for her knee surgery which could cause bradycardia. He recommended having her stop this medication to see if it did not improve her symptoms. He stated that patient can be discharged home and follow-up with primary doctor on Saturday for repeat EKG and if her symptoms worsen or continue then she could see Cardiology/electrophysiology as an outpatient. He also recommended checking a thyroid level. This was performed. Her TSH was elevated suggesting a hypothyroidism however her free T4 and free T3 were within normal limits. This is consistent with the subclinical hypothyroidism. This could be adding to her issues. I did discuss this with her and her family at bedside informed that she did need follow-up with her primary doctor regarding this as well. Patient has had issues with constipation and then diarrhea now with constipation again. This is most likely related to her opioid pain medication that she is on. She is in somewhat of a difficult situation given the fact that she is only 2 weeks status post a right total knee replacement and could very well benefit from opioid pain medicine however this could also be causing her other issues as well. She states she cannot take tramadol. She is already taking 325 mg Tylenol 3 times a day. Informed her that she could increase this to 625 mg 3 times a day. Seems that her bradycardia has been happening for some time now. It was noted during her last admission to the hospital which is what prompted the echocardiogram. Given the discussion with Cardiology recommendations are for patient to be discharged home. To try to wean off the opioids as much as possible. To discuss the hypothyroidism with her primary provider and to discuss the bradycardia with her primary provider early next week about a referral to see Cardiology as an outpatient. The patient was given strict return precautions. She and her family did seem somewhat upset with this stating that they thought that she needed admitted to the hospital. He did mention that they were concerned that since she was not admitted to the hospital that insurance would not pay for her visit today. I informed them that unfortunately I had no recommendations regarding this is a did not know the specifics of her insurance plan. Tried to reassure them that had discussions with specialist regarding her symptoms and that they recommended follow-up as an outpatient and I do not think this is unreasonable as well. They were informed that they could return to the emergency department for further evaluation if her symptoms worsen. She was given a prepack of pain medication [place] and she did not have her normal pain medication with her Discharge Plan Departure Patient Disposition: Home Clinical Impression: Bradycardia, Subclinical hypothyroidism Instructions: DI for Bradycardia Activity Restrictions/Additional Instructions: Recommend that you continue all of your medications as directed. You can increase the Tylenol/acetaminophen to 2 tablets (650 mg) 3 times a day. Also recommend that you try your best to decrease your opioid use as this could potentially be causing your low heart rate. On Saturday contact your primary provider for a follow-up. Return to the emergency department for any new or worsening symptoms Prescriptions: No Action omeprazole 40 mg Capsule,Delayed Release(Dr/Ec) 40 mg PO BID RF: 0 ferrous sulfate [Iron (ferrous sulfate)] 325 mg (65 mg iron) Tablet 325 mg PO Q OTHER DAY RF: 0 docusate sodium [Stool Softener] 100 mg Capsule 100 mg PO DAILY RF: 0 hydroxyzine HCl 25 mg Tablet 25 - 50 mg PO Q4H PRN (Reason: Itching) RF: 0 polyethylene glycol 3350 [Miralax] 17 gram/dose Powder 17 g PO DAILY RF: 0 duloxetine 30 mg Capsule,Delayed Release(Dr/Ec) 30 mg PO DAILY RF: 0 melatonin 10 mg Capsule 10 mg PO BEDTIME RF: 0 aspirin 81 mg Tablet,Delayed Release (Dr/Ec) 81 mg PO BID Qty: 60 RF: 0 sennosides [senna] 8.6 mg Tablet 17.2 mg PO BID Qty: 30 RF: 0 bisacodyl 10 mg suppository 10 mg NE DAILY PRN (Reason: constipation) Qty: 30 RF: 0 hydrocortisone 1 % cream with perineal applicator 1 applic NE DAILY Qty: 28.4 RF: 0 oxycodone 5 mg Tablet 5 mg PO Q6HR Qty: 60 RF: 0 Referrals: Roseann Dietrich MD [Primary Care Provider] -
[2020-11-18] MEDS: OXYCODONE/ACETAMINOPHEN 5/325 TABLET 1 TAB PO (19:05)
[2020-11-18 20:15] LABS: Free T3, Triiodothyronine Free 2.98 pg/mL (2.77-5.27)
[2020-11-18] MEDS: OXYCODONE/APAP 5/325 PREPACK 1 BOTTLE MISC (21:54)
== END 2020-11-18 22:11 | disposition home or self-care (01) ==
PROVIDERS: Emergency Medicine; Emergency Provider Emergency Medicine; PCP Family Medicine
DX: E03.9 Hypothyroidism, unspecified (principal); R00.1 Bradycardia, unspecified
CPT/HCPCS: 71045; 80053; 82550; 83690; 84439; 84443; 84481; 84484; 85025; 85610; 85730; 87635; 93005; 93010; 99284; C9803

== ENCOUNTER → 2021-06-30 08:17 | Outpatient (CLI) | payer BC, SELFPAY ==
[2020-11-11 20:00] VITALS: BMI 28.0
[2021-06-30 21:56] LABS: COVID19 - ORCAS (NP or Nasal) Negative (Negative)
== END ==
PROVIDERS: PCP Family Medicine; Visit Provider Physician Assistant Medical
DX: Z20.822 Contact with and (suspected) exposure to COVID-19 (principal)
CPT/HCPCS: U0003

== ENCOUNTER 2021-07-04 09:30 | Inpatient (IN) | payer MEDICARE, BC, SELFPAY ==
[2020-11-11 20:00] VITALS: BMI 28.0
[2021-06-26 12:49] VITALS: BMI 25.0
[2021-07-03] VITALS (16 sets, daily range): BP systolic 66–148; BP diastolic 27–77; PULSE 60–75; RESP 10–19; TEMP 35.7–36.6; O2SAT 92–100; BMI 25.0
--- NOTE | 2021-07-03 06:00 | DI.RAD.S_ITS ---
PROCEDURE: XR KNEE LT 1TO2V INDICATIONS: postop prosthesis placement TECHNIQUE: 2 view(s) of the knee acquired. COMPARISON: [facility], CR, XR KNEE 4+ VIEWS LEFT, 04/13/2021, 14:48. [facility], CR, XR KNEE 4+ VIEWS RIGHT, 03/02/2021, 15:13. [facility], CR, XR KNEE RT 1TO2V, 11/07/2020, 16:06. FINDINGS: Bones: Patient is status post knee joint arthroplasty. Hardware components are in expected positions. Visualized bony structures are intact. Soft tissues: Overlying postoperative changes are noted. IMPRESSION: Expected immediate postoperative appearance of left TKA. Dictated by: Jose A Mei [facility] Interpreted: Trenton Santiago MD on 07/03/2021 at 15:01 Transcribed by: TONG on 07/03/2021 at 15:02 Approved by: Trenton Santiago M.D. on 07/03/2021 at 16:26
[2021-07-03] MEDS: MELOXICAM 7.5 MG TABLET 15 MG PO (09:15)
[2021-07-03] MEDS: CELECOXIB 200 MG CAPSULE PO (09:15)
[2021-07-03] MEDS: ACETAMINOPHEN 325 MG TABLET 975 MG PO (09:15)
[2021-07-03] MEDS: PREGABALIN 75 MG CAPSULE PO (09:16)
--- NOTE | 2021-07-03 10:10 | PM.PREOP ---
Pre-operative Note COVID-19 COVID-19 status: Negative Result date/Date tested (Pos, Neg/Pending): 06/30/21 Interval Note History & Physical reviewed/Exam performed by Physician: Yes Changes to H&P: No
--- NOTE | 2021-07-03 10:35 | PM.OP.1 ---
Operative Date/Time/Diagnoses Date of procedure: 07/03/21 Time of procedure: 13:00 Pre-op diagnosis: Left knee osteoarthritis Post-op diagnosis: same Procedure & Clinicians Procedure: Left total knee replacement Same procedure as scheduled: Yes Indications: The patient has had progressively worsening left knee pain with radiographic changes consistent with arthritis. Non-operative management has failed and the patient has requested total knee replacement. The risks, benefits and alternatives to surgery were discussed with the patient prior to proceeding. Risks discussed included, but were not limited to, failure to relieve pain, stiffness, infection, nerve damage, deep venous thrombosis, pulmonary embolism, stroke, coma, heart attack, permanent paralysis and , as well as the potential need for eventual revision of the prosthetic. Surgeon: Nash Gregorio Assembler Wet Wash: Keegan Tuttle Click Yes if Unassisted: No Anesthesia Type: General, Spinal and Local Operative Notes Findings: Moderately severe lateral compartment osteoarthritis with mild patellofemoral change. Closure Type: primary Specimen(s): none sent Prosthetic devices, grafts, tissues, transplants, or devices: Implants used in this procedure were manufactured by the [employer] and [employer] and included the BCS II Journey total knee replacement with a size 4 cobalt chromium femur, a size 3 non porous tibial base plate, a 9 mm cross-linked tibial insert and a 32 mm oval Hodan II patella. Applied: implant(s) Estimated Blood Loss (mL): 25 Blood products transfused: none Tourniquet time (min): 47 Procedure in detail: The patient was seen in the pre-operative area, where the left knee was identified as the operative site and this was marked with my initials. The patient received pre-operative antibiotics, and was taken to the operating room and placed on the operative table in the supine position. After satisfactory anesthesia, a time study technician out? was performed. The left leg was encircled with a tourniquet about the proximal thigh, and the leg was prepared from the toes to the tourniquet with ChloroPrep in the usual fashion and draped through sterile drapes. The leg was elevated and exsanguinated with Eschmark bandage and the tourniquet inflated to 250 mmHg pressure. The knee was approached through an approximately 15 cm incision centered over the patella and carried into the knee through a medial parapatellar arthrotomy. The anterior osteophytes and soft tissues were removed. The rotational landmarks of [place]'s line and the transepicondylar axis were marked on the femur with electrocautery, and intramedullary guide holes for the femur and tibia were created. The distal femoral cut was made in 6 degrees of valgus using the intramedullary guide at the primary cut setting. The proximal tibial cut was then made using the intramedullary guide, taking 9 mm of bone off the less involved side. The extension gap was checked and the rotation of the femoral component confirmed with the gap balancing blocks. The anterior, posterior and chamfer cuts were then made. The posterior osteophytes and soft tissues were then removed. The posterior capsule was injected with part of a mixture of 60 ml 0.25% Marcaine mixed with 20 ml Exparel and 4 mg of morphine for post-operative pain control. The remainder of this mixture was injected into the capsule and subcutaneous tissues during cement curing. The tibia was prepared with the rotation set by an extra medullary guide. Trial tibial and femoral components were then placed and the intercondylar notch cut through the femoral trial. Range of motion was 0-135 degrees, with good stability throughout the range. The patella was then cut to accommodate the patellar prosthetic. There was no need for a lateral release. The trials were then removed, and the femoral hole plugged with a bone plug. The bone was prepared with pulsatile lavage, and dried with a sponge. Cement was applied and the final prosthetics placed. Excess cement was removed during and after cement curing. After confirming there was no extruded cement posteriorly, the final tibial insert was placed. The knee was copiously irrigated and the tourniquet deflated. Hemostasis was obtained. The capsule was closed with interrupted # 2 polyester sutures. The subcutaneous layer was closed with 3-0 Vicryl, and the skin with a running 3-0 V-Lock suture and Dermabond. An Aquacel Ag dressing was applied and the patient was taken to recovery having tolerated the procedure well. Complications: none Post-operative Condition: stable Disposition: PACU Plan for aftercare: The patient will be maintained on a standard total knee replacement protocol with weight bearing as tolerated. The patient will receive aspirin and sequential compression devices for DVT prophylaxis. The patient will be discharged home when safe for the home environment.
[2021-07-03] MEDS: CEFAZOLIN 1 GM VIAL 2 GM IV (11:35)
[2021-07-03] MEDS: TRANEXAMIC ACID 1,000 MG VIAL 1000 MG INJ ×2 (11:50→12:41)
--- NOTE | 2021-07-03 11:55 | SUR.OPER ---
Supine on padded OR bed. Pillow under head, arms secured on padded armboards <90 degree abduction. Safety belt across torso. Non-operative leg secured with tape over blanket over lower leg. Operative leg secured in DeMayo/Bentley/Nathe positioner. Foam padded brace at thigh of operative leg.
[2021-07-03] MEDS: BUPIVACAINE LIPOSOME 266 MG/20 ML VIAL INJ (12:02)
[2021-07-03] MEDS: MORPHINE 4 MG/ML INJ INJ (12:03)
[2021-07-03] MEDS: BUPIVACAINE 0.25% (PF) 60 ML, EPINEPHrine 0.3 MG INJ (12:04)
[2021-07-03] MEDS: LACTATED RINGERS 1,000 ML 42 ML IV (14:05)
[2021-07-03] MEDS: LACTATED RINGERS 1,000 ML 100 ML IV (14:46)
--- NOTE | 2021-07-03 15:06 | PC.NURSE ---
Patient received from PACU to room 210, oriented to room and call light. Denies pain or other complaint at this time. Aquacel with isrrael wrap and ice packs to left knee, patient able to bend knee and states she feels some sensation of SCD'd on both legs. Monitor for void post op. IV fluids as ordered. Advance diet as tolerated, denies n/v. Call light within reach, bed alarm activated for moderate risk fall precautions. COntinue to monitor
[2021-07-03] MEDS: ACETAMINOPHEN 325 MG TABLET 650 MG PO ×2 (15:19→20:49)
[2021-07-03] MEDS: IBUPROFEN 400 MG TABLET PO ×2 (15:19→20:48)
--- NOTE | 2021-07-03 16:07 | PT-IP ANOTE ---
Met with pt to gather PLOF. She did not have sufficient motor control to conduct evaluation and agreed to work with PT in the morning.
[2021-07-03] MEDS: MELATONIN 3 MG TABLET 9 MG PO (20:48)
[2021-07-03] MEDS: ASPIRIN EC 81 MG TABLET PO (20:48)
[2021-07-03] MEDS: hydrOXYzine pamoate 25 MG CAPSULE PO (20:48)
[2021-07-03] MEDS: GABAPENTIN 100 MG CAPSULE 200 MG PO (20:48)
[2021-07-03] MEDS: DOCUSATE 100 MG CAPSULE PO (20:49)
[2021-07-03] MEDS: PREGABALIN 50 MG CAPSULE PO (20:49)
[2021-07-03] MEDS: OXYCODONE IR 5 MG TABLET PO (20:49)
[2021-07-03] MEDS: polyethylene glycoL 3350 17 GM POWD.PACK PO (20:50)
[2021-07-03] MEDS: diphenhydrAMINE 25 MG TABLET PO (22:23)
[2021-07-04] VITALS (13 sets, daily range): BP systolic 72–162; BP diastolic 31–70; PULSE 68–79; RESP 12–20; TEMP 35.7–36.5; O2SAT 90–100
[2021-07-04] MEDS: IBUPROFEN 400 MG TABLET PO ×6 (00:45→20:20)
[2021-07-04] MEDS: LACTATED RINGERS 1,000 ML 100 ML IV (00:46)
--- NOTE | 2021-07-04 01:20 | PC.NURSE ---
Addendum entered by Nancy Donis R.N. 07/04/21 06:47: Kang in lab called at 0633 to report a critical INR of 8.4. Provider on-call, Dr. Augustine was paged at 0640 and a call was returned at 0645. No new orders given, provider stated it will be addressed in the morning. Charge nurse notified at 0635. Original Note: Late entry: Patient was requesting medication for itching when this RN was giving patient her 2100 medications. Patient was informed that she was getting Vistaril 25mg which should help. Patient stated she still wanted something but was okay with waiting to see if the Vistaril helped. Patient called continued to ask for something for the itching. on call provider, Dr. Sorensen was called at 2145 and telephone orders were given for 25mg Benadryl PO q4-6 hrs PRN for itching. Patient was given 25mg Benadryl at 2223 and lotion was also applied. Patient resting comfortable in bed with call light within reach. At 0045 patient got up to use the bathroom and this RN noticed that her IV site was leaking. The infusion was stopped, cap was changed, and dressing was cleaned and reapplied. Patient tolerated well and IV infusion was restated. No other complaints at this time.
[2021-07-04 05:44] LABS: Hematocrit 33.9 % (36-46); Hemoglobin 11.5 g/dL (12.0-16.0)
[2021-07-04] MEDS: PANTOPRAZOLE DR 20 MG TABLET PO (06:15)
--- NOTE | 2021-07-04 06:49 | PC.NURSE ---
Late entry: Patient was requesting medication for itching when this RN was giving patient her 2100 medications. Patient was informed that she was getting Vistaril 25mg which should help. Patient stated she still wanted something but was okay with waiting to see if the Vistaril helped. Patient called continued to ask for something for the itching. on call provider, Dr. Sorensen was called at 2145 and telephone orders were given for 25mg Benadryl PO q4-6 hrs PRN for itching. Patient was given 25mg Benadryl at 2223 and lotion was also applied. Patient resting comfortable in bed with call light within reach. At 0045 patient got up to use the bathroom and this RN noticed that her IV site was leaking. The infusion was stopped, cap was changed, and dressing was cleaned and reapplied. Patient tolerated well and IV infusion was restated. No other complaints at this time. at 0530 patient was brought IS and was educated on use.
[2021-07-04] MEDS: DOCUSATE 100 MG CAPSULE PO ×2 (08:42→20:20)
[2021-07-04] MEDS: ACETAMINOPHEN 325 MG TABLET 650 MG PO ×3 (08:42→20:19)
[2021-07-04] MEDS: FERROUS SULFATE 325 MG TABLET PO (08:42)
[2021-07-04] MEDS: ASPIRIN EC 81 MG TABLET PO ×2 (08:42→20:20)
[2021-07-04] MEDS: DULOXETINE 30 MG CAPSULE PO (08:42)
--- NOTE | 2021-07-04 08:58 | PM.PNPO.1 ---
Subjective Subjective Date Patient Seen: 07/04/21 Time Patient Seen: 08:58 Interval history: The patient is feeling lightheaded and like she is ?going to pass out this morning.? She is 1 day status post left total knee arthroplasty. She had a previous right total knee arthroplasty in October of 2020 and experienced a bradycardia and had a subsequent pacemaker placed. She had cardiac clearance prior to this current surgery. Exam Vital Signs (past 8 hours): - 07/04/21 05:00 07/04/21 08:31 Temperature 97.6 F 97.1 F L Pulse Rate 79 78 Respiratory Rate 18 12 Blood Pressure 118/58 L 98/52 L Pulse Oximetry 94 93 Oxygen Delivery Method Room Air Oxygen Flow Rate 0 Narrative Exam Narrative: 80-year-old female, sitting upright in her chair. She is alert and oriented x3. She is having difficulty keeping conversation with me. Objective Labs Result Diagrams: 07/04/21 05:25 Labs: Laboratory Results - last 24 hr 07/04/21 05:25 Hgb 11.5 L Hct 33.9 L PFSH Medical History CAD (coronary artery disease) Constipation Depression Diastolic heart failure Family history of dementia Hearing loss in left ear Heartburn HTN (hypertension) Insomnia Pacemaker (11/24/20) Pneumonia (11/24/20) Primary osteoarthritis of right knee Trigeminal neuralgia of left side of face (~11/2019) Surgical History H/O bursectomy H/O repair of rotator cuff History of cholecystectomy History of hysterectomy History of knee surgery 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) Family History Mother Old age Father Myocardial infarction Social History household members: family Smoking Status: Former smoker alcohol intake: current Assessment & Plan Post-op Postoperative Procedures: Procedures Operation Date: 07/03/21 11:15 Actual Procedure Side Surgeon p Total Knee Arthroplasty Left Nash Gregorio MD Postoperative day: 1 Postoperative status narrative: Status post left total knee arthroplasty -possible orthostatic hypotension versus cardiac issues: History of pacemaker, currently feeling like she is ?going to pass out? Postoperative plan narrative: -nursing team leave the patient in bed with her legs elevated -blood pressure was 78/32 and pulse was 74. Current leg getting a bolus -stat EKG and troponin levels were ordered -hospitalist consult ordered -once patient is stabilized and feeling better, mobilize with PT. Weightbearing as tolerated with front wheel walker -continue with current pain management and DVT prophylaxis -DC home once stabilized, likely in 1-2 days
[2021-07-04] MEDS: SODIUM CHLORIDE 0.9% 1,000 ML 1000 ML IV (09:02)
[2021-07-04 09:53] LABS: Alanine Aminotransferase 23 IU/L (<35); Albumin Globulin Ratio 1.3 (1.0-2.8); Alkaline Phosphatase 72 U/L (38-126); Aspartate Aminotransferase 48 IU/L (14-36); BUN Creatinine Ratio 21.5 (6-22); Bilirubin Total 0.6 mg/dL (0.2-1.3); Blood Urea Nitrogen 14 mg/dL (7-17); Calcium 8.1 mg/dL (8.4-10.2); Carbon Dioxide 24 mmol/L (22-32); Chloride 97 mmol/L (98-107); Creatine Kinase 125 U/L (30-135); Estimated Glomerular Filt Rate > 60.0 mL/min (>60); Globulin 2.3 g/dL (1.7-4.1); Glucose 91 mg/dL (80-110); HEMOLYSIS < 15 (0-50); Potassium 4.2 mmol/L (3.4-5.1); Sodium 125 mmol/L (137-145); Total Protein 5.3 g/dL (6.3-8.2)
[2021-07-04 10:05] LABS: Troponin I < 0.012 ng/mL (0.01-0.034)
[2021-07-04 10:08] LABS: CKMB % Relative Index 1.1 % (1.5-5.0); Creatine Kinase MB 1.42 ng/mL (<2.37)
[2021-07-04] MEDS: SODIUM CHLORIDE 1,000 MG TABLET 1000 MG PO (10:37)
--- NOTE | 2021-07-04 11:05 | PT.IIE ---
Current Diagnoses Unilateral primary osteoarthritis, left knee (07/04/21) Surgery Performed Operation Date: 07/03/21 11:15 Actual Procedures p Total Knee Arthroplasty(Left) - Nash Gregorio MD Medical History (Last Reviewed 07/04/21 @ 09:05 by Anabela Lund PA-C) CAD (coronary artery disease) Constipation Depression Diastolic heart failure Family history of dementia Hearing loss in left ear Heartburn HTN (hypertension) Insomnia Pacemaker (11/24/20) Pneumonia (11/24/20) Primary osteoarthritis of right knee Trigeminal neuralgia of left side of face (~11/2019) Physical Therapy Inpatient Evaluation/Re-Eval M1 PT/OT-IP Prior Functional Status Start: 07/03/21 15:33 Freq: NEEDED Status: Active Protocol: Document 07/04/21 11:05 AB (Rec: 07/04/21 12: AB [email or web address]) Medical Review Prior Functional Status Medical History Reviewed Yes Communication Pt is able to make her needs known. Mobility and Gait pt stated that she is modified independent with all mobilities and ambulation without AD. Prior Functional Level (Other details) h/o R TKA october 2020. pt stated that 2 weeks after RTKA , she had pacemaker placement and went to SNF afterwards. Social History Household Members family Living Arrangements House Number of Floors (Floors) Two Floors Number of Stairs To Enter/Railing? pt stays on main level of the house has a ramp to enter Home Environment High Toilet,Tub/Shower,Ramp, Bidet Home Equipment Front Wheel Walker,Four Wheel Walker,Quad Cane,Tub Transfer Bench,Hand Held Shower,Grab Bars In Shower Employment Status Retired Additional Social History Comment Pt has an adjustable bed. She uses a door frame to steady herself getting on and off the toilet. pt also has a bidet. She live on [address] [facility] with her granddaughter, Kia, who is off work through the end of the year and able to assist. M2 PT-IP Current Condition Start: 07/03/21 15:33 Freq: NEEDED Status: Active Protocol: Document 07/04/21 11:05 AB (Rec: 07/04/21 12:21 AB [email or web address]) Physical Therapy Current Condition Current Condition Evaluation Date 07/04/21 Treatment Diagnosis s/p L TKA; difficulty in walking Onset Date 07/03/21 M3 PT-IP Subjective Start: 07/03/21 15:33 Freq: NEEDED Status: Active Protocol: Document 07/04/21 11:05 AB (Rec: 07/04/21 12:21 AB [email or web address]) Subjective Physical Therapy Visit Type Type Initial Evaluation Visit Start Time 11:05 Visit Stop Time 11:52 Total Visit Minutes 47 Number of SPRING PRODUCTION SUPERVISOR Visits 0 Physical Therapy Visit Comments Patient Comments agreeable to do PT Therapy Pain Assessment Pain When Pain Assessed During Mobility Pain Present Pain Present Pain Reported Location Left Knee Intensity 6 Scale Used Numeric (0 - 10) Pain Management Techniques Apply Cold,Modification of Treatment,Re-positioning, Timing of Activity with Medications M4 PT-IP Mobility and Gait Start: 07/03/21 15:33 Freq: NEEDED Status: Active Protocol: Document 07/04/21 11:05 AB (Rec: 07/04/21 12:21 [email or web address]) PT-Bed Mobility Assessment Supine to Sit Supine to Sit Standby Assistance PT-Transfer Assessment Sit to and From Stand Sit to and from Stand Moderate Assistance,1 Person Assistance,Use of Upper Extremities Equipment Transfer Assistive Device Gait Belt,Front Wheeled Walker Orthotic/Prosthetic Devices or Brace: No Transfers Transfer Destination Bedside Commode Transfer Technique Stand Step Pivot Transfer Ability Level of Assist Minimal Assistance,Moderate Assistance,1 Person Assistance ,Use of Upper Extremities Comments Mobility Comments pt with an episode of decrease BP with nurse this morning. BP monitored . BP in supine: 125/62 O2 sat 98 %, UT: 75. pt is sleepy but able to follow directions. pt completed supine to sit SBA. c/o dizziness. BP checked : 121/60. pt continues to c/o dizziness. BP checked after ~ 3 min of sittin/57. pt completed sit to stand mod A and cues and step transfer to bedside commode using FWW mod A and cues. BP checked after tranasfer: 129/58. pt stated that she has low sodium issues from before and stated that feeling of dizziness and weakness right now is the same as when her sodium is low. informed nurse . BP checked again: 107/56. Pt sat on bedside commode a few more minutes. nurse in room. BP prior to standin/91. completed sit to stand from bedside commode min to mod A and cues and was able to ambulate ~ 2 ft to the chair using FWW min to mod A and cues. pt refused ambulation and stated that she just wants to rest for now. positioned pt on chair. call light and table placed within reach. BP checked: 113/58. Gait Assessment Gait Gait Assistance Required: Minimum Assistance,Moderate Assistance,1 Person Assist Distance (Feet) 2 Able to Maintain Weight Bearing Status No During Gait Assistive Devices Assistive Device Gait Belt,Front Wheeled Walker Orthotic/Prosthetic Devices or Brace: No Gait Deviations General Gait Pattern Antalgic,Decreased Stride Length,Decreased Feet Clearance Factors Limiting Gait Function Factors Limiting Gait Function Decreased Activity Tolerance, Decreased Strength,Pain,Poor Balance,Poor Safety Awareness PT-Balance Assessment Sitting Balance and Reactions Static Sitting Balance Ability Good Dynamic Sitting Balance Ability Good Standing Balance and Reactions Static Standing Balance Ability Fair Dynamic Standing Balance Ability Fair Device Used FWW M5 PT-IP Objective Assessments Start: 07/03/21 15:33 Freq: NEEDED Status: Active Protocol: Document 07/04/21 11:05 AB (Rec: 07/04/21 12:21 AB [email or web address]) Orientation Orientation/Cognition Level of Alertness Alert Orientation Name Safety Awareness Decreased Safety Awareness Memory Description Short Term Impaired Gross Range of Motion Lower Extremity ROM Assessment Within Functional Limits Strength Lower Extremity Strength Assessment Left Impaired Hip 4/5 Knee 4-/5 Coordination Assessment Gross Coordination Gross Coordination WNL Sensation Assessment Sensation Gross Sensation WNL Muscle Tone Muscle Tone WNL Yes M6 PT-IP Treatment Start: 07/03/21 15:33 Freq: NEEDED Status: Active Protocol: Document 07/04/21 11:05 AB (Rec: 07/04/21 12:21 AB [email or web address]) Physical Therapy Treatment Education Education Provided Precautions,Weight Bearing Status,Post-Op Packet,Safety M7 PT-IP Assessment and Plan Start: 07/03/21 15:33 Freq: NEEDED Status: Active Protocol: Document 07/04/21 11:05 AB (Rec: 07/04/21 12:21 AB [email or web address]) PT Summary Assessment and Plan Potential Rehabilitation Potential Good Status of Condition at Evaluation Evolving Summary Impairments Pain,ROM,Strength,Balance, Coordination,Sensation,Tone, Cognition,Bed Mobility, Transfers,Gait,Activity Tolerance Assessment Summary pt requiring min to mod A with mobility using FWW. pt presents with decrease activity tolerance affecting mobility with c/o dizziness and fatigue. will conduct caregiver training when appropriate. will continue to assess progress. Goals Bed Mobility Goal Independent Transfer Goal Standby Assistance,Front Wheeled Walker Gait Goal Standby Assistance,Front Wheel Walker Gait Distance 200 Days to Meet Goals 5 Frequency of Treatment Frequency Of Treatment Twice a Day Treatment Plan Physical Therapy Treatment Plan Bed Mobility Training,Transfer Training,Gait Training, Therapeutic Exercise,Balance Retraining,Post Op Education, Discharge Planning,Hot or Cold Pack,Neuromuscular Re-ed, Coordination Retraining,Manual Therapy Weight Bearing Status Weight Bearing Status Weight Bear as Tolerated Allowed Weight Bearing Amount (enter % LLE INDERJIT or #) (%) Recommendations To Nursing Amount of Assist Needed 1 Person Assist Discharge Recommendations PT Discharge Recommendations Home with Assistance, Outpatient PT Transportation Needs at Discharge Private Vehicle
--- NOTE | 2021-07-04 11:22 | PC.NURSE ---
Just before 9am this RN called to room urgently by PAMELA who is with patient whom is reporting dizziness/lightheadedness. Patient was leaning back in chair pale, fatigued and lightheaded with low BP (see vital signs). Anabela ROLON had been at bedside and placed orders while patient lifted via [facility] lift back to bed and placed in trandelenberg. IV bolus orders and given. Labs and EKG ordered and completed. Patient's blood pressure improved with laying down and IV fluid, patient drowsy, fatigued and reports feeling like whole body is a little numb. Hospitalist consult ordered and patient seen by Dr. Augustine. Bed alarm for safety, up with assist only, PT eval when ready with orthostatic Vital sign monitoring. Will continue to monitor.
--- NOTE | 2021-07-04 14:12 | PT.IPTN ---
Current Diagnoses Unilateral primary osteoarthritis, left knee (07/04/21) Surgery Performed Operation Date: 07/03/21 11:15 Actual Procedures p Total Knee Arthroplasty(Left) - Nash Gregorio MD Physical Therapy Treatment Note M2 PT-IP Current Condition Start: 07/03/21 15:33 Freq: NEEDED Status: Active Protocol: Document 07/04/21 11:05 AB (Rec: 07/04/21 12:21 AB [email or web address]) Physical Therapy Current Condition Current Condition Evaluation Date 07/04/21 Treatment Diagnosis s/p L TKA; difficulty in walking Onset Date 07/03/21 M3 PT-IP Subjective Start: 07/03/21 15:33 Freq: NEEDED Status: Active Protocol: Document 07/04/21 14:12 AB (Rec: 07/04/21 15:41 AB [email or web address]) Subjective Physical Therapy Visit Type Type Treatment Note Visit Start Time 14:12 Visit Stop Time 14:36 Total Visit Minutes 24 Number of PRETZEL TWISTING MACHINE OPERATOR Visits 0 Physical Therapy Visit Comments Patient Comments agreed to do PT M4 PT-IP Mobility and Gait Start: 07/03/21 15:33 Freq: NEEDED Status: Active Protocol: Document 07/04/21 14:12 AB (Rec: 07/04/21 15:41 AB [email or web address]) PT-Bed Mobility Assessment Supine to Sit Supine to Sit Standby Assistance Sit to Supine Sit to Supine Standby Assistance PT-Transfer Assessment Sit to and From Stand Sit to and from Stand Contact Guard Assistance, Minimal Assistance,1 Person Assistance Equipment Transfer Assistive Device Gait Belt,Front Wheeled Walker Orthotic/Prosthetic Devices or Brace: No Comments Mobility Comments pt stated that she just got back to the bed but agreed to ambulate with PT but wants to go back to bed afterwards. BP in supine: 127/52. completed supine to sit SBA. pt was able to sit on EOB. stated that she feels she is going to pass out. BP checked in sittin/55. pt completed sit to stand CGA to min A and was able to standing using FWW for support CGA. BP in standin/48. pt was able to stand for 2 more minutes and BP checked again in standin/57. pt agreed to ambulate in room and completed 20 ft using FWW CGA to min A. pt ambulated back to the bed. BP sitting on EOB after ambulation: 107/47. Pt completed sit to supine SBA. positioned pt in bed. call light and table placed within reach. Gait Assessment Gait Gait Assistance Required: Contact Guard Assist,Minimum Assistance Distance (Feet) 20 Able to Maintain Weight Bearing Status Yes During Gait Assistive Devices Assistive Device Gait Belt,Front Wheeled Walker Orthotic/Prosthetic Devices or Brace: No Gait Deviations General Gait Pattern Antalgic,Step-to Gait Factors Limiting Gait Function Factors Limiting Gait Function Decreased Activity Tolerance, Decreased Strength,Limited Range of Motion,Poor Balance M5 PT-IP Objective Assessments Start: 07/03/21 15:33 Freq: NEEDED Status: Active Protocol: Document 07/04/21 11:05 AB (Rec: 07/04/21 12:21 AB [email or web address]) Orientation Orientation/Cognition Level of Alertness Alert Orientation Name Safety Awareness Decreased Safety Awareness Memory Description Short Term Impaired Gross Range of Motion Lower Extremity ROM Assessment Within Functional Limits Strength Lower Extremity Strength Assessment Left Impaired Hip 4/5 Knee 4-/5 Coordination Assessment Gross Coordination Gross Coordination WNL Sensation Assessment Sensation Gross Sensation WNL Muscle Tone Muscle Tone WNL Yes M6 PT-IP Treatment Start: 07/03/21 15:33 Freq: NEEDED Status: Active Protocol: Document 07/04/21 14:12 AB (Rec: 07/04/21 15:41 AB [email or web address]) Physical Therapy Treatment Education Education Provided Safety M7 PT-IP Assessment and Plan Start: 07/03/21 15:33 Freq: NEEDED Status: Active Protocol: Document 07/04/21 14:12 AB (Rec: 07/04/21 15:41 AB [email or web address]) PT Summary Assessment and Plan Potential Rehabilitation Potential Fair Summary Impairments Pain,ROM,Strength,Balance, Coordination,Sensation,Tone, Cognition,Bed Mobility, Transfers,Gait,Activity Tolerance Assessment Summary pt requiring CGA to min A with ambulation using FWW. BP continues to be low and pt still feeling weak. will continue to assess progress and conduct caregiver training when appropriate. Goals Bed Mobility Goal Independent Transfer Goal Standby Assistance,Front Wheeled Walker Gait Goal Standby Assistance,Front Wheel Walker Gait Distance 200 Days to Meet Goals 5 Frequency of Treatment Frequency Of Treatment Twice a Day Treatment Plan Physical Therapy Treatment Plan Bed Mobility Training,Transfer Training,Gait Training, Therapeutic Exercise,Balance Retraining,Post Op Education, Discharge Planning,Hot or Cold Pack,Neuromuscular Re-ed, Coordination Retraining,Manual Therapy Weight Bearing Status Weight Bearing Status Weight Bear as Tolerated Allowed Weight Bearing Amount (enter % LLE INDERJIT or #) (%) Recommendations To Nursing Amount of Assist Needed 1 Person Assist Discharge Recommendations PT Discharge Recommendations Home with Assistance, Outpatient PT Transportation Needs at Discharge Private Vehicle
--- NOTE | 2021-07-04 15:32 | PM.CN ---
History of Present Illness Consult details Date Patient Seen: 07/04/21 Time Patient Seen: 10:00 Chief complaint: Left Total Knee Arthroplasty *OPB* Narrative: Ms. Madrigal is a 80W with PMH CAD, dCHF who was admitted to the hospital for elective L TKA. She underwent this procedure on 07/03 and did well. Today she was out of bed and she felt lightheaded and weak like she would pass out. She felt generalized numbness. No focal weakness. She had no chest pain or shortness of breath. Her blood pressure was in the 70s systolic. She was brought back to bed, with some improveme in her blood pressure. IV bolus was ordered of normal saline. EKG and troponin ordered. Medicine was consulted for symptomatic hypotension Meds Home Medications and Allergies Home Medications Medication Instructions Recorded Confirmed Type docusate sodium 100 mg capsule 100 mg PO DAILY 11/02/20 06/27/21 History (Stool Softener) duloxetine 30 mg capsule,delayed 30 mg PO DAILY 11/02/20 07/03/21 History release ferrous sulfate 325 mg (65 mg 325 mg PO DAILY 11/02/20 06/27/21 History iron) tablet (Iron (ferrous sulfate)) hydroxyzine HCl 25 mg tablet 25 mg PO BEDTIME 11/02/20 07/03/21 History polyethylene glycol 3350 17 17 g PO DAILY PRN 11/02/20 06/27/21 History gram/dose oral powder (Miralax) aspirin 81 mg tablet,delayed 81 mg PO DAILY 06/27/21 07/03/21 History release gabapentin 100 mg tablet 200 mg PO BEDTIME 06/27/21 07/03/21 History melatonin 5 mg tablet 10 mg PO BEDTIME 06/27/21 06/27/21 History omeprazole 20 mg capsule,delayed 20 mg PO DAILY 06/27/21 07/03/21 History release pregabalin 50 mg capsule 50 mg PO BEDTIME 06/27/21 06/27/21 History sodium chloride 1 gram tablet 1,000 mg PO DAILY 06/27/21 07/03/21 History Allergies Allergy/AdvReac Type Severity Reaction Status Date / Time latex Allergy Severe Facial Verified 06/27/21 12:21 swelling Phenothiazines Allergy Severe THROAT Verified 11/18/20 14:56 [PHENOTHIAZINES] SWELLS SHUT prochlorperazine Allergy Severe Throat Verified 02/08/21 10:01 SWELLING tramadol Allergy Severe Throat Verified 06/27/21 12:21 swelling codeine [CODEINE] Allergy Intermediate ITCHING-OK Verified 02/08/21 10:01 if takes benadryl with it iodine Allergy Pt had a Verified 06/27/21 12:22 positive skin test, unsure reaction atorvastatin AdvReac Severe HEADACHE Verified 06/27/21 12:21 losartan AdvReac Severe HEADACHE Verified 06/27/21 12:21 baclofen AdvReac Intermediate DISORIENTATION, Verified 06/27/21 12:21 PARANOIA carbamazepine AdvReac Mild NAUSEA/VOMITING, Verified 06/27/21 12:21 FATIGUE SHELLFISH ALLERGY Allergy Severe Throat Uncoded 06/27/21 12:21 swelling Review of Systems Review of Systems Narrative: 14 systems reviewed and negative aside from what is noted in HPI Exam Vital Signs (past 8 hours): - 07/04/21 08:31 07/04/21 08:58 07/04/21 09:02 Temperature 97.1 F L Pulse Rate 78 68 76 Respiratory Rate 12 Blood Pressure 98/52 L 72/31 L 83/43 L Pulse Oximetry 93 96 94 07/04/21 09:08 07/04/21 09:14 07/04/21 09:24 Temperature Pulse Rate 72 72 73 Respiratory Rate Blood Pressure 87/44 L 95/51 L 91/42 L Pulse Oximetry 90 L 91 99 07/04/21 09:29 07/04/21 13:00 Temperature 96.3 F L Pulse Rate 74 78 Respiratory Rate 20 Blood Pressure 105/51 L 113/58 L Pulse Oximetry 93 100 Oxygen Delivery Method Room Air Oxygen Flow Rate 0 Narrative Exam Narrative: GEN: slightly lethargic HEENT: PERRL, dry mucous membranes NECK: trachea midline, no JVD CV: regular rate and rhythm PULM: clear bilaterally ABD: soft, nontender, nondistended, no organomegaly EXT: warm and well perfused with no edema NEURO: awake, alert, oriented, no focal deficits Objective Labs Result Diagrams: 07/04/21 05:25 07/04/21 Unknown Labs: Laboratory Results - last 24 hr 07/04/21 07/04/21 05:25 Unknown Hgb 11.5 L Hct 33.9 L Sodium 125 L Potassium 4.2 Chloride 97 L Carbon Dioxide 24 BUN 14 Creatinine 0.65 Estimated GFR > 60.0 BUN/Creatinine Ratio 21.5 Glucose 91 Calcium 8.1 L Total Bilirubin 0.6 AST 48 H ALT 23 Alkaline Phosphatase 72 Total Creatine Kinase 125 CK-MB (CK-2) 1.42 CK-MB (CK-2) Rel Index 1.1 L Troponin I < 0.012 Total Protein 5.3 L Albumin 3.0 L Globulin 2.3 Albumin/Globulin Ratio 1.3 PFSH Medical History CAD (coronary artery disease) Constipation Depression Diastolic heart failure Family history of dementia Hearing loss in left ear Heartburn HTN (hypertension) Insomnia Pacemaker (11/24/20) Pneumonia (11/24/20) Primary osteoarthritis of right knee Trigeminal neuralgia of left side of face (~11/2019) Surgical History H/O bursectomy H/O repair of rotator cuff History of cholecystectomy History of hysterectomy History of knee surgery 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) Family History Mother Old age Father Myocardial infarction Social History household members: family Tobacco & Substance Use Smoking Status: Former smoker alcohol intake: current Assessment & Plan Assessment & Plan narrative: Ms. Madrigal is a 80W admitted for L TKA who had episode of dizziness, found to have hypotension, and hyponatremia. 1. Symptomatic hypotension with hyponatremia with mild aortic stenosis -patient with positive orthostatic vital signs -likely especially sensitive to fluid shifts due to aortic stenosis -ordered for additional IV fluid -urine sodium at 54, possibly has component of SIADH -blood pressure improved with fluid boluses -urine osms also pending -recheck sodium in AM -EKG shows paced rhythm, with no acute abnormalities, troponin negative 2. L knee osteoarthritis s/p TKA -management per ortho 3. s/p PPM -doubt symptoms related to PPM dysfunction -continue on tele CODE: Full Proxy: Jennifer Madrigal-Heena, daughter Time Spent With Patient Critical Care time: I spent a total of [] minutes of critical care time on this patient's care today; this time is exclusive of procedural time.
[2021-07-04 16:01] LABS: Sodium Urine Random 56 mmol/L (30-90)
[2021-07-04] MEDS: SODIUM CHLORIDE 0.9% 500 ML 1000 ML IV (17:20)
--- NOTE | 2021-07-04 17:25 | CM.DANOTE ---
DCP/Assessment: Reviewed chart. Patient is a 80yr old female admitted to [facility] for left TKA performed on 07-03-[address] Gregorio. PCP is Roseann Dietrich. Primary payor is 1)[employer] [facility] 2)Medicare A only. Patient seen by therapy this AM. Current recommendation is home with outpatient follow up. Patient with elevated BP today so most likely will not discharge. At this time do not anticipate any d/c planning needs. CM team following closely. P: Home when stable. KJS Discharge Planning/Care Management CM Discharge Assessment Start: 07/04/21 17:19 Freq: Status: Active Protocol: Document 07/04/21 17:20 KJS (Rec: 07/04/21 17:25 KJS [id number]) Discharge Planning Assessment Assigned Director Property BRENNAN Jones Contact Information Jennifer Madrigal ( daughter) ph# [phone] Advance Directives? No Advance Directives on File No History Provided By Medical Record Prior Living Arrangements House Household Members family Independent with ADL's Yes Is patient alert and oriented? Yes Caregiver for Another No DME Already Rented / Owned FWW / Walker Patient/Family Preference OP PT Therapy Barriers to Discharge No Discharge Plan Home Transportation Arrangement Family to provide transport. Referrals Initiated Home Health Review Status In Process Next Review Type Continued Stay Review Pre-Anesthesia Assessment Start: 06/26/21 12:49 Freq: Status: Active Protocol: Document 06/26/21 12:49 CAB (Rec: 06/26/21 13:45 CAB [id number]) Pre-Anesthesia Assessment Preferred Name Edrie (E-Dree) Patient Information Reviewed Via Phone Assessment Assessment Completed With Patient Diagnostic Results BMP/CMP,CBC,EKG Comment Outside labs/EKG scanned, COVID screen @ [facility] 06/30/21 Primary Care Provider Roseann Dietrich Seen Specialist in Last 12 Months Yes Specialist Seen General Internist And Physician Leader,Orthopedist, Urologist,Other Comment GI Primary Language Iraqi Preferred Language Iraqi Acquisitions Librarian Required No Height 160.02 cm Weight 63.957 kg Body Mass Index (BMI) 25.0 Hearing Ability Hard of Hearing Visual Impairment No Limitations Dentition Type Teeth, Natural Present,Dental Implants Barriers to Learning Auditory Other Aids No Hx Anesthesia Reactions No Hx Family Anesthesia Reaction No Hx Malignant Hyperthermia No Hx Blood Transfusions No Hx Blood Transfusion Reaction No Anesthesia Review Requested No Weir Fisher No alcohol intake never Smoking Status Former smoker how long ago did patient quit smoking 1979 Substance Use Type does not use Pain Present Pain Reported Musculoskeletal Symptoms Abnormal Gait,Back Pain, Deformity,Joint Pain History of Falling (Recent or History of Yes ) Patient is completely paralyzed or No completely immobile Mental Status Oriented to own ability Is patient on oxygen? No Does patient have SANTIZO/SOB Yes: SANTIZO Hx Sleep Apnea No CPAP/BIPAP use not prescribed Currently Taking a Beta Matias No Can You Climb a Flight of Stairs Without Yes SOB Hx Chest Pain No Hx SOB Yes: SANTIZO-able to walk around house 3,000-10,000 steps w/o difficulty Hx Syncope or Dizziness No Anti-Coagulant Therapy No Has a General Internist And Physician Leader Yes: Cesar-last visit 12/06 Cardiac Testing Yes: Stress - was on statin 10 years ago, no problem since Hx Pacemaker/ICD Yes: Implanted 11/24/20 Pacemaker Rep Required? 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 Received a COVID vaccine? Yes Received all doses? Yes Marital Status Lives With family Prior Living Arrangements House Number of Floors (Floors) Two Floors Support System Child/Children Patient Discharge Plan Description Return Home Comment Pt advised 24 hour length of stay per surgeon Feels Safe in Current Environment Yes Been Physically Hurt or Threatened By a No Person in Current Environment Do you have thoughts of harming yourself None or others? Are you currently considering suicide? No Do you have a plan to hurt yourself or No Plan others? Do You Have Any Spiritual Beliefs That No May Affect Your HC Choices? Do You Have Any Cultural Practices That No May Affect Your HC Choices? Who Can We Speak to About Patient's Care Family, friends Identifying Code for Release of Patient Declines to issue Information Health Care Proxy/Next of Kin Jennifer (daughter) Health Care Proxy or [phone] Emergency Contact Name Granddaughter - Yohana Madrigal Emergency Contact Advance Directives? No Advance Directives on File No Power of Mechanical Engineering Coop Yes Power of [employer] Engineering Co[employer] Name Jennifer (daughter) Power of [employer] or [phone] PAC Instructions Do not shave/clip surgical site,Durable medical equipment ,Medications to take/avoid, Nasal antibiotic,No ETOH/ petroleum product on skin DOS, NPO,Pre-surgical wash,Sturdy shoes/comfortable clothes,Do not bring valuables and remove jewelry
--- NOTE | 2021-07-04 20:08 | PC.NURSE ---
Patient able to get up with walker and 1 PA several times today after morning episode of low blood pressure, without event. Afternoon orthostatic vital signs reported to Dr. Augustine, and additional 500cc NS bolus ordered and initiated. IV to right forearm infiltrated during bolus and dc'd intact. This RN and float RN unable to obtain second IV at this time, ER nurse agrees to come start IV this evening. Patient resting in bed comfortably at this time, aquacel dressing to knee remains intact. Bed alarm on for safety and call light withinr each.
[2021-07-04] MEDS: PREGABALIN 50 MG CAPSULE PO (20:20)
[2021-07-04] MEDS: GABAPENTIN 100 MG CAPSULE 200 MG PO (20:20)
[2021-07-04] MEDS: hydrOXYzine pamoate 25 MG CAPSULE PO (20:20)
[2021-07-04] MEDS: MELATONIN 3 MG TABLET 9 MG PO (20:20)
[2021-07-04] MEDS: OXYCODONE IR 5 MG TABLET PO (23:06)
[2021-07-05] VITALS (7 sets, daily range): BP systolic 123–175; BP diastolic 54–110; PULSE 78–88; RESP 14–18; TEMP 36.3–36.9; O2SAT 96–99
[2021-07-05] MEDS: IBUPROFEN 400 MG TABLET PO ×6 (00:36→22:17)
[2021-07-05] MEDS: OXYCODONE IR 5 MG TABLET PO ×3 (04:58→10:00)
[2021-07-05 05:54] LABS: Appearance Urine UA CLEAR; Bilirubin Urine UA NEGATIVE (NEGATIVE); Color Urine UA YELLOW; Glucose Urine UA NEGATIVE (Negative); Ketones Urine UA NEGATIVE (NEGATIVE); Leukocyte Esterase Urine UA NEGATIVE (NEGATIVE); Nitrite Urine UA NEGATIVE (Negative); Occult Blood Urine UA NEGATIVE (Negative); Protein Urine UA NEGATIVE (Negative); Urobilinogen Urine UA 0.2 E.U./dL (0.2)
[2021-07-05 05:59] LABS: pH Urine UA 5.5 (4.5-8.0)
[2021-07-05] MEDS: PANTOPRAZOLE DR 20 MG TABLET PO (05:59)
[2021-07-05 06:26] LABS: Bacteria Urine None Seen; Culture Indicated Urine Cult Not Indicated; RBC Urine None Seen (0-5/HPF); Squamous Epithelial Cell Urine 0-1 /HPF (0-5/HPF); WBC Urine None Seen (0-5/HPF)
[2021-07-05 07:25] LABS: BUN Creatinine Ratio 19.6 (6-22); Blood Urea Nitrogen 11 mg/dL (7-17); Calcium 8.5 mg/dL (8.4-10.2); Carbon Dioxide 26 mmol/L (22-32); Chloride 96 mmol/L (98-107); Estimated Glomerular Filt Rate > 60.0 mL/min (>60); Glucose 94 mg/dL (80-110); HEMOLYSIS 21 (0-50); Potassium 4.6 mmol/L (3.4-5.1); Sodium 125 mmol/L (137-145)
--- NOTE | 2021-07-05 07:32 | PM.PNPO.1 ---
Subjective Subjective Date Patient Seen: 07/05/21 Time Patient Seen: 07:36 Interval history: Patient is complaining of moderate left knee pain this morning. She is feeling somewhat better than yesterday although she has only been off once this morning to void and did feel lightheaded. She denies any new numbness or tingling. No chest pain or shortness of breath. Exam Vital Signs (past 8 hours): - 07/05/21 01:16 07/05/21 05:13 Temperature 98.5 F 98.2 F Pulse Rate 78 85 Respiratory Rate 16 16 Blood Pressure 145/69 H 175/79 H Pulse Oximetry 96 97 Oxygen Delivery Method Room Air Oxygen Flow Rate 0 Narrative Exam Narrative: 80-year-old female, resting comfortably in bed, no acute distress. Left knee bandage demonstrates small area of serosanguineous drainage on the mid aspect of the incision. Otherwise bilateral lower extremity motor functions are grossly intact. Sensation is grossly intact to light touch in bilateral lower extremities. Bilateral calves are soft, nontender to palpation. Objective Labs Result Diagrams: 07/04/21 05:25 07/05/21 06:50 Labs: Laboratory Results - last 24 hr 07/04/21 07/04/21 07/05/21 11:40 Unknown 05:47 Sodium 125 L Potassium 4.2 Chloride 97 L Carbon Dioxide 24 BUN 14 Creatinine 0.65 Estimated GFR > 60.0 BUN/Creatinine Ratio 21.5 Glucose 91 Calcium 8.1 L Total Bilirubin 0.6 AST 48 H ALT 23 Alkaline Phosphatase 72 Total Creatine Kinase 125 CK-MB (CK-2) 1.42 CK-MB (CK-2) Rel Index 1.1 L Troponin I < 0.012 Total Protein 5.3 L Albumin 3.0 L Globulin 2.3 Albumin/Globulin Ratio 1.3 Urine Color Yellow Urine Appearance Clear Urine pH 5.5 Ur Specific Tuthill 1.020 Urine Protein Negative Urine Glucose (UA) Negative Urine Ketones Negative Urine Occult Blood Negative Urine Nitrate Negative Urine Bilirubin Negative Urine Urobilinogen 0.2 Ur Leukocyte Esterase Negative Urine RBC None seen Urine WBC None seen Ur Squamous Epith Cells 0-1 /hpf Urine Bacteria None seen Ur Culture Indicated? Cult not indicated Ur Random Sodium 56 07/05/21 06:50 Sodium 125 L Potassium 4.6 Chloride 96 L Carbon Dioxide 26 BUN 11 Creatinine 0.56 Estimated GFR > 60.0 BUN/Creatinine Ratio 19.6 Glucose 94 Calcium 8.5 Total Bilirubin AST ALT Alkaline Phosphatase Total Creatine Kinase CK-MB (CK-2) CK-MB (CK-2) Rel Index Troponin I Total Protein Albumin Globulin Albumin/Globulin Ratio Urine Color Urine Appearance Urine pH Ur Specific Tuthill Urine Protein Urine Glucose (UA) Urine Ketones Urine Occult Blood Urine Nitrate Urine Bilirubin Urine Urobilinogen Ur Leukocyte Esterase Urine RBC Urine WBC Ur Squamous Epith Cells Urine Bacteria Ur Culture Indicated? 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) Family History Mother Old age Father Myocardial infarction Social History household members: family Smoking Status: Former smoker alcohol intake: current Assessment & Plan Post-op Postoperative Procedures: Procedures Operation Date: 07/03/21 11:15 Actual Procedure Side Surgeon p Total Knee Arthroplasty Left Nash Gregorio MD Postoperative day: 2 Postoperative status narrative: -stable status post left TKA -symptomatic hypotension with hyponatremia and mild aortic stenosis -s/p PPM Postoperative plan narrative: -Symptomatic hypotension with hyponatremia with mild aortic stenosis; s/p PPM -hospitalist is managing -Left TKA: --mobilize with PT. Weightbearing as tolerated with front wheel walker -continue with current pain management and DVT prophylaxis -Disposition likely home tomorrow, depending on clearance from hospitalist and Physical therapy. She lives on [facility].
[2021-07-05] MEDS: ACETAMINOPHEN 325 MG TABLET 650 MG PO ×3 (08:17→22:16)
[2021-07-05] MEDS: DOCUSATE 100 MG CAPSULE PO ×2 (08:18→22:18)
[2021-07-05] MEDS: ASPIRIN EC 81 MG TABLET PO ×2 (08:18→22:17)
[2021-07-05] MEDS: FERROUS SULFATE 325 MG TABLET PO (08:20)
[2021-07-05] MEDS: DULOXETINE 30 MG CAPSULE PO (08:20)
[2021-07-05] MEDS: polyethylene glycoL 3350 17 GM POWD.PACK PO (08:24)
--- NOTE | 2021-07-05 09:59 | PT.IPTN ---
Current Diagnoses Postprocedural hypotension (07/04/21) Surgery Performed Operation Date: 07/03/21 11:15 Actual Procedures p Total Knee Arthroplasty(Left) - Nash Gregorio MD Physical Therapy Treatment Note M2 PT-IP Current Condition Start: 07/03/21 15:33 Freq: NEEDED Status: Active Protocol: Document 07/05/21 09:37 ER (Rec: 07/05/21 14:23 ER [id number]) Physical Therapy Current Condition Current Condition Evaluation Date 07/04/21 Treatment Diagnosis s/p L TKA; difficulty in walking Onset Date 07/03/21 M3 PT-IP Subjective Start: 07/03/21 15:33 Freq: NEEDED Status: Active Protocol: Document 07/05/21 09:37 ER (Rec: 07/05/21 14:23 ER [id number]) Subjective Physical Therapy Visit Type Type Treatment Note Visit Start Time 09:37 Visit Stop Time 09:59 Total Visit Minutes 22 Notes KAREN Pepper lead treatment and provided education under the direct supervision and instruction of ISMAEL Julio, who served as second person as needed. Number of PSYCHOLOGY INSTRUCTOR Visits 1 Physical Therapy Visit Comments Patient Comments Pt said she had not pain today and slept well. Agreeable to do PT. Therapy Pain Assessment Pain Present Pain Present Denied Pain M4 PT-IP Mobility and Gait Start: 07/03/21 15:33 Freq: NEEDED Status: Active Protocol: Document 07/05/21 09:37 ER (Rec: 07/05/21 14:23 ER [id number]) PT-Bed Mobility Assessment Supine to Sit Supine to Sit Independent Sit to Supine Sit to Supine Independent Scooting Scooting to Edge of Bed Independent PT-Transfer Assessment Sit to and From Stand Sit to and from Stand Contact Guard Assistance,1 Person Assistance Equipment Transfer Assistive Device Gait Belt,Front Wheeled Walker Orthotic/Prosthetic Devices or Brace: No Transfers Transfer Destination Bed Transfer Technique ambulated Transfer Ability Level of Assist Contact Guard Assistance,1 Person Assistance,Use of Upper Extremities Comments Mobility Comments Pt was in elevated supine upon arrival. with bed alarm off. Vitals: in elevated supine BP 159/69, HR 87, 95% SaO2; at EOB BP132/110, HR 116; in standing BP 148/73, HR 102; post mobility in supine BP145/ 70, HR 95. Reviewed post-op exercises with pt in bed. Pt. was able to flex knee considerably farther than expected (113 degrees). Pt. performed sup> sit at EOB independently. She was also able to scoot to edge of EOB independently. Upon sitting upright, Pt indicated that she felt dizzy. Checked vitals, and maintained seated position for 2 minutes. Pt. indicated that she still felt dizzy but wanted to continue with tx. Pt. sit> stand using FWW and gait belt, with CGA. Rechecked vitals in standing. Pt. reported that she still felt dizzy but wanted to continue with tx. Pt. ambulated 15' using FWW and CGA before reporting her dizziness increasing. Pt. ambulated back to bed using FWW and CGA, and was able to stand> sit using FWW and UE support, with CGA. Pt. performed sit> supine independently. Rechecked vitals. Pt. indicated that dizziness was subsiding. Pt. left in supine with call zeng in arms reach. Nurse and COMMUNITY SERVICE PATROL OFFICER present at end of tx, suggested to COMMUNITY SERVICE PATROL OFFICER to don bed alarm. Educated pt safety use of alarm for assist with mobiltiy. Gait Assessment Gait Gait Assistance Required: Contact Guard Assist,1 Person Assist Distance (Feet) 30 Able to Maintain Weight Bearing Status Yes During Gait Assistive Devices Assistive Device Gait Belt,Front Wheeled Walker Orthotic/Prosthetic Devices or Brace: No Gait Deviations General Gait Pattern Decreased Stride Length Factors Limiting Gait Function Factors Limiting Gait Function Decreased Activity Tolerance, Decreased Strength,Poor Balance Comments Gait Comments Pt. was able to ambulate with FWW and CGA with shortened stride length, but good knee flexion, and foot clearance. PT-Balance Assessment Sitting Balance and Reactions Static Sitting Balance Ability Good Dynamic Sitting Balance Ability Good Standing Balance and Reactions Static Standing Balance Ability Good Dynamic Standing Balance Ability Fair Device Used FWW M5 PT-IP Objective Assessments Start: 07/03/21 15:33 Freq: NEEDED Status: Active Protocol: Document 07/04/21 11:05 AB (Rec: 07/04/21 12:21 AB [id number]) Orientation Orientation/Cognition Level of Alertness Alert Orientation Name Safety Awareness Decreased Safety Awareness Memory Description Short Term Impaired Gross Range of Motion Lower Extremity ROM Assessment Within Functional Limits Strength Lower Extremity Strength Assessment Left Impaired Hip 4/5 Knee 4-/5 Coordination Assessment Gross Coordination Gross Coordination WNL Sensation Assessment Sensation Gross Sensation WNL Muscle Tone Muscle Tone WNL Yes M6 PT-IP Treatment Start: 07/03/21 15:33 Freq: NEEDED Status: Active Protocol: Document 07/05/21 09:37 ER (Rec: 07/05/21 14:23 ER [id number]) Physical Therapy Treatment Exercises Exercises Ankle Pumps,Quad Sets,Heel Slides Knee ROM Measurement 5-113 Education Education Provided Safety M7 PT-IP Assessment and Plan Start: 07/03/21 15:33 Freq: NEEDED Status: Active Protocol: Document 07/05/21 09:37 ER (Rec: 07/05/21 14:23 ER [id number]) PT Summary Assessment and Plan Potential Rehabilitation Potential Fair Status of Condition at Evaluation Evolving Summary Impairments Pain,ROM,Strength,Balance, Coordination,Sensation,Tone, Cognition,Bed Mobility, Transfers,Gait,Activity Tolerance Progress Towards Goals Progressing Toward Goals,Slow Progress due to Activity Tolerance,Slow Progress - Other Assessment Summary Pt. I bed mobility, and CGA for safety BPs during ambulation using FWW. Pt. ambulated 30' with FWW and CGA . Stopped due to increased dizziness. Pt. indicated symptoms abated on returning to supine. Informed nursing of symptoms. Nurse and COMMUNITY SERVICE PATROL OFFICER present at end of tx. Goals Bed Mobility Goal Independent Transfer Goal Standby Assistance,Front Wheeled Walker Gait Goal Standby Assistance,Front Wheel Walker Gait Distance 200 Days to Meet Goals 5 Frequency of Treatment Frequency Of Treatment Twice a Day Treatment Plan Physical Therapy Treatment Plan Bed Mobility Training,Transfer Training,Gait Training, Therapeutic Exercise,Balance Retraining,Post Op Education, Discharge Planning,Hot or Cold Pack,Neuromuscular Re-ed, Coordination Retraining,Manual Therapy Other Recommendations and Next Treatment gait training with FWW Focus Weight Bearing Status Weight Bearing Status Weight Bear as Tolerated Allowed Weight Bearing Amount (enter % LLE INDERJIT or #) (%) Recommendations To Nursing Amount of Assist Needed 1 Person Assist Discharge Recommendations PT Discharge Recommendations Home with Assistance, Outpatient PT Transportation Needs at Discharge Private Vehicle
[2021-07-05] MEDS: SODIUM CHLORIDE 1,000 MG TABLET 1000 MG PO (10:03)
[2021-07-05] MEDS: OXYCODONE IR 10 MG TABLET PO ×3 (14:02→22:14)
--- NOTE | 2021-07-05 15:48 | PT.IPTN ---
Current Diagnoses Postprocedural hypotension (07/04/21) Surgery Performed Operation Date: 07/03/21 11:15 Actual Procedures p Total Knee Arthroplasty(Left) - Nash Gregorio MD Physical Therapy Treatment Note M2 PT-IP Current Condition Start: 07/03/21 15:33 Freq: NEEDED Status: Active Protocol: Document 07/05/21 15:32 ER (Rec: 07/05/21 17:07 ER [id number]) Physical Therapy Current Condition Current Condition Evaluation Date 07/04/21 Treatment Diagnosis s/p L TKA; difficulty in walking Onset Date 07/03/21 M3 PT-IP Subjective Start: 07/03/21 15:33 Freq: NEEDED Status: Active Protocol: Document 07/05/21 15:32 ER (Rec: 07/05/21 17:07 ER [id number]) Subjective Physical Therapy Visit Type Type Treatment Note Visit Start Time 15:32 Visit Stop Time 15:48 Total Visit Minutes 16 Notes SPTA lead treatment and provided education under the direct supervision and instruction of ISMAEL Julio, who served as second person as needed. Number of ACQUISITION MARKETING COORDINATOR Visits 2 Physical Therapy Visit Comments Patient Comments Pt. said that she had been up on her feet after this morning 's tx. and felt dizzy then as well. Describes dizzyness as woozy and not quite stable. Denies spinning sensation. Therapy Pain Assessment Pain Present Pain Present Denied Pain M4 PT-IP Mobility and Gait Start: 07/03/21 15:33 Freq: NEEDED Status: Active Protocol: Document 07/05/21 15:32 ER (Rec: 07/05/21 17:07 ER [id number]) PT-Bed Mobility Assessment Supine to Sit Supine to Sit Independent Sit to Supine Sit to Supine Independent Scooting Scooting to Edge of Bed Independent PT-Transfer Assessment Sit to and From Stand Sit to and from Stand Contact Guard Assistance,1 Person Assistance Equipment Transfer Assistive Device Gait Belt,Front Wheeled Walker Orthotic/Prosthetic Devices or Brace: No Transfers Transfer Destination Chair Transfer Technique ambulated Transfer Ability Level of Assist Contact Guard Assistance,1 Person Assistance,Use of Upper Extremities Comments Mobility Comments Pt asleep in supine upon arrival. Vitals: in supine: BP 135/66, HR 80, SaO2 98%; in sitting EOB: BP 138/65, HR 77; in standing: BP 122/59, HR 80 ; seated after mobility: BP 127/68, HR 86. Pt independent sup>sit>scoot EOB. Pt. became dizzy as soon as she was seated. Pt. remained seated EOB for 2 minutes. Symptoms did not yrn, but pt. indicated that she wanted to continue with tx . Pt sit>stand using FWW and UE support, with CGA+1. Pt. ambulated with shortened strides, but normal gait pattern 130'. Cues for upright posture. Pt. indicated that dizziness decreased but did not go away after approx 100' ambulation. Pt executed multiple self-directed head turns during ambulation, with no LOB or deviation in step path. Pt. stand> sit in chair using FWW and UE support, with CGA+1 for safety. Pt. scooted back in chair independently. Pt. left in chair with call light and all needs within arms reach, and chair alarm on . Gait Assessment Gait Gait Assistance Required: Contact Guard Assist,1 Person Assist Distance (Feet) 130 Able to Maintain Weight Bearing Status Yes During Gait Assistive Devices Assistive Device Gait Belt,Front Wheeled Walker Orthotic/Prosthetic Devices or Brace: No Gait Deviations General Gait Pattern Decreased Stride Length Factors Limiting Gait Function Factors Limiting Gait Function Decreased Activity Tolerance, Decreased Strength,Poor Balance Comments Gait Comments Pt. was able to ambulate with FWW and CGA with shortened stride length, but good knee flexion, and foot clearance. PT-Balance Assessment Sitting Balance and Reactions Static Sitting Balance Ability Good Dynamic Sitting Balance Ability Good Standing Balance and Reactions Static Standing Balance Ability Good Dynamic Standing Balance Ability Fair Device Used FWW M5 PT-IP Objective Assessments Start: 07/03/21 15:33 Freq: NEEDED Status: Active Protocol: Document 07/04/21 11:05 AB (Rec: 07/04/21 12:21 AB [id number]) Orientation Orientation/Cognition Level of Alertness Alert Orientation Name Safety Awareness Decreased Safety Awareness Memory Description Short Term Impaired Gross Range of Motion Lower Extremity ROM Assessment Within Functional Limits Strength Lower Extremity Strength Assessment Left Impaired Hip 4/5 Knee 4-/5 Coordination Assessment Gross Coordination Gross Coordination WNL Sensation Assessment Sensation Gross Sensation WNL Muscle Tone Muscle Tone WNL Yes M6 PT-IP Treatment Start: 07/03/21 15:33 Freq: NEEDED Status: Active Protocol: Document 07/05/21 15:32 ER (Rec: 07/05/21 17:07 ER [id number]) Physical Therapy Treatment Education Education Provided Safety M7 PT-IP Assessment and Plan Start: 07/03/21 15:33 Freq: NEEDED Status: Active Protocol: Document 07/05/21 15:32 ER (Rec: 07/05/21 17:07 ER [id number]) PT Summary Assessment and Plan Potential Rehabilitation Potential Fair Status of Condition at Evaluation Evolving Summary Impairments Pain,ROM,Strength,Balance, Coordination,Sensation,Tone, Cognition,Bed Mobility, Transfers,Gait,Activity Tolerance Progress Towards Goals Progressing Toward Goals,Slow Progress due to Activity Tolerance,Slow Progress - Other Assessment Summary Pt. continues to experience dizziness when upright, decreased after 100' of ambulation but did not cease. Pt. I with mobility and CGA for safety sit>stand>sit and during ambulation using FWW. Pt. ambulated 130' with FWW and CGA. Pt. will belefit from continued PT to improve functional strength, and ROM. Goals Bed Mobility Goal Independent Transfer Goal Standby Assistance,Front Wheeled Walker Gait Goal Standby Assistance,Front Wheel Walker Gait Distance 200 Days to Meet Goals 5 Frequency of Treatment Frequency Of Treatment Twice a Day Treatment Plan Physical Therapy Treatment Plan Bed Mobility Training,Transfer Training,Gait Training, Therapeutic Exercise,Balance Retraining,Post Op Education, Discharge Planning,Hot or Cold Pack,Neuromuscular Re-ed, Coordination Retraining,Manual Therapy Other Recommendations and Next Treatment Increased distance in gait Focus training with FWW Weight Bearing Status Weight Bearing Status Weight Bear as Tolerated Allowed Weight Bearing Amount (enter % LLE INDERJIT or #) (%) Recommendations To Nursing Amount of Assist Needed 1 Person Assist Discharge Recommendations PT Discharge Recommendations Home with Assistance, Outpatient PT Transportation Needs at Discharge Private Vehicle
--- NOTE | 2021-07-05 17:54 | PM.PN.1 ---
Subjective Subjective Date Patient Seen: 07/05/21 Time Patient Seen: 08:00 Interval history: Today she feels much improved regarding her dizziness, lightheadedness, weakness from yesterday. She has significant leg pain. Exam Vital Signs (past 8 hours): - 07/05/21 15:55 Temperature 97.4 F L Pulse Rate 80 Respiratory Rate 16 Blood Pressure 127/68 Pulse Oximetry 98 Oxygen Delivery Method Room Air Oxygen Flow Rate 0 Narrative Exam Narrative: GEN: much more alert HEENT: PERRL, moist mucous membranes NECK: trachea midline, no JVD CV: regular rate and rhythm PULM: clear bilaterally ABD: soft, nontender, nondistended, no organomegaly EXT: warm and well perfused with no edema NEURO: awake, alert, oriented, no focal deficits Objective Labs Result Diagrams: 07/04/21 05:25 07/05/21 06:50 Labs: Laboratory Results - last 24 hr 07/05/21 07/05/21 05:47 06:50 Sodium 125 L Potassium 4.6 Chloride 96 L Carbon Dioxide 26 BUN 11 Creatinine 0.56 Estimated GFR > 60.0 BUN/Creatinine Ratio 19.6 Glucose 94 Calcium 8.5 Urine Color Yellow Urine Appearance Clear Urine pH 5.5 Ur Specific [place] 1.020 Urine Protein Negative Urine Glucose (UA) Negative Urine Ketones Negative Urine Occult Blood Negative Urine Nitrate Negative Urine Bilirubin Negative Urine Urobilinogen 0.2 Ur Leukocyte Esterase Negative Urine RBC None seen Urine WBC None seen Ur Squamous Epith Cells 0-1 /hpf Urine Bacteria None seen Ur Culture Indicated? 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 Madrgial is a 80W admitted for L TKA who had episode of dizziness, found to have hypotension, and hyponatremia. 1. Symptomatic hypotension with hyponatremia with mild aortic stenosis -patient with positive orthostatic vital signs -likely especially sensitive to fluid shifts due to aortic stenosis -ordered for additional IV fluid and improved blood pressure -urine sodium at 54, consistent with SIADH -urine osms also pending -recheck sodium in AM did not improve -now that patient euvolemic, stop fluids, fluid restrict, and restart home salt tabs -EKG shows paced rhythm, with no acute abnormalities, troponin negative 2. L knee osteoarthritis s/p TKA -management per ortho 3. s/p PPM -doubt symptoms related to PPM dysfunction -dc tele Time Spent With Patient Critical Care time: I spent a total of [] minutes of critical care time on this patient's care today; this time is exclusive of procedural time.
[2021-07-05] MEDS: GABAPENTIN 100 MG CAPSULE 200 MG PO (22:16)
[2021-07-05] MEDS: MELATONIN 3 MG TABLET 9 MG PO (22:16)
[2021-07-05] MEDS: hydrOXYzine pamoate 25 MG CAPSULE PO (22:17)
[2021-07-05] MEDS: PREGABALIN 50 MG CAPSULE PO (22:17)
[2021-07-06] MEDS: DOCUSATE 100 MG CAPSULE PO ×3 (01:59→21:47)
[2021-07-06] MEDS: IBUPROFEN 400 MG TABLET PO ×5 (02:00→21:50)
[2021-07-06] MEDS: OXYCODONE IR 10 MG TABLET PO ×4 (02:03→17:40)
[2021-07-06 06:05] VITALS: BP 107/59; PULSE 85; RESP 16; TEMP 36.1; O2SAT 97
[2021-07-06 06:05] LABS: BUN Creatinine Ratio 17.9 (6-22); Blood Urea Nitrogen 14 mg/dL (7-17); Calcium 8.9 mg/dL (8.4-10.2); Carbon Dioxide 29 mmol/L (22-32); Chloride 98 mmol/L (98-107); Estimated Glomerular Filt Rate > 60.0 mL/min (>60); Glucose 94 mg/dL (80-110); HEMOLYSIS < 15 (0-50); Potassium 4.9 mmol/L (3.4-5.1); Sodium 130 mmol/L (137-145)
[2021-07-06 07:45] VITALS: BP 98/48; PULSE 79; RESP 16; TEMP 36.4; O2SAT 94
[2021-07-06] MEDS: PANTOPRAZOLE DR 20 MG TABLET PO (09:10)
[2021-07-06] MEDS: SODIUM CHLORIDE 1,000 MG TABLET 1000 MG PO ×3 (09:12→21:46)
[2021-07-06] MEDS: FERROUS SULFATE 325 MG TABLET PO (09:12)
[2021-07-06] MEDS: SODIUM CHLORIDE 0.9% 1,000 ML 1000 ML IV (09:14)
[2021-07-06] MEDS: ASPIRIN EC 81 MG TABLET PO ×2 (09:24→21:50)
[2021-07-06] MEDS: ACETAMINOPHEN 325 MG TABLET 650 MG PO ×3 (09:24→21:48)
[2021-07-06] MEDS: DULOXETINE 30 MG CAPSULE PO (09:25)
--- NOTE | 2021-07-06 09:25 | PM.PNPO.1 ---
Subjective Subjective Date Patient Seen: 07/06/21 Time Patient Seen: 09:26 Interval history: The patient has no complaints on her left knee. She is feeling dizzy and lightheaded and ?does not know she is falling asleep or passing out. ? She is being treated for hyponatremia. Her cardiac workup was negative. She is somewhat tearful this morning. Exam Vital Signs (past 8 hours): - 07/06/21 06:05 Temperature 97.0 F L Pulse Rate 85 Respiratory Rate 16 Blood Pressure 107/59 L Pulse Oximetry 97 Oxygen Delivery Method Room Air Oxygen Flow Rate 0 Narrative Exam Narrative: 80-year-old female, resting in bed, tearful, mild distress. Dressing shows scant area drainage on the proximal aspect of the incision. Bilateral lower extremity motor functions are grossly intact. Sensation grossly intact to light touch in bilateral lower extremities. Calves are soft, nontender to palpation. Objective Labs Result Diagrams: 07/04/21 05:25 07/06/21 05:35 Labs: Laboratory Results - last 24 hr 07/06/21 05:35 Sodium 130 L Potassium 4.9 Chloride 98 Carbon Dioxide 29 BUN 14 Creatinine 0.78 Estimated GFR > 60.0 BUN/Creatinine Ratio 17.9 Glucose 94 Calcium 8.9 PFSH Medical History CAD (coronary artery disease) Constipation Depression Diastolic heart failure Family history of dementia Hearing loss in left ear Heartburn HTN (hypertension) Insomnia Pacemaker (11/24/20) Pneumonia (11/24/20) Primary osteoarthritis of right knee Trigeminal neuralgia of left side of face (~11/2019) Surgical History H/O bursectomy H/O repair of rotator cuff History of cholecystectomy History of hysterectomy History of knee surgery 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) Family History Mother Old age Father Myocardial infarction Social History household members: family Smoking Status: Former smoker alcohol intake: current Assessment & Plan Post-op Postoperative Procedures: Procedures Operation Date: 07/03/21 11:15 Actual Procedure Side Surgeon p Total Knee Arthroplasty Left Nash Gregorio MD Postoperative day: 23 Postoperative status narrative: -status post left total knee arthroplasty -hyponatremia -h/o PPM Postoperative plan narrative: -continue to treat her hyponatremia, per hospitalist recommendation --continue with current pain regimen and DVT prophylaxis -mobilize with PT when her dizziness has subsided -disposition to home or possibly SNF tomorrow, depending on hospitalist recommendation.
[2021-07-06] MEDS: polyethylene glycoL 3350 17 GM POWD.PACK PO (09:30)
[2021-07-06 09:49] LABS: Osmolality Urine 216 mOsmol/kg (.)
--- NOTE | 2021-07-06 10:52 | PT-IP ANOTE ---
Attempted to see pt at 10:52 AM, pt not able to answer questions verbally and daughter in room and concerned, RN notified and arrived in room to assess pt. Code stroke then called by RN, will f/u in PM if appropriate.
--- NOTE | 2021-07-06 11:04 | DI.CT.S_ITS ---
PROCEDURE: CT STROKE INDICATIONS: poss CVA TECHNIQUE: Noncontrast 4.5 mm thick angled axial sections acquired from the foramen magnum to the vertex, with coronal reformats. For radiation dose reduction, the following was used: automated exposure control, adjustment of mA and/or kV according to patient size. COMPARISON: [facility], MR, MR HEAD/BRAIN WO/W CON, 07/29/2019, 12:32. [facility], CT, CT HEAD WITHOUT CONTRAST, 11/04/2019, 15:15. FINDINGS: Image quality: Excellent. CSF spaces: Basal cisterns are patent. No extra-axial fluid collections. The ventricles are symmetric in size and shape. Brain: No intracranial bleeds or masses. There is cerebral volume loss for age, with resultant ventricular and sulcal prominence. There are periventricular and deep white matter chronic small vessel ischemic changes. There is intracranial internal carotid artery atherosclerosis. Skull and face: Calvarium and visualized facial bones appear intact, without suspicious lesions. Sinuses: There is left frontal and sphenoid, and bilateral ethmoid and maxillary sinus mucosal thickening. The mastoids are clear. IMPRESSION: 1. No acute intracranial abnormalities. 2. Cerebral volume loss and chronic microvascular ischemic changes. 3. Paranasal sinus disease. The result was discussed with Dr. Hart. This study fulfills neurological imaging criteria for inclusion or exclusion of acute stroke therapies based on available published neurological guidelines. Dictated by: Jed Cadena M.D. on 07/06/2021 at 11:12 Approved by: Jed Cadena M.D. on 07/06/2021 at 11:15
--- NOTE | 2021-07-06 11:04 | DI.CT.S_ITS ---
PROCEDURE: CT ANGIO HEAD AND NECK INDICATIONS: poss CVA confussion TECHNIQUE: Noncontrast images were performed earlier in the day and not repeated. After the administration of intravenous contrast, 1 mm thick sections acquired from the aortic arch through the [place]. Post-contrast 4.5 mm thick sections then re-acquired from the foramen magnum to the vertex. 3-dimensional coquqge-ujdopeauf-puqhwbeqwl (MIP) and/or volume rendering reformats were acquired of the central intracranial vasculature and neck separately. COMPARISON: [facility], MR, MR HEAD/BRAIN WO/W CON, 07/29/2019, 12:32. [facility], CT, CT HEAD WITHOUT CONTRAST, 11/04/2019, 15:15. [facility], CT, CT STROKE, 07/06/2021, 11:12. FINDINGS: Image quality: There is artifact associated with the metallic hardware. BRAIN: CSF spaces: Ventricles are normal in size and shape. Basal cisterns are patent. No extra-axial fluid collections. Brain: No midline shift. No intracranial bleeds or masses. Hernandez-white matter interface appears intact. Note is made of age-appropriate brain parenchymal volume loss and chronic small vessel ischemic changes. Skull and face: Calvarium and facial bones appear intact, without suspicious lesions. Orbits appear normal. Sinuses: Sinuses and mastoids are clear. HEAD CT ANGIOGRAPHY: Anterior circulation: Intracranial internal carotid arteries are normal in size and flow. The flow within the paired anterior cerebral arteries is normal and symmetric. The flow within the middle cerebral arteries is normal and symmetric. The anterior communicating artery is seen. No aneurysms are seen. Posterior circulation: The right V4 segment is unremarkable. Only a small amount of flow is seen within the left V4 segment, which is supplied via collateral circulation. There is a normal appearing basilar artery. There is a prominent right posterior communicating artery seen, with an accompanying diminutive right P1 segment. This is attributed to a type origin of the right posterior cerebral artery, which is considered to be a normal developmental variant of typically no clinical consequence. Flow within the posterior cerebral arteries is normal and symmetric. No aneurysms are seen. NECK CT ANGIOGRAPHY: Carotid system: The great vessels demonstrate a conventional anatomy as they arise from the aortic arch. The origins of the common carotid arteries appear patent. The common carotid arteries demonstrate normal caliber and courses. The bifurcation regions demonstrate atherosclerotic irregularity, with approximately 30% narrowing seen involving the left proximal internal carotid artery, which is not regarded to be pathologic. The visualized portions of the more distal internal carotid arteries are within normal limits. However, there are portions of the internal carotid arteries are poorly seen, secondary to streak artifact from the patient's dental hardware. Posterior circulation: The right vertebral artery is unremarkable. The left vertebral artery is occluded at its origin. Soft tissues: Visualized neck soft tissues demonstrate no suspicious abnormalities. Bones: No suspicious bony lesions. Visualized cervical spine appears normally aligned. Cervical spine degenerative changes are seen, which are worst at C5-C6, with there is mild retrolisthesis and moderate to severe disc space narrowing. IMPRESSION: The left vertebral artery is occluded at its origin. There is a small amount of flow seen within the distal left V4 segment, which is supplied via collateral circulation. No significant carotid stenosis is seen. No significant intracranial arterial abnormality is seen. Incidental note is made of: type origin of the right posterior cerebral artery Brain parenchymal volume loss, age-appropriate Focal C5-C6 degenerative change Note: Case discussed by telephone with Dr. Hart at 11:02 a.m. [place] time on July 06, 2021. Any quantitative measurements of stenosis were performed using NASCET criteria. Dictated by: Rell Oliver M.D. on 07/06/2021 at 10:57 Approved by: Rell Oliver M.D. on 07/06/2021 at 11:04
[2021-07-06 11:49] VITALS: BP 133/77; PULSE 88; RESP 20; TEMP 36.8
--- NOTE | 2021-07-06 11:49 | PM.EVENT ---
Event Note Date Patient Seen: 07/06/21 Time Patient Seen: 11:52 Event Note: Informed by nursing staff patient unable to speak or move. She had felt bilateral hand tingling earlier. Exact last known normal not entirely known, patient had been seen this morning, was lying flat in bed but full neurological assessment was not performed. Code Stroke was activated. Patient seen by teleneurologist. CT head and CTA head neck performed. Results pending. No tPa recommended by stroke team due to recent surgery and uncertain last known normal. Recommended repeat CT in 24 hours given history of PPM to rule out acute infarct but as of this time etiology appears more toxic/metabolic.
[2021-07-06 12:36] LABS: Magnesium 1.9 mg/dL (1.6-2.3)
[2021-07-06 12:37] LABS: Alanine Aminotransferase 21 IU/L (<35); Albumin 3.3 g/dL (3.5-5.0); Albumin Globulin Ratio 1.3 (1.0-2.8); Alkaline Phosphatase 111 U/L (38-126); Aspartate Aminotransferase 42 IU/L (14-36); BUN Creatinine Ratio 17.6 (6-22); Bilirubin Total 0.5 mg/dL (0.2-1.3); Blood Urea Nitrogen 13 mg/dL (7-17); Calcium 8.9 mg/dL (8.4-10.2); Carbon Dioxide 23 mmol/L (22-32); Chloride 100 mmol/L (98-107); Estimated Glomerular Filt Rate > 60.0 mL/min (>60); Globulin 2.6 g/dL (1.7-4.1); Glucose 95 mg/dL (80-110); HEMOLYSIS < 15 (0-50); Potassium 4.8 mmol/L (3.4-5.1); Sodium 131 mmol/L (137-145); Total Protein 5.9 g/dL (6.3-8.2)
[2021-07-06 12:49] LABS: Troponin I < 0.012 ng/mL (0.01-0.034)
--- NOTE | 2021-07-06 12:56 | PM.PN.1 ---
Subjective Subjective Date Patient Seen: 07/06/21 Time Patient Seen: 12:56 Interval history: Informed by nursing staff patient unable to speak or move. She had felt bilateral hand tingling earlier. Exact last known normal not entirely known, patient had been seen this morning, was lying flat in bed but full neurological assessment was not performed. Code Stroke was activated. Patient seen by teleneurologist. CT head and CTA head neck performed. Results pending. No tPa recommended by stroke team due to recent surgery and uncertain last known normal. Recommended repeat CT in 24 hours given history of PPM to rule out acute infarct but as of this time etiology appears more toxic/metabolic. Exam Vital Signs (past 8 hours): - 07/06/21 06:05 07/06/21 07:45 Temperature 97.0 F L 97.6 F Pulse Rate 85 79 Respiratory Rate 16 16 Blood Pressure 107/59 L 98/48 L Pulse Oximetry 97 94 Oxygen Delivery Method Room Air Oxygen Flow Rate 0 Narrative Exam Narrative: GENERAL APPEARANCE: Well developed, well nourished, hoarse voice, speech soft. SKIN: Inspection of the skin reveals no rashes, ulcerations or petechiae. HEENT: Normocephalic atraumatic, extraocular muscles are intact, oropharynx is clear and mucous membranes are moist, neck is supple without adenopathy NECK: Supple and symmetric. There was no thyroid enlargement, and no tenderness, or masses were felt. CHEST: Normal AP diameter and normal contour without any kyphoscoliosis. LUNGS: Auscultation of the lungs revealed no wheezes, rhonchi, or rales. CARDIOVASCULAR: There was a regular rate and rhythm without any murmurs, gallops, rubs. Peripheral pulses were 2+ and symmetric. ABDOMEN: Soft and nontender with normal bowel sounds. No ascites was noted. MUSCULOSKELETAL: There was no tenderness or effusions noted. Muscle strength and tone were normal. EXTREMITIES: No cyanosis, clubbing or edema. NEUROLOGIC: Alert and oriented x 3. some slowed speech and very soft compared to prior, but no slurring and no facial weakness or numbness. Bilateral weakness, left slightly greater than right. No deficits in sensation to light touch. Objective Labs Result Diagrams: 07/04/21 05:25 07/06/21 12:11 Labs: Laboratory Results - last 24 hr 07/05/21 07/06/21 07/06/21 10:16 05:35 12:11 Sodium 130 L Potassium 4.9 Chloride 98 Carbon Dioxide 29 BUN 14 Creatinine 0.78 Estimated GFR > 60.0 BUN/Creatinine Ratio 17.9 Glucose 94 Calcium 8.9 Magnesium 1.9 Total Bilirubin AST ALT Alkaline Phosphatase Troponin I < 0.012 Total Protein Albumin Globulin Albumin/Globulin Ratio Urine Osmolality 216 07/06/21 12:11 Sodium 131 L Potassium 4.8 Chloride 100 Carbon Dioxide 23 BUN 13 Creatinine 0.74 Estimated GFR > 60.0 BUN/Creatinine Ratio 17.6 Glucose 95 Calcium 8.9 Magnesium Total Bilirubin 0.5 AST 42 H ALT 21 Alkaline Phosphatase 111 Troponin I Total Protein 5.9 L Albumin 3.3 L Globulin 2.6 Albumin/Globulin Ratio 1.3 Urine Osmolality [facility] Medical History CAD (coronary artery disease) Constipation Depression Diastolic heart failure Family history of dementia Hearing loss in left ear Heartburn HTN (hypertension) Insomnia Pacemaker (11/24/20) Pneumonia (11/24/20) Primary osteoarthritis of right knee Trigeminal neuralgia of left side of face (~11/2019) Surgical History H/O bursectomy H/O repair of rotator cuff History of cholecystectomy History of hysterectomy History of knee surgery 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 Madrigal is a 80W admitted for L TKA who had episode of dizziness, found to have hypotension, and hyponatremia. 1. Symptomatic hypotension with hyponatremia with mild aortic stenosis -patient with positive orthostatic vital signs -likely especially sensitive to fluid shifts due to aortic stenosis -ordered for additional IV fluid and improved blood pressure -urine sodium at 54, consistent with SIADH -urine osms also pending -patient was hypotensive, attempted fluid bolus today. With some improvement in blood pressures. Na did improve to 131. -increase salt tabs to TID. -EKG shows paced rhythm, with no acute abnormalities, troponin negative 2. L knee osteoarthritis s/p TKA -management per ortho 3. s/p PPM -doubt symptoms related to PPM dysfunction -dc tele 4. Acute weakness, speech difficulty - patient with bilateral acute weakness starting suddently and speech deficits, they did improve slightly. Appears more metabolic possibly related to orthostasis or pain medications this AM. Code stroke was called. CT head and CTA head neck without acute abnormalities. Recommend repeat head CT in 24 hours to reassess, given history of PPM to evaluate for possible stroke if symptoms persist. Not a tPA candidate given unknown last known normal and recent surgery. - EKG without changes, troponin negative, no chest pain - restart tele to evaluate for any possible PPM dysfunction though this is unlikely. Time Spent With Patient Critical Care time: I spent a total of [] minutes of critical care time on this patient's care today; this time is exclusive of procedural time.
[2021-07-06 13:15] LABS: TSH w/ Reflex to FT4 5.47 uIU/mL (0.47-4.68)
[2021-07-06 13:49] LABS: Free T4, Direct Thyroxine 1.13 ng/dL (0.78-2.19)
--- NOTE | 2021-07-06 14:50 | PT.IPTN ---
Current Diagnoses Postprocedural hypotension (07/04/21) Surgery Performed Operation Date: 07/03/21 11:15 Actual Procedures p Total Knee Arthroplasty(Left) - Nash Gregorio MD Physical Therapy Treatment Note M2 PT-IP Current Condition Start: 07/03/21 15:33 Freq: NEEDED Status: Active Protocol: Document 07/05/21 15:32 ER (Rec: 07/05/21 17:07 ER [id number]) Physical Therapy Current Condition Current Condition Evaluation Date 07/04/21 Treatment Diagnosis s/p L TKA; difficulty in walking Onset Date 07/03/21 M3 PT-IP Subjective Start: 07/03/21 15:33 Freq: NEEDED Status: Active Protocol: Document 07/06/21 14:32 KS (Rec: 07/06/21 15:28 KS [id number]) Subjective Physical Therapy Visit Type Type Treatment Note Visit Start Time 14:32 Visit Stop Time 14:50 Total Visit Minutes 18 Number of SALOON KEEPER Visits 3 Physical Therapy Visit Comments Patient Comments Pt agreeable to work with PT. Pts daughter in room. M4 PT-IP Mobility and Gait Start: 07/03/21 15:33 Freq: NEEDED Status: Active Protocol: Document 07/06/21 14:32 KS (Rec: 07/06/21 15:28 KS [id number]) PT-Bed Mobility Assessment Supine to Sit Supine to Sit Standby Assistance Scooting Scooting to Edge of Bed Contact Guard Assistance PT-Transfer Assessment Sit to and From Stand Sit to and from Stand Contact Guard Assistance,1 Person Assistance Equipment Transfer Assistive Device Gait Belt,Front Wheeled Walker Orthotic/Prosthetic Devices or Brace: No Transfers Transfer Destination Toilet Transfer Technique ambulated Transfer Ability Level of Assist Contact Guard Assistance,1 Person Assistance,Use of Upper Extremities Comments Mobility Comments Pt in bed w/ daughter in room. Pt needed encouragement from her daughter to participate. CGA for sup<>sit and scooting EOB, CGA and cues for sit<> stand w/ FWW. Pt able to perform [address] and then requested to look out window. Pt maintained standing balance for ~3 min w / FWW while looking out of window CGA. She then ambulated ~50 ft around room w/ FWW and CGA. Pt demonstrated good use of FWW. She then reported fatigue and requested to go back to bed, but then asked to use toilet in hopes of having a BM. Pt left on toilet w/ daughter in room, call light in reach, and RN notified. Gait Assessment Gait Gait Assistance Required: Contact Guard Assist,1 Person Assist Distance (Feet) 50 Able to Maintain Weight Bearing Status Yes During Gait Assistive Devices Assistive Device Gait Belt,Front Wheeled Walker Orthotic/Prosthetic Devices or Brace: No Gait Deviations General Gait Pattern Decreased Stride Length Factors Limiting Gait Function Factors Limiting Gait Function Decreased Activity Tolerance, Decreased Strength,Poor Balance Comments Gait Comments Pt ambulated ~50 ft around room w/ FWW CGA. Pt used FWW approrpriately. PT-Balance Assessment Sitting Balance and Reactions Static Sitting Balance Ability Good Dynamic Sitting Balance Ability Good Standing Balance and Reactions Static Standing Balance Ability Good Dynamic Standing Balance Ability Fair Device Used FWW M5 PT-IP Objective Assessments Start: 07/03/21 15:33 Freq: NEEDED Status: Active Protocol: Document 07/04/21 11:05 AB (Rec: 07/04/21 12:21 AB [id number]) Orientation Orientation/Cognition Level of Alertness Alert Orientation Name Safety Awareness Decreased Safety Awareness Memory Description Short Term Impaired Gross Range of Motion Lower Extremity ROM Assessment Within Functional Limits Strength Lower Extremity Strength Assessment Left Impaired Hip 4/5 Knee 4-/5 Coordination Assessment Gross Coordination Gross Coordination WNL Sensation Assessment Sensation Gross Sensation WNL Muscle Tone Muscle Tone WNL Yes M6 PT-IP Treatment Start: 07/03/21 15:33 Freq: NEEDED Status: Active Protocol: Document 07/06/21 14:32 KS (Rec: 07/06/21 15:28 KS [id number]) Physical Therapy Treatment Education Education Provided Safety M7 PT-IP Assessment and Plan Start: 07/03/21 15:33 Freq: NEEDED Status: Active Protocol: Document 07/06/21 14:32 KS (Rec: 07/06/21 15:28 KS [id number]) PT Summary Assessment and Plan Potential Rehabilitation Potential Fair Status of Condition at Evaluation Evolving Summary Impairments Pain,ROM,Strength,Balance, Coordination,Sensation,Tone, Cognition,Bed Mobility, Transfers,Gait,Activity Tolerance Progress Towards Goals Progressing Toward Goals,Slow Progress due to Activity Tolerance,Slow Progress - Other Assessment Summary Pt CGA for bed mobility, transfer, and ambulation today . Able to tolerate ~50 ft ambulation w/ FWW and 3 min standing balance w/ FWW. Anticipate pt to be safe to d/ c home when medically stable and begin outpatient PT to improve strength and ROM. Goals Bed Mobility Goal Independent Transfer Goal Standby Assistance,Front Wheeled Walker Gait Goal Standby Assistance,Front Wheel Walker Gait Distance 200 Days to Meet Goals 5 Frequency of Treatment Frequency Of Treatment Twice a Day Treatment Plan Physical Therapy Treatment Plan Bed Mobility Training,Transfer Training,Gait Training, Therapeutic Exercise,Balance Retraining,Post Op Education, Discharge Planning,Hot or Cold Pack,Neuromuscular Re-ed, Coordination Retraining,Manual Therapy Other Recommendations and Next Treatment Increased distance in gait Focus training with FWW Weight Bearing Status Weight Bearing Status Weight Bear as Tolerated Allowed Weight Bearing Amount (enter % LLE INDERJIT or #) (%) Recommendations To Nursing Amount of Assist Needed 1 Person Assist Discharge Recommendations PT Discharge Recommendations Home with Assistance, Outpatient PT Transportation Needs at Discharge Private Vehicle
[2021-07-06 16:00] VITALS: BP 142/74; BP 146/66; PULSE 80; PULSE 83; RESP 16; TEMP 36.1; O2SAT 99
[2021-07-06] MEDS: BISACODYL 5 MG TABLET PO (17:38)
--- NOTE | 2021-07-06 18:58 | PC.NURSE ---
Pt this a.m. assessed and is alert but feeling odd. While lying flat in bed she states I cant tell if I fell back to sleep or if I'm fainting and reports feeling scared. Reassured patient. Administered 1L NS bolus per orders. She tolerated well however complained of altered sensation, coolness and tingling in her hands. Pt with slight weakness noted in hand but able to move fingers. At approximately 1030 this a.m. daughter arrives and reports her behavior is different, OT at bedside reports to RN that patient is not speaking. RN noted unable to find words and increasing weakness to arms. Notified MD and stroke code called to r/o stroke. She was taken for CT scan, EKG done (showing v paced rhythm), labs drawn. No noted side effects/reaction to having had iodine. Per teleneurologist stroke unlikely and per risk factors, unknown last normal not a good candidate for TPA. Pt VSS, remain stable. Slightly hypotensive from sitting to standing 144/77 to 125/68 this afternoon, she denies dizziness. OT is able to return to work with patient and she does well ambulating with min assist to CGA. She reports pain well controlled with prn oxycodone 10 mg and scheduled medications. Daughter and patient express concern with patient's history of constipation, although given miralax and scheduled docusate she reports day 4 without a BM. MD notified and RN administered bisacodyl PRN per new orders. Continuous monitoring.
[2021-07-06 19:30] VITALS: BP 102/59; PULSE 89; RESP 18; TEMP 37.1; O2SAT 98
[2021-07-06 20:00] VITALS: BP 102/59; BP 124/63; BP 97/42; PULSE 88; PULSE 89; PULSE 91
[2021-07-06] MEDS: PREGABALIN 50 MG CAPSULE PO (21:46)
[2021-07-06] MEDS: MELATONIN 3 MG TABLET 9 MG PO (21:47)
[2021-07-06] MEDS: GABAPENTIN 100 MG CAPSULE 200 MG PO (21:47)
[2021-07-06] MEDS: hydrOXYzine pamoate 25 MG CAPSULE PO (21:49)
[2021-07-07] VITALS (7 sets, daily range): BP systolic 113–155; BP diastolic 45–67; PULSE 71–91; RESP 16–19; TEMP 35.9–36.8; O2SAT 94–100
[2021-07-07] MEDS: SODIUM CHLORIDE 1,000 MG TABLET 1000 MG PO ×4 (01:07→20:54)
--- NOTE | 2021-07-07 02:24 | PC.NURSE ---
patient more withdrawn today, compared to yesterday. answers ?s appropriately. denies BTP to LTKA. which is elevated on a pillow, and two ice packs on either side of knee; resting on pilows. inner knee is much improved from yesterday's assesment. declined against PRN pain med. call light w/in reach.
[2021-07-07] MEDS: IBUPROFEN 400 MG TABLET PO ×5 (06:27→20:17)
[2021-07-07] MEDS: PANTOPRAZOLE DR 20 MG TABLET PO (06:28)
--- NOTE | 2021-07-07 08:53 | PT.IPTN ---
Current Diagnoses Postprocedural hypotension (07/04/21) Surgery Performed Operation Date: 07/03/21 11:15 Actual Procedures p Total Knee Arthroplasty(Left) - Nash Gregorio MD Physical Therapy Treatment Note M2 PT-IP Current Condition Start: 07/03/21 15:33 Freq: NEEDED Status: Active Protocol: Document 07/05/21 15:32 ER (Rec: 07/05/21 17:07 ER [id number]) Physical Therapy Current Condition Current Condition Evaluation Date 07/04/21 Treatment Diagnosis s/p L TKA; difficulty in walking Onset Date 07/03/21 M3 PT-IP Subjective Start: 07/03/21 15:33 Freq: NEEDED Status: Active Protocol: Document 07/07/21 08:14 SP (Rec: 07/07/21 12:18 SP [email or web address]) Subjective Physical Therapy Visit Type Type Treatment Note Visit Start Time 08:14 Visit Stop Time 08:53 Total Visit Minutes 39 Notes KAREN Pepper provided 2nd person assist as needed for safety during tx while being provided direct supervision and instruction by ISMAEL Julio. VItals taken during tx: supine: 134/77 HR 94 SaO2 97% seated EOB: 150/89 HR 96 stand: 136/67 HR 90 post mobility standing at sink : 127/68 HR 87 SaO2 96% on RA. Number of ESCROW AGENT Visits 4 Physical Therapy Visit Comments Patient Comments Pt agreeableto working with therapy. Patient Goals Feeling better to return home with her grand daughter with out dizziness. Therapy Pain Assessment Pain Present Pain Present Denied Pain M4 PT-IP Mobility and Gait Start: 07/03/21 15:33 Freq: NEEDED Status: Active Protocol: Document 07/07/21 08:14 SP (Rec: 07/07/21 12:18 SP [email or web address]) PT-Bed Mobility Assessment Supine to Sit Supine to Sit Contact Guard Assistance, Bedrails Sit to Supine Sit to Supine Minimal Assistance,1 Person Assistance,Bedrails Scooting Scooting to Edge of Bed Standby Assistance,Contact Guard Assistance Scooting Up and Down in Bed Moderate Assistance PT-Transfer Assessment Sit to and From Stand Sit to and from Stand Minimal Assistance,Moderate Assistance,1 Person Assistance ,Use of Upper Extremities Equipment Transfer Assistive Device Gait Belt,Front Wheeled Walker Orthotic/Prosthetic Devices or Brace: No Transfers Transfer Destination Bed,Chair,Toilet Transfer Technique pt ambulated using FWW Transfer Ability Level of Assist Contact Guard Assistance, Minimal Assistance,1 Person Assistance,Use of Upper Extremities Comments Mobility Comments Pt was reclined in bed jsut waking up when arrived. Instructed post op ex with min A, AAROM for L knee flexion 5 -60 deg flexion. Supine>sit and scoot to EOB with increasd time require, CGA continues have dizziness. Maintained vitals throughout tx see above . Sit>stand Min A x1 CGA x1 for safety using FWW. Gait to bathroom 8 ft w/ FWW CG- Min A x1, cued for use of grab bar for self descent toilet Min A, stable sitting on toilet but states still little uneasy dizziness. Lab staff arrived, took blood draw (unable to wait til back in chair) with ESCROW AGENT providing SBA for safety. Pt was ableto void, required assist for pericare in sitting. Sit>stand Min A x1 w/ grab bar and FWW. Pt ambulated to sink 10 ft CGA- 5 %A with noted decrease foot clearance BLE and pacing w/ forward posture this tx. Standing at sink with UE support reported I dont' feel like know where I am standing , I need to sit, really dizzy , ESCROW AGENT/ SPTA provided chair behind her with Min- Mod A x1 slwo descent to chair while reaching back 1 UE. Pt reclined in chair to assist with circulation, pt reported wanted to get back to bed, not feeling up to being in chair. Sit>stand Mod A, SPT chair> bed w/ FWW CGA and slow sit on bed, good HP. Sit>supine w/ bed rail, Min A for LEs support onto bed, Mod A x2 to scoot up in bed. Pt initially wanted to be on side with provided pillow support at back, front and btwn leg but then wanted to eat breakfast, L SL>supine CGA. Replaced SCDs and notified WASTE MACHINE TENDER of pts dizziness during tx for safety . Pt had call light and all needs in reach, be alarmed, cafeteria staff in room when left. Gait Assessment Gait Gait Assistance Required: Contact Guard Assist,Minimum Assistance,1 Person Assist Distance (Feet) 10 Able to Maintain Weight Bearing Status Yes During Gait Assistive Devices Assistive Device Gait Belt,Front Wheeled Walker Orthotic/Prosthetic Devices or Brace: No Gait Deviations General Gait Pattern Antalgic,Decreased Stride Length,Decreased Feet Clearance,Flexed Trunk,Step-to Gait Factors Limiting Gait Function Factors Limiting Gait Function Decreased Activity Tolerance, Decreased Strength,Difficulty Following Directions,Poor Balance,Poor Safety Awareness Comments Gait Comments Pt decrease ambulation today, reported increased dizziness during mobility CG- Min A using FWW, decreased pacing. PT-Balance Assessment Sitting Balance and Reactions Static Sitting Balance Ability Good Dynamic Sitting Balance Ability Fair Standing Balance and Reactions Static Standing Balance Ability Fair Dynamic Standing Balance Ability Fair Device Used FWW Comments Other Balance Tests/Deviations/Treatment Static standing at sink, : increased lightheadedness, I am not sure where I am standing required sit in chair for safety CG- Ok x1-2 . M5 PT-IP Objective Assessments Start: 07/03/21 15:33 Freq: NEEDED Status: Active Protocol: Document 07/04/21 11:05 AB (Rec: 07/04/21 12:21 AB [id number]) Orientation Orientation/Cognition Level of Alertness Alert Orientation Name Safety Awareness Decreased Safety Awareness Memory Description Short Term Impaired Gross Range of Motion Lower Extremity ROM Assessment Within Functional Limits Strength Lower Extremity Strength Assessment Left Impaired Hip 4/5 Knee 4-/5 Coordination Assessment Gross Coordination Gross Coordination WNL Sensation Assessment Sensation Gross Sensation WNL Muscle Tone Muscle Tone WNL Yes M6 PT-IP Treatment Start: 07/03/21 15:33 Freq: NEEDED Status: Active Protocol: Document 07/07/21 08:14 SP (Rec: 07/07/21 12:18 SP [email or web address]) Physical Therapy Treatment Education Education Provided Safety M7 PT-IP Assessment and Plan Start: 07/03/21 15:33 Freq: NEEDED Status: Active Protocol: Document 07/07/21 08:14 SP (Rec: 07/07/21 12:18 SP [email or web address]) PT Summary Assessment and Plan Potential Rehabilitation Potential Fair Status of Condition at Evaluation Evolving Summary Impairments Pain,ROM,Strength,Balance, Coordination,Sensation,Tone, Cognition,Bed Mobility, Transfers,Gait,Activity Tolerance Progress Towards Goals Slow Progress due to Activity Tolerance,Slow Progress - Other Assessment Summary Bed mobility CGA sup>sit, Sit> sup Mod A for LEs into bed, transfers Min A, gait in room CG- Min A using FWW, standing balance at sink CG- Min w/ increased lightheadness need sit for safety in chair, pulled behind her. Pt continues to be symptomatic dizziness during position changes and worsened during mobility standing. Recommending continued skilled PT, home 24/7 assist available an HHPT due to dizziness and increase assist this tx vs. SNF for progress strength and functional strengthenging. If home recommending caregiver training with grand daughter for safety mobilizing. Goals Bed Mobility Goal Independent Transfer Goal Standby Assistance,Front Wheeled Walker Gait Goal Standby Assistance,Front Wheel Walker Gait Distance 200 Days to Meet Goals 5 Frequency of Treatment Frequency Of Treatment Twice a Day Treatment Plan Physical Therapy Treatment Plan Bed Mobility Training,Transfer Training,Gait Training, Therapeutic Exercise,Balance Retraining,Post Op Education, Discharge Planning,Hot or Cold Pack,Neuromuscular Re-ed, Coordination Retraining,Manual Therapy Other Recommendations and Next Treatment LE ex, sit<>stands, Increased Focus distance in gait training with FWW Weight Bearing Status Weight Bearing Status Weight Bear as Tolerated Allowed Weight Bearing Amount (enter % LLE INDERJIT or #) (%) Recommendations To Nursing Amount of Assist Needed 1 Person Assist Discharge Recommendations PT Discharge Recommendations Home with 24/ Assist Available,Home Health,SNF Rehab,Outpatient PT,Home vs SNF Transportation Needs at Discharge Private Vehicle,Wheelchair/ Cabulance
[2021-07-07 08:57] LABS: BUN Creatinine Ratio 21.4 (6-22); Blood Urea Nitrogen 15 mg/dL (7-17); Calcium 9.2 mg/dL (8.4-10.2); Carbon Dioxide 26 mmol/L (22-32); Chloride 103 mmol/L (98-107); Estimated Glomerular Filt Rate > 60.0 mL/min (>60); Glucose 93 mg/dL (80-110); HEMOLYSIS < 15 (0-50); Potassium 4.8 mmol/L (3.4-5.1); Sodium 135 mmol/L (137-145)
--- NOTE | 2021-07-07 09:23 | P.PN_ITS ---
Subjective Subjective Interval history: The patient reports she is feeling much better today. Exam Vital Signs (past 8 hours): - 07/07/21 02:23 07/07/21 05:45 Temperature 98.2 F 97.9 F Pulse Rate 84 90 Pulse Rate [Orthostatic Lying] 84 Pulse Rate [Orthostatic Sitting] 89 Pulse Rate [Orthostatic Standing] 91 H Respiratory Rate 18 18 Blood Pressure 114/45 L 129/63 Blood Pressure [Orthostatic Lying] 114/45 L Blood Pressure [Orthostatic Sitting] 126/67 Blood Pressure [Orthostatic Standing] 113/52 L Pulse Oximetry 99 97 Oxygen Delivery Method Room Air Oxygen Flow Rate 0 Narrative Exam Narrative: Left knee wound is dressed with minimal drainage on the bandage. Calf is soft. Light touch and motion are intact in left lower extremity. Objective Labs Result Diagrams: 07/04/21 05:25 07/07/21 08:35 Labs: Laboratory Results - last 24 hr 07/05/21 07/06/21 07/06/21 10:16 12:11 12:11 Sodium 131 L Potassium 4.8 Chloride 100 Carbon Dioxide 23 BUN 13 Creatinine 0.74 Estimated GFR > 60.0 BUN/Creatinine Ratio 17.6 Glucose 95 Calcium 8.9 Magnesium 1.9 Total Bilirubin 0.5 AST 42 H ALT 21 Alkaline Phosphatase 111 Troponin I < 0.012 Total Protein 5.9 L Albumin 3.3 L Globulin 2.6 Albumin/Globulin Ratio 1.3 TSH Free T4 Urine Osmolality 216 07/06/21 07/07/21 12:11 08:35 Sodium 135 L Potassium 4.8 Chloride 103 Carbon Dioxide 26 BUN 15 Creatinine 0.70 Estimated GFR > 60.0 BUN/Creatinine Ratio 21.4 Glucose 93 Calcium 9.2 Magnesium Total Bilirubin AST ALT Alkaline Phosphatase Troponin I Total Protein Albumin Globulin Albumin/Globulin Ratio TSH 5.47 H Free T4 1.13 Urine Osmolality [facility] Medical History CAD (coronary artery disease) Constipation Depression Diastolic heart failure Family history of dementia Hearing loss in left ear Heartburn HTN (hypertension) Insomnia Pacemaker (11/24/20) Pneumonia (11/24/20) Primary osteoarthritis of right knee Trigeminal neuralgia of left side of face (~11/2019) Surgical History H/O bursectomy H/O repair of rotator cuff History of cholecystectomy History of hysterectomy History of knee surgery 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) Family History Mother Old age Father Myocardial infarction Social History household members: family Smoking Status: Former smoker alcohol intake: current Assessment & Plan Post-op Postoperative Procedures: Procedures Operation Date: 07/03/21 11:15 Actual Procedure Side Surgeon p Total Knee Arthroplasty Left Nash Gregorio MD Postoperative day: 4 Postoperative status: doing well and other (Mental status and neurologic issues) Postoperative plan: routine post-op care, ambulate and discharge Postoperative plan narrative: From the standpoint of her left knee, the patient is doing reasonably well. She has had significant changes in mental status which have been under the evaluation of the hospitalist with the assistance of the tele stroke consults. Once she is cleared by Medicine she can be discharged for additional long-term postoperative rehabilitative work for her knee. I anticipate this will be over the next 1-2 days. Time Spent With Patient Time with patient: less than 15 minutes
[2021-07-07] MEDS: ACETAMINOPHEN 325 MG TABLET 650 MG PO ×3 (09:25→20:17)
[2021-07-07] MEDS: DULOXETINE 30 MG CAPSULE PO (09:26)
[2021-07-07] MEDS: ASPIRIN EC 81 MG TABLET PO ×2 (09:26→20:17)
[2021-07-07] MEDS: FERROUS SULFATE 325 MG TABLET PO (09:27)
[2021-07-07] MEDS: OXYCODONE IR 10 MG TABLET PO ×3 (09:31→17:41)
--- NOTE | 2021-07-07 11:48 | PM.PN.1 ---
Subjective Subjective Date Patient Seen: 07/07/21 Time Patient Seen: 11:50 Interval history: No current neurological symptoms. Speech returned to baseline, no weakness noted. She remains orthostatic and dizzy with standing. Exam Vital Signs (past 8 hours): - 07/07/21 05:45 07/07/21 10:10 Temperature 97.9 F 98.3 F Pulse Rate 90 78 Respiratory Rate 18 16 Blood Pressure 129/63 133/48 L Pulse Oximetry 97 100 Oxygen Delivery Method Room Air Oxygen Flow Rate 0 Narrative Exam Narrative: ?GENERAL APPEARANCE: Well developed, well nourished, no acute distress. SKIN: Inspection of the skin reveals no rashes, ulcerations or petechiae. HEENT:? Normocephalic atraumatic, extraocular muscles are intact, oropharynx is clear and mucous membranes are moist, neck is supple without adenopathy NECK: Supple and symmetric. There was no thyroid enlargement, and no tenderness, or masses were felt. CHEST: Normal AP diameter and normal contour without any kyphoscoliosis. LUNGS: Auscultation of the lungs revealed no wheezes, rhonchi, or rales. CARDIOVASCULAR: There was a regular rate and rhythm without any murmurs, gallops, rubs. Peripheral pulses were 2+ and symmetric. ABDOMEN: Soft and nontender with normal bowel sounds. No ascites was noted. MUSCULOSKELETAL: There was no tenderness or effusions noted. Left leg bandages C/d/i. EXTREMITIES: No cyanosis, clubbing or edema. L leg swollen compared to right after recent surgery. NEUROLOGIC: Alert and oriented x 3. improved speech and weakness compared to yesterday. Objective Labs Result Diagrams: 07/04/21 05:25 07/07/21 08:35 Labs: Laboratory Results - last 24 hr 07/06/21 07/06/21 07/06/21 12:11 12:11 12:11 Sodium 131 L Potassium 4.8 Chloride 100 Carbon Dioxide 23 BUN 13 Creatinine 0.74 Estimated GFR > 60.0 BUN/Creatinine Ratio 17.6 Glucose 95 Calcium 8.9 Magnesium 1.9 Total Bilirubin 0.5 AST 42 H ALT 21 Alkaline Phosphatase 111 Troponin I < 0.012 Total Protein 5.9 L Albumin 3.3 L Globulin 2.6 Albumin/Globulin Ratio 1.3 TSH 5.47 H Free T4 1.13 07/07/21 08:35 Sodium 135 L Potassium 4.8 Chloride 103 Carbon Dioxide 26 BUN 15 Creatinine 0.70 Estimated GFR > 60.0 BUN/Creatinine Ratio 21.4 Glucose 93 Calcium 9.2 Magnesium Total Bilirubin AST ALT Alkaline Phosphatase Troponin I Total Protein Albumin Globulin Albumin/Globulin Ratio TSH Free T4 PFSH Medical History CAD (coronary artery disease) Constipation Depression Diastolic heart failure Family history of dementia Hearing loss in left ear Heartburn HTN (hypertension) Insomnia Pacemaker (11/24/20) Pneumonia (11/24/20) Primary osteoarthritis of right knee Trigeminal neuralgia of left side of face (~11/2019) Surgical History H/O bursectomy H/O repair of rotator cuff History of cholecystectomy History of hysterectomy History of knee surgery 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 Madrigal is a 80W admitted for L TKA who had episode of dizziness, found to have hypotension, and hyponatremia. 1. Symptomatic hypotension with hyponatremia with mild aortic stenosis -patient with positive orthostatic vital signs, continued symptoms today. -likely especially sensitive to fluid shifts due to aortic stenosis -ordered for additional IV fluid today, blood pressures improved but still symptomatic. -urine sodium at 54, consistent with SIADH. 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 -increased salt tabs to TID. Na now resolved. -EKG shows paced rhythm, with no acute abnormalities, troponin negative 2. L knee osteoarthritis s/p TKA -management per ortho 3. s/p PPM -doubt symptoms related to PPM dysfunction -dc tele 4. Acute weakness, speech difficulty, resolved ?- patient with bilateral acute weakness starting suddently and speech deficits, they did improve slightly. Appears more metabolic possibly related to orthostasis or pain medications this AM. Code stroke was called. CT head and CTA head neck without acute abnormalities. Recommend repeat head CT in 24 hours to reassess, given history of PPM to evaluate for possible stroke if symptoms persist. Not a tPA candidate given unknown last known normal and recent surgery. - EKG without changes, troponin negative, no chest pain ?- restarted tele to evaluate for any possible PPM dysfunction though this is unlikely. - will repeat CT head today to make sure no CVA given continued dizziness. -differential does include TIA, she is on aspirin daily would recommend statin though she states she is allergic. Another possibility is a toxic encephalopathy due to opiate pain medications as it did happen shortly after administration. Patient remains symptomatic from orthostasis, acute etiologies seemingly resolved. Would recommend PMD follow up as long as repeat CT head negative. Patient may discharge home once orthostatic hypotension symptoms improve, though this may take some time. Time Spent With Patient Critical Care time: I spent a total of [] minutes of critical care time on this patient's care today; this time is exclusive of procedural time.
--- NOTE | 2021-07-07 11:49 | DI.CT.S_ITS ---
PROCEDURE: CT HEAD/BRAIN WO CON INDICATIONS: [address], ? CVA, has PPM no MRI TECHNIQUE: Noncontrast 4.5 mm thick angled axial sections acquired from the foramen magnum to the vertex, with coronal and sagittal reformats. For radiation dose reduction, the following was used: automated exposure control, adjustment of mA and/or kV according to patient size. COMPARISON: [facility], CT, CT HEAD WITHOUT CONTRAST, 11/04/2019, 15:15. [facility], MR, MR HEAD/BRAIN WO/W CON, 07/29/2019, 12:32. [facility], CT, CT ANGIO HEAD AND NECK, 07/06/2021, 11:15. [facility], CT, CT STROKE, 07/06/2021, 11:12. FINDINGS: Image quality: Excellent. CSF spaces: Basal cisterns are patent. No extra-axial fluid collections. The ventricles are symmetric in size and shape. Brain: No intracranial bleeds or masses. There is moderate cerebral volume loss for age, with resultant ventricular and sulcal prominence. There are mild periventricular and deep white matter chronic small vessel ischemic changes. There is intracranial internal carotid artery atherosclerosis. Skull and face: Calvarium and visualized facial bones appear intact, without suspicious lesions. Sinuses: Mild maxillary sinus mucosal thickening. The mastoids are clear. IMPRESSION: 1. No acute intracranial abnormalities. 2. Cerebral volume loss and chronic microvascular ischemic changes. Dictated by: Jed Cadena M.D. on 07/07/2021 at 12:28 Approved by: Jed Cadena M.D. on 07/07/2021 at 12:33
[2021-07-07] MEDS: SODIUM CHLORIDE 0.9% 1,000 ML 1000 ML IV (12:40)
--- NOTE | 2021-07-07 14:04 | PM.PNPO.1 ---
Subjective Subjective Date Patient Seen: 07/07/21 Time Patient Seen: 14:04 Interval history: The patient is complaining of mild left knee pain this morning. On she had a code stroke called yesterday afternoon/evening due to dizziness and difficulty with speech. She has had a repeat CT scan today as well as a cardiac workup, which were negative. Overall she is improving. The plan is to keep her overnight as she lives on [facility] with her niece. Exam Vital Signs (past 8 hours): - 07/07/21 10:10 07/07/21 13:11 Temperature 98.3 F Pulse Rate 78 Pulse Rate [Left Dorsalis Pedis] 80 Respiratory Rate 16 Blood Pressure 133/48 L Pulse Oximetry 100 Oxygen Delivery Method Room Air Oxygen Flow Rate 0 Narrative Exam Narrative: Pleasant 80-year-old female, resting comfortably in her chair, no acute distress. Dressing demonstrates scant area of serous sanguinous drainage on the proximal aspect of the incision. Bilateral lower extremity motor function is grossly intact. Sensation is grossly intact to light touch bilateral lower extremities. Calves are soft, nontender to palpation. Objective Labs Result Diagrams: 07/04/21 05:25 07/07/21 08:35 Labs: Laboratory Results - last 24 hr 07/07/21 08:35 Sodium 135 L Potassium 4.8 Chloride 103 Carbon Dioxide 26 BUN 15 Creatinine 0.70 Estimated GFR > 60.0 BUN/Creatinine Ratio 21.4 Glucose 93 Calcium 9.2 PFSH Medical History CAD (coronary artery disease) Constipation Depression Diastolic heart failure Family history of dementia Hearing loss in left ear Heartburn HTN (hypertension) Insomnia Pacemaker (11/24/20) Pneumonia (11/24/20) Primary osteoarthritis of right knee Trigeminal neuralgia of left side of face (~11/2019) Surgical History H/O bursectomy H/O repair of rotator cuff History of cholecystectomy History of hysterectomy History of knee surgery 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) Family History Mother Old age Father Myocardial infarction Social History household members: family Smoking Status: Former smoker alcohol intake: current Assessment & Plan Post-op Postoperative Procedures: Procedures Operation Date: 07/03/21 11:15 Actual Procedure Side Surgeon p Total Knee Arthroplasty Left Nash Gregorio MD Postoperative day: 4 Postoperative status narrative: Status post left total knee arthroplasty -Symptomatic hypotension with hyponatremia with mild aortic stenosis - s/p PPM - Acute weakness, speech difficulty, resolved. Postoperative plan narrative: -mobilize with PT. Weightbearing as tolerated with front wheel walker -continue with current pain regimen and DVT prophylaxis -likely DC home tomorrow, based on hospitalist recommendations for her acute medical issues, see below Hospitalist is managing: -Symptomatic hypotension with hyponatremia with mild aortic stenosis - s/p PPM - Acute weakness, speech difficulty, resolved. Patient remains symptomatic from orthostasis, acute etiologies seemingly resolved. Would recommend PMD follow up as long as repeat CT head negative. Patient may discharge home once orthostatic hypotension symptoms improve, though this may take some time.
--- NOTE | 2021-07-07 18:46 | PC.NURSE ---
Pt is A&Ox3 this a.m. Neurologically improved without difficulty with word finding or motor skills/ weakness in arms or extremities like previous day when stroke code called. Pt still complaining of dizziness with standing and still with ortho static BP. Sodium on a.m. labs improved from 131 to 135 today. Administered 1 L NS bolus per MD orders and repeat head CT performed with no intracranial abnormalities. This afternoon patient still with drop in BP's from lying/sitting 140/70's to 128/63 with standing. Pt appears to recover from dizziness and is able to ambulate around the room and to the bathroom but reports that the dizziness takes time to resolve. Pt with good po intake and reports finally having x3 BM's today after laxatives and day 5 without a BM. Pt denies diarrhea. L knee and LLE with +1 edema and bruising. She ambulates with FWW CGA, steady gait and reports pain well controlled with PRN oxycodone 10mg PRN and scheduled pain medications
[2021-07-07] MEDS: MELATONIN 3 MG TABLET 9 MG PO (20:17)
[2021-07-07] MEDS: hydrOXYzine pamoate 25 MG CAPSULE PO (20:17)
[2021-07-07] MEDS: DOCUSATE 100 MG CAPSULE PO (20:17)
[2021-07-07] MEDS: GABAPENTIN 100 MG CAPSULE 200 MG PO (20:17)
[2021-07-07] MEDS: PREGABALIN 50 MG CAPSULE PO (20:17)
[2021-07-08] VITALS (7 sets, daily range): BP systolic 146–177; BP diastolic 2–77; PULSE 78–102; RESP 16–18; TEMP 36.3–37.1; O2SAT 98–100
[2021-07-08] MEDS: PANTOPRAZOLE DR 20 MG TABLET PO (05:42)
[2021-07-08] MEDS: IBUPROFEN 400 MG TABLET PO ×3 (05:42→13:23)
[2021-07-08 06:43] LABS: Blood Urea Nitrogen 18 mg/dL (7-17); Calcium 9.1 mg/dL (8.4-10.2); Carbon Dioxide 27 mmol/L (22-32); Chloride 104 mmol/L (98-107); Estimated Glomerular Filt Rate > 60.0 mL/min (>60); Glucose 88 mg/dL (80-110); HEMOLYSIS < 15 (0-50); Magnesium 1.8 mg/dL (1.6-2.3); Potassium 4.4 mmol/L (3.4-5.1); Sodium 137 mmol/L (137-145)
[2021-07-08] MEDS: FERROUS SULFATE 325 MG TABLET PO (09:35)
[2021-07-08] MEDS: ASPIRIN EC 81 MG TABLET PO (09:35)
[2021-07-08] MEDS: DOCUSATE 100 MG CAPSULE PO (09:35)
[2021-07-08] MEDS: DULOXETINE 30 MG CAPSULE PO (09:35)
[2021-07-08] MEDS: ACETAMINOPHEN 325 MG TABLET 650 MG PO (09:35)
[2021-07-08] MEDS: SODIUM CHLORIDE 1,000 MG TABLET 1000 MG PO (09:37)
[2021-07-08] MEDS: ONDANSETRON 4 MG/2 ML INJ IV (09:48)
--- NOTE | 2021-07-08 10:00 | PT.IPTN ---
Current Diagnoses Postprocedural hypotension (07/04/21) Surgery Performed Operation Date: 07/03/21 11:15 Actual Procedures p Total Knee Arthroplasty(Left) - Nash Gregorio MD Physical Therapy Treatment Note M2 PT-IP Current Condition Start: 07/03/21 15:33 Freq: NEEDED Status: Active Protocol: Document 07/08/21 09:28 SP (Rec: 07/08/21 13:41 SP [id number]) Physical Therapy Current Condition Current Condition Evaluation Date 07/04/21 Treatment Diagnosis s/p L TKA; difficulty in walking Onset Date 07/03/21 M3 PT-IP Subjective Start: 07/03/21 15:33 Freq: NEEDED Status: Active Protocol: Document 07/08/21 09:28 SP (Rec: 07/08/21 13:41 SP [id number]) Subjective Physical Therapy Visit Type Type Treatment Note Visit Start Time 09:28 Visit Stop Time 10:00 Total Visit Minutes 32 Notes Vitals taken during tx: supine 150/59 HR 87 99% SaO2 on RA seated EOB: 167/62 HR 97 stand: 177/64 HR 102 Supine due to lightheadness/ nausea: 191/80 HR 129 Number of FUR COMBER Visits 5 Physical Therapy Visit Comments Patient Comments Pt reported confusing story when arrived I thought I was scraping paint earlier when my nurse Elijah was here. I wasnt able to move my L knee, had alot of pain over my L barrow. Patient Goals Feeling better to return home with her grand daughter with out dizziness. Therapy Pain Assessment Pain When Pain Assessed During Mobility Pain Present Pain Present Pain Reported Location L barrow Intensity 3 Scale Used bruised barrow tender touch and with movement Description Tender,With Movement Pain Behaviors Facial Grimacing M4 PT-IP Mobility and Gait Start: 07/03/21 15:33 Freq: NEEDED Status: Active Protocol: Document 07/08/21 09:28 SP (Rec: 07/08/21 13:41 SP [id number]) PT-Bed Mobility Assessment Supine to Sit Supine to Sit Standby Assistance,Bedrails Sit to Supine Sit to Supine Standby Assistance,Bedrails Scooting Scooting to Edge of Bed Standby Assistance Scooting Up and Down in Bed Moderate Assistance PT-Transfer Assessment Sit to and From Stand Sit to and from Stand Contact Guard Assistance, Minimal Assistance,1 Person Assistance,Use of Upper Extremities Equipment Transfer Assistive Device Gait Belt,Front Wheeled Walker Orthotic/Prosthetic Devices or Brace: No Comments Mobility Comments Pt supine in bed when arrived, stated pain over L barrow, noted bruising on L barrow, called nurse Amy for notification. FUR COMBER reported to nurse L barrow didn't have any bruising past 2 day on Lshin and pt reports doesn't remember bumping her barrow in anything. Nurse noted and provided meds. Pt completed HOB flat supine>sit, scoot EOB SBA, she required BUE support to get LLE to EOB, decreased self LLE strength mobilty to EOB this tx. Pt reported nausea and required emesis bag not sure if pills stuck going down. FUR COMBER provided water to drink, improved but still little nausea and only saliva spit into bag. Pt stated dizzy but willing to stand and move around. Sit> Stand CGA using FWW. Pt's BP elevated 177/64 and reported dizziness worsening and needed to sit and lay down. Stand> sit>supine CGA. Scoot up in bed use of bed rails pt BUE and R knee bent WB on bed Mod A to scoot up in bed usign transfer pad. Pt had call from daughter before leaving, pt and FUR COMBER discussed over speaker phone how pt was mobilizing CGA, BP elevated and continued dizziness and nausea didn't progress mobility due to safety concern . Pt had call light and all needs in reach before left. FUR COMBER reported mobility, dizziness and BPs to nurse. Nurse stated pt may have DC orders later today and will speak with physician and daughter for DC possible awareness in pm for if need coordinate ferry to [place]. Gait Assessment Comments Gait Comments Did not get to progress gait due to dizziness and nausea in standing. Stair Climbing Assessment Comments Stair Climbing Comments No stair to assess at home PT-Balance Assessment Sitting Balance and Reactions Static Sitting Balance Ability Good Dynamic Sitting Balance Ability Fair Standing Balance and Reactions Static Standing Balance Ability Fair Dynamic Standing Balance Ability Fair Device Used FWW Comments Other Balance Tests/Deviations/Treatment Static stand w/ FWW at EOB : unsteady CGA with noted trunk sway UE mod WB on FWW, self recovery during vital assessment, dizziness and nausea worsening, requested to lay back down.. M5 PT-IP Objective Assessments Start: 07/03/21 15:33 Freq: NEEDED Status: Active Protocol: Document 07/04/21 11:05 AB (Rec: 07/04/21 12:21 AB [id number]) Orientation Orientation/Cognition Level of Alertness Alert Orientation Name Safety Awareness Decreased Safety Awareness Memory Description Short Term Impaired Gross Range of Motion Lower Extremity ROM Assessment Within Functional Limits Strength Lower Extremity Strength Assessment Left Impaired Hip 4/5 Knee 4-/5 Coordination Assessment Gross Coordination Gross Coordination WNL Sensation Assessment Sensation Gross Sensation WNL Muscle Tone Muscle Tone WNL Yes M6 PT-IP Treatment Start: 07/03/21 15:33 Freq: NEEDED Status: Active Protocol: Document 07/08/21 09:28 SP (Rec: 07/08/21 13:41 SP [id number]) Physical Therapy Treatment Education Education Provided Safety M7 PT-IP Assessment and Plan Start: 07/03/21 15:33 Freq: NEEDED Status: Active Protocol: Document 07/08/21 09:28 SP (Rec: 07/08/21 13:41 SP [id number]) PT Summary Assessment and Plan Potential Rehabilitation Potential Fair Status of Condition at Evaluation Evolving Summary Impairments Pain,ROM,Strength,Balance, Coordination,Sensation,Tone, Cognition,Bed Mobility, Transfers,Gait,Activity Tolerance Progress Towards Goals Slow Progress due to Medical Issues,Slow Progress due to Activity Tolerance,Slow Progress - Other Assessment Summary Pt requires SBA during bed mob , CGA sit<> stand w/ FWW. Couldn't progress mobility further due to worsening dizziness and nausea and pt requested to return to bed. Increased hypertension during mobility, see vitals taken. Will continue to assess progress. Goals Bed Mobility Goal Independent Transfer Goal Standby Assistance,Front Wheeled Walker Gait Goal Standby Assistance,Front Wheel Walker Gait Distance 200 Days to Meet Goals 5 Frequency of Treatment Frequency Of Treatment Twice a Day Treatment Plan Physical Therapy Treatment Plan Bed Mobility Training,Transfer Training,Gait Training, Therapeutic Exercise,Balance Retraining,Post Op Education, Discharge Planning,Hot or Cold Pack,Neuromuscular Re-ed, Coordination Retraining,Manual Therapy Other Recommendations and Next Treatment check vitals,LE ex, transfers, Focus further distance gait. Weight Bearing Status Weight Bearing Status Weight Bear as Tolerated Allowed Weight Bearing Amount (enter % LLE INDERJIT or #) (%) Recommendations To Nursing Amount of Assist Needed Standby Assistance Discharge Recommendations PT Discharge Recommendations Home with / Assist Available,Home Health, Outpatient PT Transportation Needs at Discharge Private Vehicle
--- NOTE | 2021-07-08 10:42 | PM.PNPO.1 ---
Subjective Subjective Date Patient Seen: 07/08/21 Time Patient Seen: 10:43 Interval history: Patient states her knee pain is mild. Denies fever or chills. No nausea or vomiting. She reports she is having no chest pain or shortness of breath. Patient does have assistance at home to help her when she is discharged from the hospital. Exam Vital Signs (past 8 hours): - 07/08/21 05:00 Temperature 98.2 F Pulse Rate 78 Respiratory Rate 18 Blood Pressure 146/63 H Pulse Oximetry 99 Oxygen Delivery Method Room Air Oxygen Flow Rate 0 Narrative Exam Narrative: 80-year-old female resting comfortably in bed in no apparent distress. Dressing shows scant drainage otherwise intact. Motor functions intact bilateral lower extremities. Sensation grossly intact to light touch bilateral lower extremities. No lower extremity edema. Her calves are soft and nontender. Const General: cooperative and comfortable Orientation: alert and oriented x3 Objective Labs Result Diagrams: 07/04/21 05:25 07/08/21 06:00 Labs: Laboratory Results - last 24 hr 07/08/21 06:00 Sodium 137 Potassium 4.4 Chloride 104 Carbon Dioxide 27 BUN 18 H Creatinine 0.72 Estimated GFR > 60.0 BUN/Creatinine Ratio 25.0 H Glucose 88 Calcium 9.1 Magnesium 1.8 PFSH Medical History CAD (coronary artery disease) Constipation Depression Diastolic heart failure Family history of dementia Hearing loss in left ear Heartburn HTN (hypertension) Insomnia Pacemaker (11/24/20) Pneumonia (11/24/20) Primary osteoarthritis of right knee Trigeminal neuralgia of left side of face (~11/2019) Surgical History H/O bursectomy H/O repair of rotator cuff History of cholecystectomy History of hysterectomy History of knee surgery 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 Mobilize with physical therapy. Patient had mental status changes and consultation by hospitalist. Discharge home versus care home facility once stable per hospitalist.
--- NOTE | 2021-07-08 13:14 | PM.PN.1 ---
Subjective Subjective Date Patient Seen: 07/08/21 Time Patient Seen: 13:15 Interval history: No current neurological symptoms. Speech returned to baseline, no weakness noted. She remains orthostatic and dizzy with standing though this is improving. Her BP is slightly elevated this morning, tolerable in the setting of orthostasis. No syncope. Exam Vital Signs (past 8 hours): - 07/08/21 07:00 07/08/21 08:05 07/08/21 12:00 Temperature 98.8 F Pulse Rate 90 Pulse Rate [Orthostatic Lying] 87 Pulse Rate [Orthostatic Sitting] 87 Pulse Rate [Orthostatic Standing] 102 H Respiratory Rate 16 Blood Pressure 158/72 H 149/72 H Blood Pressure [Orthostatic Lying] 150/59 H Blood Pressure [Orthostatic Sitting] 167/2 H Blood Pressure [Orthostatic Standing] 177/64 H Pulse Oximetry 100 Oxygen Delivery Method Room Air Oxygen Flow Rate 0 Narrative Exam Narrative: GENERAL APPEARANCE: Well developed, well nourished, no acute distress. SKIN: Inspection of the skin reveals no rashes, ulcerations or petechiae. HEENT:? Normocephalic atraumatic, extraocular muscles are intact, oropharynx is clear and mucous membranes are moist, neck is supple without adenopathy NECK: Supple and symmetric. There was no thyroid enlargement, and no tenderness, or masses were felt. CHEST: Normal AP diameter and normal contour without any kyphoscoliosis. LUNGS: Auscultation of the lungs revealed no wheezes, rhonchi, or rales. CARDIOVASCULAR: There was a regular rate and rhythm without any murmurs, gallops, rubs. Peripheral pulses were 2+ and symmetric. ABDOMEN: Soft and nontender with normal bowel sounds. No ascites was noted. MUSCULOSKELETAL: There was no tenderness or effusions noted. Left leg bandages C/d/i. EXTREMITIES: No cyanosis, clubbing or edema. L leg swollen compared to right after recent surgery. NEUROLOGIC: Alert and oriented x 3. improved speech and weakness compared to yesterday. Objective Labs Result Diagrams: 07/04/21 05:25 07/08/21 06:00 Labs: Laboratory Results - last 24 hr 07/08/21 06:00 Sodium 137 Potassium 4.4 Chloride 104 Carbon Dioxide 27 BUN 18 H Creatinine 0.72 Estimated GFR > 60.0 BUN/Creatinine Ratio 25.0 H Glucose 88 Calcium 9.1 Magnesium 1.8 [facility] Medical History CAD (coronary artery disease) Constipation Depression Diastolic heart failure Family history of dementia Hearing loss in left ear Heartburn HTN (hypertension) Insomnia Pacemaker (11/24/20) Pneumonia (11/24/20) Primary osteoarthritis of right knee Trigeminal neuralgia of left side of face (~11/2019) Surgical History H/O bursectomy H/O repair of rotator cuff History of cholecystectomy History of hysterectomy History of knee surgery 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 Madrigal is a 80W admitted for L TKA who had episode of dizziness, found to have hypotension, and hyponatremia. 1. Symptomatic hypotension with hyponatremia with mild aortic stenosis -patient with positive orthostatic vital signs, continued symptoms today though blood pressures are improved -likely especially sensitive to fluid shifts due to aortic stenosis -improved with IV fluids, will need to allow some hypertension. -urine sodium at 54, consistent with SIADH. 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 -increased salt tabs to TID. Na now resolved. Can discharge on her usual daily dose. -EKG shows paced rhythm, with no acute abnormalities, troponin negative 2. L knee osteoarthritis s/p TKA -management per ortho 3. s/p PPM -doubt symptoms related to PPM dysfunction -tele without any acute events. 4. Acute weakness, speech difficulty, resolved. Either TIA or acute toxic metabolic encephalopathy. ?- patient with bilateral acute weakness starting suddently and speech deficits, they did improve slightly. Appears more metabolic possibly related to orthostasis or pain medications this AM. Code stroke was called. CT head and CTA head neck without acute abnormalities. Recommend repeat head CT in 24 hours to reassess, given history of PPM to evaluate for possible stroke however this was negative. Not a tPA candidate given unknown last known normal and recent surgery. - EKG without changes, troponin negative, no chest pain ?- restarted tele to evaluate for any possible PPM dysfunction, which showed no events. -differential does include TIA, she is on aspirin daily would recommend statin though she states she is allergic. Another possibility is a toxic encephalopathy due to opiate pain medications as it did happen shortly after administration. -recommend PMD follow up for orthostasis and discussion of medications after possible TIA. Patient remains symptomatic from orthostasis though she is improving, acute etiologies seemingly resolved. Would recommend PMD follow up and can discharge home from medicine perspective at this time. Medicine will sign off. Time Spent With Patient Critical Care time: I spent a total of [] minutes of critical care time on this patient's care today; this time is exclusive of procedural time.
[2021-07-08] MEDS: polyethylene glycoL 3350 17 GM POWD.PACK PO (13:24)
[2021-07-08] MEDS: OXYCODONE IR 10 MG TABLET PO (13:24)
--- NOTE | 2021-07-08 13:28 | PT-IP ANOTE ---
Attempted to see pt at 13:28, pt and her daughter refused PT this PM, stating that they feel safe to return home and want to conserve pts energy for transfer and ferry to [facility].
--- NOTE | 2021-07-08 16:12 | PC.NURSE ---
Discharge note: verbal order from Dr Sorensen for discharge home. Daughter will be assisting patient at home. PT cleared as well as hospitalist cleared medically. Scripts for Oxycodone and zofran sent to [facility] per Dr Sorensen. Instructed on dressing care, follow up and reviewed home meds to continue. All belongings with patient. wheeled to car in wheelchair; daughter driving. Priority ferry boarding pass provided to patient.
== END 2021-07-08 15:12 | disposition home or self-care (01) | DRG 982 ==
LOC: OR 09:44 → AC 09:44
PROVIDERS: Internal Medicine; Physician Assistant; Admitting Provider Orthopaedic Surgery; PCP Family Medicine; Referring Provider Family Medicine; Visit Provider Orthopaedic Surgery
PROC: 0SRD0JZ Replacement of Left Knee Joint with Synthetic Substitute, Open Approach (ICD-10-PCS; CPT 27447; principal; 2021-07-03 11:15)
DX: I95.9 Hypotension, unspecified (principal); E87.1 Hypo-osmolality and hyponatremia; M17.12 Unilateral primary osteoarthritis, left knee; I35.0 Nonrheumatic aortic (valve) stenosis; R53.1 Weakness; R47.02 Dysphasia; R41.0 Disorientation, unspecified; Z87.891 Personal history of nicotine dependence; Z20.822 Contact with and (suspected) exposure to COVID-19; Z95.0 Presence of cardiac pacemaker
CPT/HCPCS: 36415; 70450; 70496; 70498; 73560; 80048; 80053; 81001; 82550; 82553; 83735; 83935; 84300; 84439; 84443; 84484; 85014; 85018; 93005; 93010; 94762; 97116; 97162; 97530; C1776; C9290; J0171; J0690; J2250; J2270; J2274; J2405; J2704; J3010; Q9967

== ENCOUNTER 2023-12-30 15:23 | Emergency (ER) | payer BC, SELFPAY ==
[2021-07-03 14:48] VITALS: BMI 25.0
[2023-12-30 15:31] VITALS: BP 96/51; PULSE 86; RESP 16; TEMP 36.9; O2SAT 98; BMI 27.6
--- NOTE | 2023-12-30 15:48 | DI.RAD.S_ITS ---
PROCEDURE: XR HIP W PEL IF DONE LT 2V INDICATIONS: L Hip Pain, onset 5 days, no injury, hx fx/replacement 2022 TECHNIQUE: AP pelvis and lateral view of the hip acquired. COMPARISON: [facility] ([place]), CR, XR HIP W PEL IF DONE LT 2V, 01/08/2022, 14:03. FINDINGS: Bones: Patient is status post left hip arthroplasty, with hardware components in expected positions. No evidence of hardware loosening or failure. No acute periprosthetic fracture. No dislocation. Soft tissues: Overlying postoperative changes are noted. No suspicious soft tissue densities. IMPRESSION: Prior left total hip arthroplasty. No acute pelvic or hip fracture. No evidence of hardware loosening or failure. Dictated by: Trenton Santiago M.D. on 12/30/2023 at 16:23 Approved by: Trenton Santiago M.D. on 12/30/2023 at 16:24
[2023-12-30 17:40] VITALS: BP 121/56; PULSE 85; RESP 16; O2SAT 98
--- NOTE | 2023-12-30 17:50 | DI.RAD.S_ITS ---
PROCEDURE: XR SACRUM COCCYX MIN 2V INDICATIONS: back pain TECHNIQUE: 3 views of the sacrum and coccyx acquired. COMPARISON: [facility], CT, CT ABDOMEN PELVIS W CON, 11/11/2020, 18:05. [facility], CR, XR HIP W PEL IF DONE LT 2V, 12/30/2023, 15:51. [facility] ([place]), CR, XR HIP W PEL IF DONE LT 2V, 01/08/2022, 14:03. FINDINGS: Bones: No fractures or dislocations. Degenerative changes of the pubic symphysis and SI joints appear similar. Mild to moderate right hip DJD. No suspicious bony lesions. Left hip arthroplasty. Soft tissues: Visualized bowel gas pattern is normal. No suspicious soft tissue densities. IMPRESSION: No acute fracture identified. Please see separately dictated lumbar spine radiographs. Dictated by: Triston Cabello M.D. on 12/30/2023 at 18:30 Approved by: Triston Cabello M.D. on 12/30/2023 at 18:33
--- NOTE | 2023-12-30 17:50 | DI.RAD.S_ITS ---
PROCEDURE: XR LUMBAR SPINE 2-3V INDICATIONS: back pain TECHNIQUE: 3 views of the lumbar spine were acquired. COMPARISON: [facility], CT, CT ABDOMEN PELVIS W CON, 11/11/2020, 18:05. [facility], CR, L-SPINE 2-3 VIEWS, 10/30/2017, 12:17. FINDINGS: Bones: 5 [id number] vertebrae are present. There is normal bony alignment. Multilevel DDD. Mild height loss at L4 which is new compared to 2020. No suspicious bony lesions. Left hip arthroplasty. Soft tissues: Overlying bowel gas pattern is normal. No suspicious soft tissue calcifications. Cholecystectomy clips. IMPRESSION: L4 compression fracture which is new compared to 202. Age indeterminate. Dictated by: Triston Cabello M.D. on 12/30/2023 at 18:28 Approved by: Triston Cabello M.D. on 12/30/2023 at 18:30
--- NOTE | 2023-12-30 17:58 | ED_ITS ---
HPI - Extremity Problem <Monica Jay PA-C - Last Filed: 12/30/23 19:09> General Chief complaint: Extremity Problem,Nontraumatic Stated complaint: left hip px, sent by PCP Time Seen by Provider: 12/30/23 17:02 Source: patient and family Mode of arrival: Wheelchair History of Present Illness HPI Narrative: 83-year-old female with past medical history hyperlipidemia, osteoarthritis, status post left hip replacement, CAD presents to the ED with 6 days of left- sided hip pain. Patient denies any trauma. Patient states that the pain started spontaneously, she has been applying heating pads with little relief. Patient states that it is painful to bear weight and walk. Patient had a left hip fracture in August 2022 with hip replacement done. Patient denies numbness, tingling, weakness. Patient is not on blood thinners. Related Data Home Medications Medication Instructions Recorded Confirmed docusate sodium 100 mg capsule 100 mg PO DAILY 11/02/20 06/27/21 (Stool Softener) duloxetine 30 mg capsule,delayed 30 mg PO DAILY 11/02/20 07/03/21 release ferrous sulfate 325 mg (65 mg 325 mg PO DAILY 11/02/20 06/27/21 iron) tablet (Iron (ferrous sulfate)) hydroxyzine HCl 25 mg tablet 25 mg PO BEDTIME Sleep 11/02/20 07/03/21 polyethylene glycol 3350 17 17 g PO DAILY PRN Constipation 11/02/20 06/27/21 gram/dose oral powder (Miralax) aspirin 81 mg tablet,delayed 81 mg PO DAILY 06/27/21 07/03/21 release gabapentin 100 mg tablet 200 mg PO BEDTIME 06/27/21 07/03/21 melatonin 5 mg tablet 10 mg PO BEDTIME 06/27/21 06/27/21 omeprazole 20 mg capsule,delayed 20 mg PO DAILY 06/27/21 07/03/21 release pregabalin 50 mg capsule 50 mg PO BEDTIME 06/27/21 06/27/21 sodium chloride 1 gram tablet 1,000 mg PO DAILY 06/27/21 07/03/21 Allergies Allergy/AdvReac Type Severity Reaction Status Date / Time latex Allergy Severe Facial Verified 06/27/21 12:21 swelling Phenothiazines Allergy Severe THROAT Verified 11/18/20 14:56 [PHENOTHIAZINES] SWELLS SHUT prochlorperazine Allergy Severe Throat Verified 02/08/21 10:01 SWELLING tramadol Allergy Severe Throat Verified 06/27/21 12:21 swelling codeine [CODEINE] Allergy Intermediate ITCHING-OK Verified 02/08/21 10:01 if takes benadryl with it iodine Allergy Pt had a Verified 06/27/21 12:22 positive skin test, unsure reaction atorvastatin AdvReac Severe HEADACHE Verified 06/27/21 12:21 losartan AdvReac Severe HEADACHE Verified 06/27/21 12:21 baclofen AdvReac Intermediate DISORIENTATION, Verified 06/27/21 12:21 PARANOIA carbamazepine AdvReac Mild NAUSEA/VOMITING, Verified 06/27/21 12:21 FATIGUE SHELLFISH ALLERGY Allergy Severe Throat Uncoded 06/27/21 12:21 swelling Review of Systems <Monica Jay PA-C - Last Filed: 12/30/23 19:09> Constitutional Constitutional: Denies chills, Denies fatigue, Denies fever(s), Denies frequent falls, Denies lethargy and Denies weakness Eyes Eyes: Denies change in vision, Denies eye discharge, Denies irritation and Denies loss of vision ENT Ears, Nose, Mouth, and Throat: Denies change in voice, Denies dizziness, Denies neck pain, Denies sore throat and Denies throat swelling Cardiovascular Cardiovascular: Denies chest pain, Denies irregular heart rhythm, Denies lightheadedness, Denies palpitations, Denies dyspnea, Denies dyspnea on exertion and Denies orthopnea Respiratory Respiratory: Denies cough, Denies dyspnea, Denies dyspnea on exertion and Denies wheezing Gastrointestinal Gastrointestinal: Denies abdominal pain, Denies change in bowel habits, Denies diarrhea, Denies nausea and Denies vomiting Musculoskeletal Musculoskeletal: Denies neck pain and Denies numbness Comments: Left hip pain Integumentary/Breasts Skin/Breast: Denies pruritus, Denies erythema, Denies rash and Denies wounds Neurologic Neurologic: Denies behavioral changes, Denies confusion, Denies dizziness, Denies frequent falls, Denies loss of vision, Denies numbness and Denies weakness Psychiatric Psychiatric: Denies anxiety, Denies behavioral changes, Denies confusion, Denies depression, Denies homicidal ideation and Denies suicidal ideation Endocrine Endocrine: Denies fatigue, Denies flushing and Denies palpitations Hematologic/Lymphatic Hematologic/Lymphatic: Denies easy bruising Allergic/Immunologic Allergic/Immunologic: Denies urticaria, Denies throat swelling and Denies wheezing Patient History <Monica Jay PA-C - Last Filed: 12/30/23 19:09> Medical History Diastolic heart failure HTN (hypertension) CAD (coronary artery disease) Pneumonia (11/24/20) Pacemaker (11/24/20) Family history of dementia Depression Hearing loss in left ear Constipation Heartburn Insomnia Trigeminal neuralgia of left side of face (~11/2019) Primary osteoarthritis of right knee Surgical History 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) H/O repair of rotator cuff History of knee surgery H/O bursectomy History of cholecystectomy History of hysterectomy Family History Mother Old age Father Myocardial infarction Social History household members: family Smoking Status: Former smoker alcohol intake: current Smoking Status: Former smoker alcohol intake frequency: 0-2 drinks per day Substance Use Type: does not use Exam <Monica Jay PA-C - Last Filed: 12/30/23 19:09> Narrative Exam Narrative: Const General:?cooperative, healthy appearing and comfortable [facility] Head:?normal to inspection Ears:?hearing grossly normal bilaterally Nose:?external nose normal Face and sinus:?normal facial exam and sinuses nontender Mouth:?oral mucosae normal Throat:?posterior oropharynx normal Eyes General:?appearance normal, both eyes and all related structures Neck Neck:?normal visual inspection and no lymphadenopathy noted Resp Effort & Inspection:?normal respiratory effort Auscultation:?clear to auscultation bilaterally Cardio Rate:?regular rate Rhythm:?regular rhythm Musculoskeletal There is extensive ecchymosis extending from the sacrum laterally across to make buttock. Tender to palpation with underlying hematoma. Patient is able to bear weight and stand up. There is no midline tenderness of the lumbar spine. There is some tenderness in the sacrum and coccyx regions. Neuro General:?patient alert, patient awake and patient oriented x3 Initial Vital Signs Initial Vital Signs: Vital Signs Temperature 98.5 F 12/30/23 15:31 Pulse Rate 86 12/30/23 15:31 Respiratory Rate 16 12/30/23 15:31 Blood Pressure 96/51 L 12/30/23 15:31 Pulse Oximetry 98 12/30/23 15:31 Oxygen Delivery Method Room Air 12/30/23 15:31 <Da Garcia DO - Last Filed: 12/30/23 20:20> Initial Vital Signs Initial Vital Signs: Vital Signs Temperature 98.5 F 12/30/23 15:31 Pulse Rate 86 12/30/23 15:31 Respiratory Rate 16 12/30/23 15:31 Blood Pressure 96/51 L 12/30/23 15:31 Pulse Oximetry 98 12/30/23 15:31 Oxygen Delivery Method Room Air 12/30/23 15:31 Course <Monica Jay PA-C - Last Filed: 12/30/23 19:09> Orders Ordered: ED Orders 12/30/23 15:48 XR hip w pel if done LT 2V Stat 12/30/23 17:50 XR lumbar spine 2-3V Stat XR sacrum coccyx min 2V Stat Discontinued Medications Ketorolac Tromethamine (Ketorolac 30 Mg/Ml Vial) 30 mg IM NOW ONE Stop: 12/30/23 17:52 Last Admin: 12/30/23 18:16 Dose: 30 mg Documented By: RL Vital Signs Vital signs: Vital Signs - 8 hr 12/30/23 15:31 12/30/23 17:40 Temperature 98.5 F Pulse Rate 86 85 Respiratory Rate 16 16 Blood Pressure 96/51 L 121/56 L Pulse Oximetry 98 98 Oxygen Delivery Method Room Air Room Air <Da Garcia DO - Last Filed: 12/30/23 20:20> Orders Ordered: ED Orders 12/30/23 15:48 XR hip w pel if done LT 2V Stat 12/30/23 17:50 XR lumbar spine 2-3V Stat XR sacrum coccyx min 2V Stat Discontinued Medications Ketorolac Tromethamine (Ketorolac 30 Mg/Ml Vial) 30 mg IM NOW ONE Stop: 12/30/23 17:52 Last Admin: 12/30/23 18:16 Dose: 30 mg Documented By: RL Vital Signs Vital signs: Vital Signs - 8 hr 12/30/23 15:31 12/30/23 17:40 Temperature 98.5 F Pulse Rate 86 85 Respiratory Rate 16 16 Blood Pressure 96/51 L 121/56 L Pulse Oximetry 98 98 Oxygen Delivery Method Room Air Room Air MDM - Extremity (Nontraumatic) <Monica Jay PA-C - Last Filed: 12/30/23 19:09> [facility] Narrative Medical decision making narrative: 83-year-old female with past medical history hyperlipidemia, osteoarthritis, status post left hip replacement, CAD presents to the ED with 6 days of left- sided hip pain. Concern for fracture/dislocation versus musculoskeletal sprain/strain versus other. Obtained hip and pelvis x-ray which was without acute findings. Physical exam significant for ecchymosis of the sacral and left buttock area. Will obtain x-rays of the lumbar spine, sacrum and coccyx. Will give Toradol for pain. Will reassess. X-ray of the lumbar spine shows a L4 compression fracture which is new compared to 2020. Age indeterminate. Patient will need an ambulation trial to evaluate for a safe discharge. Patient is now signed out to Dr. Garcia. <Da Garcia DO - Last Filed: 12/30/23 20:20> [facility] Narrative Medical decision making narrative: 83-year-old female with past medical history hyperlipidemia, osteoarthritis, status post left hip replacement, CAD presents to the ED with 6 days of left- sided hip pain. Concern for fracture/dislocation versus musculoskeletal sprain/strain versus other. Obtained hip and pelvis x-ray which was without acute findings. Physical exam significant for ecchymosis of the sacral and left buttock area. Will obtain x-rays of the lumbar spine, sacrum and coccyx. Will give Toradol for pain. Will reassess. X-ray of the lumbar spine shows a L4 compression fracture which is new compared to 2020. Age indeterminate. Patient will need an ambulation trial to evaluate for a safe discharge. Patient is now signed out to Dr. Garcia. Dr garcia: Received turned over. Review patient's history and physical exam. Patient has a new L4 compression fracture compared to x-rays from 2020 however she has not tender over this area today. She does have a contusion along the left buttocks. She has been taking aspirin. No other blood thinners. Patient is requesting be discharged home. No further workup required here in the emergency department. Both family and patient were given return precautions. They expressed understanding and agreement. Discharge Plan Departure Patient Disposition: Home Clinical Impression: Closed compression fracture of L4 vertebra, Traumatic ecchymosis of hip Instructions: How to Prevent Falls Activity Restrictions/Additional Instructions: Continue to take all of your medications as directed. Contact your primary care doctor for a follow-up. Return to the emergency department for new or wors ening symptoms. Prescriptions: No Action ferrous sulfate [Iron (ferrous sulfate)] 325 mg (65 mg iron) Tablet 325 mg PO DAILY docusate sodium [Stool Softener] 100 mg Capsule 100 mg PO DAILY Patient Comments: Takes 1-3/day as needed hydroxyzine HCl 25 mg Tablet 25 mg PO BEDTIME polyethylene glycol 3350 [Miralax] 17 gram/dose Powder 17 g PO DAILY PRN (Reason: Constipation) duloxetine 30 mg Capsule,Delayed Release(Dr/Ec) 30 mg PO DAILY sodium chloride 1 gram Tablet 1,000 mg PO DAILY omeprazole 20 mg Capsule,Delayed Release(Dr/Ec) 20 mg PO DAILY gabapentin 100 mg Tablet 200 mg PO BEDTIME pregabalin 50 mg Capsule 50 mg PO BEDTIME melatonin 5 mg Tablet 10 mg PO BEDTIME aspirin 81 mg tablet,delayed release (DR/EC) 81 mg PO DAILY Referrals: Roseann Dietrich MD [Primary Care Provider] - Stand Alone Forms: Patient Portal/API
[2023-12-30] MEDS: KETOROLAC 30 MG/ML VIAL IM (18:16)
== END 2023-12-30 19:32 | disposition home or self-care (01) ==
PROVIDERS: Emergency Provider Student in an Organized Health Care Education/Training Program; PCP Family Medicine
DX: S32.040A Wedge compression fracture of fourth lumbar vertebra, initial encounter for closed fracture (principal); S70.00XA Contusion of unspecified hip, initial encounter; Z96.642 Presence of left artificial hip joint; Z79.899 Other long term (current) drug therapy
CPT/HCPCS: 72100; 72220; 73502; 96372; 99283; J1885

== ENCOUNTER 2024-04-06 19:28 | Emergency (ER) | payer BC, SELFPAY ==
[2021-07-03 14:48] VITALS: BMI 25.0
[2024-04-06 19:34] VITALS: BP 143/67; PULSE 76; RESP 16; TEMP 37.2; O2SAT 99; BMI 25.7
--- NOTE | 2024-04-06 19:41 | DI.RAD.S_ITS ---
PROCEDURE: XR HIP W PEL IF DONE LT 2V INDICATIONS: Fall, pain and difficulty ambulating TECHNIQUE: 2 views of the hip were acquired. COMPARISON: [facility], CR, XR HIP W PEL IF DONE LT 2V, 12/30/2023, 15:51. [facility] ([place]), CR, XR HIP W PEL IF DONE LT 2V, 01/08/2022, 14:03. FINDINGS: Bones: No fractures or dislocations. No suspicious bony lesions. The visualized pelvic ring appears intact. Well-aligned, intact left total hip arthroplasty without hardware complication. Soft tissues: No suspicious soft tissue calcifications or masses. IMPRESSION: No acute bony abnormality. Dictated by: Juan M Maynard M.D. on 04/06/2024 at 20:04 Approved by: Juan M Maynard M.D. on 04/06/2024 at 20:05
== END 2024-04-06 20:56 | disposition left against medical advice (07) ==
PROVIDERS: Emergency Provider Emergency Medicine; PCP Family Medicine
DX: M25.552 Pain in left hip (principal); W18.30XA Fall on same level, unspecified, initial encounter
CPT/HCPCS: 73502; 99281

== ENCOUNTER → 2025-07-27 08:48 | Outpatient (CLI) | payer BC, SELFPAY ==
[2021-07-03 14:48] VITALS: BMI 25.0
--- NOTE | 2025-07-27 08:50 | DI.RAD.S_ITS ---
PROCEDURE: XR LUMBAR SPINE MIN 4V INDICATIONS: chronic low back pain, L4 compression fracture follow up TECHNIQUE: 5 views of the lumbar spine acquired, including flexion and extension views. COMPARISON: [facility], CR, XR LUMBAR SPINE WITH FLEXION EXTENSION 5 VIEWS, 05/19/2025, 16:09. [facility], CR, L-SPINE 2-3 VIEWS, 10/30/2017, 12:17. FINDINGS: Bones: Stable 40% digit anterior wedge compression deformity at L1. Stable 25% superior endplate compression deformity at L4. No new compression fractures are identified. Osteopenia. Dextroscoliosis of the lumbar spine. No listhesis. Diffuse degenerative disc disease is most pronounced at the moderately narrowed L3-4, L4-5 and L5-S1 disc spaces. Multilevel facet arthropathy is most pronounced at L3-4, L4-5 and L5-S1. Soft tissues: Overlying bowel gas pattern is normal. No suspicious soft tissue calcifications. Flexion/extension: There is normal range of motion, with preserved normal alignment. IMPRESSION: Stable compression deformities at L1 and L4. No new fractures. Multilevel degenerative disc and facet arthropathy as described above. Dictated by: Savannah Burgos M.D. on 07/27/2025 at 23:27 Approved by: Savannah Burgos M.D. on 07/27/2025 at 23:30
== END ==
PROVIDERS: PCP Family Medicine; Referring Provider Physical Medicine & Rehabilitation; Visit Provider Physical Medicine & Rehabilitation
DX: S32.040A Wedge compression fracture of fourth lumbar vertebra, initial encounter for closed fracture (principal); S32.010A Wedge compression fracture of first lumbar vertebra, initial encounter for closed fracture; M81.0 Age-related osteoporosis without current pathological fracture; M41.9 Scoliosis, unspecified; M51.360 Other intervertebral disc degeneration, lumbar region with discogenic back pain only; M51.370 Other intervertebral disc degeneration, lumbosacral region with discogenic back pain only; M47.816 Spondylosis without myelopathy or radiculopathy, lumbar region; M47.817 Spondylosis without myelopathy or radiculopathy, lumbosacral region
CPT/HCPCS: 72110